=== PATIENT | female | born 1940 | race Caucasian/White ===

== ENCOUNTER 2017-02-11 22:50 | Inpatient (IN) | payer MEDICARE ==
[~2017-02-11] VITALS: Ht 149.9 cm; Wt 72.1 kg
[~2017-02-11 22:50] MED LIST: ACET-2321 PO; AMLO10TA57 PO; AMOX250T PO; ASPI-558 PO; ATEN-39 PO; B2/V1TAB PO; BENZ-16 PO; CARV12.52 PO; CARV25TA2 PO; CLOP75TA PO; HYDR25TA PO; LORA10TA62 PO; METF500T4 PO; OMEP-29 PO; PROM5SYR PO; SIMV20TA89 PO
--- OUTSIDE RECORDS SUMMARY | 2017-02-11 22:54 | XMS REPORT | Referral Summary ---
Author Author [facility] Organization [facility] Address Unknown Phone Unavailable Care Team Providers Care Manager Web Application Name Role Phone Avery Perez Primary Care Physician [phone] Encounter VC Date(s): 02/12/16 - 02/12/16 [facility] [address] [place] [address]- Discharge Disposition: 01-Home or Self Care Attending Physician: Jori Perez MD Admitting Physician: Jori Perez MD Vital Signs Most recent to 1 oldest [Reference Range]: Peripheral Pulse 44 bpm Rate [60-100 bpm] *LOW* (02/12/16 3:43 PM) Blood Pressure 130/70 mmHg [90-140/60-90 mmHg] (02/12/16 3:43 PM) Mean Arterial 90 mmHg Pressure, Cuff (02/12/16 3:43 PM) Problem List Condition Effective Dates Status Health Status Informant Acquired hammer Active toe(Confirmed) Allergies(Confirmed) Active Allergies(Confirmed) Resolved Arthritis(Confirmed) Resolved Bronchitis(Confirmed Resolved ) Cataract(Confirmed) Resolved Cerebral vascular Active accident(Confirmed) Chicken Resolved pox(Confirmed) Coronary artery Active disease(Confirmed) Depression(Confirmed Active ) Deviated nasal Resolved septum(Confirmed) Diabetes(Confirmed) Resolved Dysphagia(Confirmed) Active Ectopic 1969 Resolved (Confirmed) Fatigue(Confirmed) Active GERD(Confirmed) Active Anticoagulation Active adequate(Confirmed) HX ECTOPIC Active (Confirmed) Headaches - Active Tension(Confirmed) Hearing Resolved loss(Confirmed) High blood Resolved pressure(Confirmed) High Active Cholesterol(Confirme d) Hyperlipemia(Confirm Active ed) Incontinence - Active urge(Confirmed) Insomnia(Confirmed) Active Irritable bowel Resolved syndrome(Confirmed) Obesity(Confirmed) Active patient Osteoarthritis(Confi Active rmed) Osteopenia(Confirmed Active ) Osteoporosis(Confirm Active ed) Overweight(Confirmed Active ) Pneumonia(Confirmed) Resolved Sinus Resolved infection(Confirmed) Transient ischemic 1992 Active attack (TIA)(Confirmed)1, 2 1TIA Plavix 2blood thinner Allergies, Adverse Reactions, Alerts No Known Medication Allergies Medications amLODIPine 5 mg oral tablet 5 mg 1 tabs, Oral, Daily, # 90 tabs, 3 Refill(s), Pharmacy: [facility] [id number], 1 tabs Oral Daily Start Date: 01/17/16 Status: Ordered Aspir 81 mg, Oral, Daily, 0 Refill(s) Start Date: 04/25/14 Status: Ordered carvedilol 25 mg oral tablet See Instructions, Take 1/2 tab q am, and 1 tab q pm., # 135 tabs, 4 Refill(s), other reason (Rx), 1 tabs Oral BID Start Date: 02/09/16 Status: Ordered Claritin 10 mg oral tablet 1 tabs, Oral, Daily, # 30 tabs, 0 Refill(s) Start Date: 04/25/14 Status: Ordered clopidogrel 75 mg oral tablet See Instructions, TAKE 1 TABLET BY MOUTH EVERY DAY, # 90 tabs, 0 Refill(s), Pharmacy: [facility] [id number], TAKE 1 TABLET BY MOUTH EVERY DAY Start Date: 01/15/16 Status: Ordered [place] NEXT TEST STRIPS 100'S See Instructions, USE TO TEST BLOOD SUGARS ONCE DAILY, # 100 strip, 2 Refill(s) , eRx: [facility] [id number], USE TO TEST BLOOD SUGARS ONCE DAILY Start Date: 05/16/15 Status: Ordered cyclobenzaprine 10 mg oral tablet See Instructions, 0.5-1 TABS ORAL Q8HR,PRN: NEEDED FOR SPASM, # 100 tabs, eRx : [facility] [id number], 0.5-1 TABS ORAL Q8HR,PRN: NEEDED FOR SPASM Start Date: 10/24/15 Status: Ordered doxycycline hyclate 100 mg oral capsule 100 mg 1 caps, Oral, BID, X 7 days, # 14 caps, 0 Refill(s), Pharmacy: [facility] [id number], 1 caps Oral BID,x7 days Start Date: 02/12/16 Stop Date: 02/19/16 Status: Ordered Glucometer strips (DME) DME Item patient tests 1 time daily for dx. 250.00 Uses [employer] next EZ Monitor, See Instructions, # 1 boxes, 3 Refill(s), Pharmacy: [facility] [id number], patient tests 1 time daily for dx. 250.00 Uses [employer] next EZ Monitor, Supply Start Date: 07/20/14 Status: Ordered hydrochlorothiazide 25 mg oral tablet See Instructions, TAKE 1 TABLET BY MOUTH DAILY, # 45 tabs, eRx: [facility] [id number], TAKE 1 TABLET BY MOUTH DAILY Start Date: 01/01/16 Status: Ordered ICaps with Lutein and Zeaxan tabs, Oral, Daily, 0 Refill(s) Start Date: 04/25/14 Status: Ordered lutein 10 mg, Oral, Daily, 0 Refill(s) Start Date: 02/09/16 Status: Ordered metFORMIN 500 mg oral tablet See Instructions, 1 TABS ORAL DAILY, # 90 tabs, 1 Refill(s), eRx: [facility] [id number], 1 TABS ORAL DAILY Start Date: 08/21/15 Status: Ordered pravastatin 40 mg oral tablet 40 mg 1 tabs, Oral, Daily, # 90 tabs, 5 Refill(s), Pharmacy: [facility] [id number], 1 tabs Oral Daily Start Date: 09/27/15 Status: Ordered PriLOSEC 20 mg oral delayed release capsule See Instructions, TAKE 1 CAPSULE BY MOUTH EVERY DAY., # 90 caps, 1 Refill(s), eRx: [facility] [id number], TAKE 1 CAPSULE BY MOUTH EVERY DAY. Start Date: 08/21/15 Status: Ordered Tylenol Regular Strength 325 mg oral tablet tabs, Oral, q4hr, 0 Refill(s) Start Date: 04/25/14 Status: Ordered Results No data available for this section Immunizations Vaccine Date Refusal Reason tetanus/diphth/pertuss (Tdap) adult/adol 05/27/13 influenza virus vaccine, inactivated1 07/05/15 influenza virus vaccine, live 06/29/13 influenza virus vaccine, live 06/24/12 pneumococcal 13-valent conjugate vaccine2 07/05/15 tetanus-diphth toxoids (Td) adult/adol 12/16/02 zoster vaccine live 05/09/14 1Location History: [facility] 2Location History: [facility] Procedures Procedure Date Related Diagnosis Body Site Laparoscopic cholecystectomy with 5/28/15 cholangiography Colonoscopies1 05/11/10 Colonoscopy 2010 ECTOPIC 1969 Appendectomy Plastic surgery2 plastic surgery on nose 1MULTIADENOMATOUS POLYPS 3 YEARS REPEAT 2nose Social History Social History Type Response Smoking Status Never smoker Assessment and Plan Extracted from: Title: Ambulatory Patient Education Author: Jori Perez MD Date: Home Health Care Cellulitis Cellulitis is an infection of the skin and the tissue beneath it. The infected area is usually red and tender. Cellulitis occurs most often in the arms and lower legs. CAUSES Cellulitis is caused by bacteria that enter the skin through cracks or cuts in the skin. The most common types of bacteria that cause cellulitis are staphylococci and streptococci. SIGNS AND SYMPTOMS Redness and warmth. Swelling. Tenderness or pain. Fever. DIAGNOSIS Your health care provider can usually determine what is wrong based on a physical exam. Blood tests may also be done. TREATMENT Treatment usually involves taking an antibiotic medicine. HOME CARE INSTRUCTIONS Take your antibiotic medicine as directed by your health care provider. Finish the antibiotic even if you start to feel better. Keep the infected arm or leg elevated to reduce swelling. Apply a warm cloth to the affected area up to 4 times per day to relieve pain. Take medicines only as directed by your health care provider. Keep all follow-up visits as directed by your health care provider. SEEK MEDICAL CARE IF: You notice red streaks coming from the infected area. Your red area gets larger or turns dark in color. Your bone or joint underneath the infected area becomes painful after the skin has healed. Your infection returns in the same area or another area. You notice a swollen bump in the infected area. You develop new symptoms. You have a fever. SEEK IMMEDIATE MEDICAL CARE IF: You feel very sleepy. You develop vomiting or diarrhea. You have a general ill feeling (malaise) with muscle aches and pains. MAKE SURE YOU: Understand these instructions. Will watch your condition. Will get help right away if you are not doing well or get worse. This information is not intended to replace advice given to you by your health care provider. Make sure you discuss any questions you have with your health care provider. Document Released: 06/18/2006 Document Revised: 01/23/2015 Document Reviewed: Exit[employer] Patient Information 2015 [employer]. No follow up information was provided. Extracted from: Title: Office Visit Note Author: Jori Perez MD Date: 02/12/16 Assessment/Plan Brown recluse spider bite Routine wound care discussed. Doxycycline 100mg po bid for seven days. Call report. Needs to postpone surgery on foot if not resolved prior to surgery date.RTC sooner ifworse in any way. The patient has family members present who are agreeable with today's plan and have no additional concerns or requests. here. Cellulitis See above. Given doxycycline. Diabetes The patient was notified for the need for regular quarterly f/u of their diabetes. Further any pertinent medication, supplies, etc were refilled. Additionally, they are to have annual eye exams, foot exams, and regular care. High blood pressure This issue was reviewed, appears stable, and current therapy continued except as mentioned. Appropriate lab was reviewed from the most recent appropriate entry and lab was ordered if needed in the cpoe/nursing orders, and follow up recommended generally in 90 days and no later then six months. The patient reports their blood pressure has been stable at home and is not having any significant or related problems. There has been no chest pain, chest pressure, soa/dominguez. Orders: doxycycline, 100 mg 1 caps, Oral, BID, X 7 days, # 14 caps, 0 Refill(s ), [id number], 1 caps Oral BID,x7 days
--- OUTSIDE RECORDS SUMMARY | 2017-02-11 22:54 | XMS REPORT | Continuity of Care Document ---
Author Author [facility] Organization [facility] Address Unknown Phone Unavailable Support Name Relationship Address Phone ALLYSON DONNELLY APRN Caregiver [address] [place] [address] Unavailable FARIDEH PATEL MD Caregiver [address] [place] [address] [place] [address] Unavailable MUNIRA HELMS Next Of Kin [place], [place] [phone] Insurance Providers Guarantor Margoth Adames Address [address] [place] [address] Email DENIED/NO TO PT PORT Payer Medicare Policy Number [id number] Subscriber's Name Margoth Adames Relationship 18 Self Payer [facility] Policy Number [id number] Subscriber's Name Margoth Adames Johnny Relationship 18 Self Group Number [id number] Chief Complaint and Reason for Visit Chief Complaint Cough,Fever,Flu,URI Reason for Visit Otitis media Bronchitis Problems Active Problems Medical Problem Onset Date Status Acute cholecystitis Unknown Acute Fatigue Unknown Acute Nausea Unknown Acute PVCs (premature ventricular contractions) Unknown Acute Palpitations Unknown Acute Symptomatic cholelithiasis Unknown Acute Viral gastroenteritis Unknown Acute Past Problems Medical Problem Onset Date Bronchitis Unknown Otitis media Unknown Medications Current Home Medications Medication Dose Units Route Directions Days Qty Instructions Start Date Acetaminophen (Tylenol) 325 Mg Tablet 1 Tab Oral Daily as needed for Pain 02/15/15 Amlodipine Besylate (Norvasc) 10 Mg Tablet 10 Mg Oral Daily 05/11 Amoxicillin Trihydrate (Amoxicillin) 250 Mg Tablet 1 Tab Oral Three Times A Day [address] Almanza protocol provider 05/22/16 Aspirin (Aspir 81) 81 Mg Tablet. 81 Mg Oral Daily 05/11/10 Atenolol 50 Mg Tablet 50 Mg Oral Daily 05/11/10 B2/Vit A,C & E/Lut/Zeaxanth/Mn (Icaps Tablet) 1 Each Tablet.er 1 Tab Oral Daily 02/15/15 Benzonatate 100 Mg Capsule 1 Cap Oral Every 6 Hours as needed for Cough 10 Days 40 Capsule DO NOT BITE, CHEW, OR CRUSH 05/22/16 Carvedilol 12.5 Mg Tablet 1 Tab Oral Daily BEST WITH FOOD. 02/23/16 Carvedilol 25 Mg Tablet 1 Tab Oral Bedtime BEST WITH FOOD. 02/23/16 Clopidogrel Bisulfate (Plavix) 75 Mg Tablet 1 Tab Oral Daily Hydrochlorothiazide 25 Mg Tablet 1 Tab Oral Give With Breakfast 02/04/15 Loratadine (Claritin) 10 Mg Tablet 1 Tab Oral Daily 02/15/15 Metformin Hcl 500 Mg Tablet 500 Mg Oral Give With Breakfast Take one tablet, by mouth, one time a day with breakfast. 02/04/15 Omeprazole (Prilosec) 20 Mg Capsule.dr 20 Mg Oral Daily 12/19/10 Promethazine Hcl/Codeine (Prometh-Codein 6.25-10 Mg/5 Ml) 5 Ml Syrup 5 Ml Oral Bedtime as needed for Prn Orders [address] Almanza protocol provider 05/22/16 Simvastatin 20 Mg Tablet 20 Mg Oral Bedtime 12/19/10 Past Home Medications Medication Directions Ordered Status Aspirin 325 Mg Tablet, 325 Mg Oral Daily 05/10/10 Discontinued Clopidogrel Bisulfate (Plavix) 75 Mg Tablet, 75 Mg Oral Daily 05/10/10 Discontinued Clopidogrel Bisulfate (Plavix) 75 Mg Tablet, 75 Mg Oral 12/19/10 Discontinued Hydrocodone/Acetaminophen (Hydrocodon-Acetaminophen 5-325) 1 Tab Tablet, 1-2 Tab Oral Every 5 Hours as needed for Pain 02/17/15 Discontinued Ranitidine Hcl 150 Mg Capsule, 150 Mg Oral Daily 05/11/10 Discontinued Social History Social History Problem Response Recorded Date/Time Onset Date Status Hx Substance Use No 02/21/2016 3:00pm Not Applicable Not Applicable Hx Alcohol Use Y GLASS OF WINE OCCASIONALLY 02/21/2016 3:00pm Not Applicable Not Applicable Has the pt used tobacco in the last 12 months No 02/21/2016 3:00pm Not Applicable Not Applicable Tobacco Usage none 02/04/2015 7:20pm Not Applicable Not Applicable Hospital Discharge Instructions No hospital discharge instructions. Plan of Care Discharge Date 05/22/16 1:00pm Disposition 01 DISCHARGED HOME, SELF-CARE Condition at Discharge Stable Instructions/Education Provided Middle Ear Infection Acute Bronchitis Prescriptions See Medication Section Referrals FARIDEH PATEL MD Address: [address] [place] [address] [place], [place] [phone] Functional Status No functional status results. Allergies, Adverse Reactions, Alerts Allergen Type Severity Reaction Status Last Updated No Known Drug Allergies Allergy Unknown Active 05/22/16 Immunizations Query Response on File Recorded Date/Time Hx Influenza Vaccination Y fall 201402/21/16 3:00pm Hx Pneumococcal Vaccination Y WITHIN PAST 5 YEARS 02/21/16 3:00pm Hx Influenza Vaccination Y fall 201402/21/16 3:00pm Influenza Vaccine Hx 201405/22/16 12:19pm Tetanus Diptheria Vaccine History UNKNOWN 05/22/16 12:19pm Vital Signs Acute Vital Signs Vital Response Date/Time Temperature (Fahrenheit) 99.1 deg F (96.8 - 99.1) 05/22/2016 12:16pm Temperature (Calculated Celsius) 37.91219 degrees C (36.0 - 37.3) 05/22/2016 12:16pm Temperature Source Temporal 02/23/2016 9:18am Pulse Rate (adult) 58 bpm (60 - 100) 05/22/2016 12:16pm Respiratory Rate 23 breaths/min (10 - 20) 05/22/2016 12:16pm O2 Sat by Pulse Oximetry 95 % (90 - 100) 05/22/2016 12:16pm Oxygen Delivery Method Room Air 02/23/2016 10:10am Blood Pressure 131/66 mm Hg 05/22/2016 12:16pm Blood Pressure Source Automatic Cuff 02/23/2016 10:10am Height (Feet) 4 feet 02/23/2016 7:24am Height (Inches) 11.00 inches 02/23/2016 7:24am Weight (Kilograms) 72.200 kg 05/22/2016 12:16pm Body Mass Index (BMI) 31.3 02/23/2016 7:24am Results Laboratory Results Test Name Result Units Flags Reference Collection Date/Time Result Date/ Time Comments Icterus Index < 2 0-7 02/23/2016 7:27am 02/23/2016 7:45am Chemistry Specimen Hemolysis < 15 0-25 02/23/2016 7:27am 02/23/2016 7 :45am 0-25: Specimen Exhibited No Hemolysis. Turbidity < 20 0-20 02/23/2016 7:27am 02/23/2016 7:45am Sodium Level 142 MEQ/L 134-144 02/23/2016 7:27am 02/23/2016 7:45am Potassium Level 3.4 MEQ/L L 3.6-5 02/23/2016 7:27am 02/23/2016 7:45am Chloride Level 106 MEQ/L 98-107 02/23/2016 7:am 02/23/2016 7:45am Carbon Dioxide Level 27 MEQ/L 22-30 02/23/2016 7:02/23/2016 7: 45am Anion Gap 9 MEQ/L 5-15 02/23/2016 7:02/23/2016 7:45am Blood Urea Nitrogen 22.0 MG/DL H 7-17 02/23/2016 7:02/23/2016 7: 45am Creatinine 0.6 MG/DL L 0.7-1.2 02/23/2016 7:am 02/23/2016 7:45am BUN/Creatinine Ratio 37 RATIO H 6-02/23/2016 7:02/23/2016 7: 45am Glomerular Filtration Rate Calc 97 02/23/2016 7:am 02/23/2016 7: 45am Glucose Level 124 MG/DL H 65-110 02/23/2016 7:am 02/23/2016 7:45am Calculated Osmolality 277 MOSM/KG 261-280 02/23/2016 7:am 02/23/2016 7:45am Calcium Level 9.0 MG/DL 8.4-10.2 02/23/2016 7:27am 02/23/2016 7:45am Glucometer 122 mg/dL H 65-110 02/23/2016 7:52am 02/23/2016 8:00am Procedures Procedure Status Date Provider(s) REPAIR OF HAMMERTOE Completed 02/23/16 RAVIN GUTIERREZ DPIsrael ROUTINE VENIPUNCTURE Completed 02/23/16 X-RAY EXAM OF FOOT Completed 02/23/16 METABOLIC PANEL TOTAL CA Completed 02/23/16 REAGENT STRIP/BLOOD GLUCOSE Completed 02/23/16 635294"INJECTION, CEFAZOLIN SODIUM, 500 MG" Completed 02/23/16 PROPOFOL INJ 500 MG/50ML Completed 02/23/16 061299"RINGERS LACTATE INFUSION, UP TO 1000 CC" Completed 02/23/16 Encounters Encounter Location Arrival/Admit Date Discharge/Depart Date Attending Provider Departed Emergency Room [facility] 05/22/16 12:06pm 05/22/16 1: 00pm ALLYSON DONNELLY APRN Departed [facility] Day Care [facility] 02/23/16 6:54am 02/23/16 10 :18am RAVIN GUTIERREZ DPM Recent Diagnosis
--- OUTSIDE RECORDS SUMMARY | 2017-02-11 22:54 | XMS REPORT | Referral Summary ---
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 Name Role Phone Avery Perez Primary Care Physician [phone] Encounter VC Date(s): 02/07/15 - 02/07/15 [facility] [address] [place] [address] TERRENCE Bell [phone]- us Discharge Diagnosis: History of stroke Discharge Diagnosis: Gallstones Discharge Diagnosis: Pain in the RUQ of abdomen Discharge Disposition: 01-Home or Self Care Attending Physician: Brian Araya MD Admitting Physician: Brian Araya MD Referring Physician: Jori Perez MD Vital Signs Most recent to 1 oldest [Reference Range]: Temperature Tympanic 37 degC [36.6-38.1 degC] (02/07/15 9:05 AM) Peripheral Pulse 64 bpm Rate [60-100 bpm] (02/07/15 9:05 AM) Respiratory Rate 16 br/min [14-20 br/min] (02/07/15 9:05 AM) Blood Pressure 110/60 mmHg [90-140/60-90 mmHg] (02/07/15 9:05 AM) Problem List Condition Effective Dates Status Health Status Informant Allergies(Confirmed) Active Allergies(Confirmed) Resolved Arthritis(Confirmed) Resolved Bronchitis(Confirmed Resolved ) Cataract(Confirmed) Resolved Cerebral vascular Active accident(Confirmed) Chicken Resolved pox(Confirmed) Coronary artery Active disease(Confirmed) Depression(Confirmed Active ) Deviated nasal Resolved septum(Confirmed) Diabetes(Confirmed) Resolved Dysphagia(Confirmed) Active Ectopic 1969 Resolved (Confirmed) Fatigue(Confirmed) Active GERD(Confirmed) Active HX ECTOPIC Active (Confirmed) Headaches - Active [...] Reactions, Alerts No Known Medication Allergies Medications Aspir 81 mg, Oral, Daily, 0 Refill(s) Start Date: 04/25/14 Status: Ordered atenolol 50 mg oral tablet See Instructions, TAKE 1 TABLET BY MOUTH TWICE A DAY., # 180 tabs, eRx: [facility] [id number], TAKE 1 TABLET BY MOUTH TWICE A DAY. Start Date: 02/27/15 Status: Ordered Claritin 10 mg oral tablet 1 tabs, Oral, Daily, # 30 tabs, 0 Refill(s) Start Date: 04/25/14 Status: Ordered clopidogrel 75 mg oral tablet 1 tabs, Oral, Daily, # 90 tabs, 1 Refill(s), Pharmacy: [facility] [id number], 1 tabs Oral Daily Start Date: 01/23/15 Status: Ordered [place] NEXT TEST STRIPS 100'S See Instructions, USE TO TEST BLOOD SUGARS ONCE DAILY, # 100 strip, 2 Refill(s) , eRx: [facility] [id number], USE TO TEST BLOOD SUGARS ONCE DAILY Start Date: 05/16/15 Status: Ordered cyclobenzaprine 10 mg oral tablet See Instructions, 0.5-1 TABS ORAL Q8HR,PRN: NEEDED FOR SPASM, # 100 tabs, eRx : [facility] [id number], 0.5-1 TABS ORAL Q8HR,PRN: NEEDED FOR SPASM Start Date: 08/08/14 Status: Ordered Glucometer strips (DME) DME Item patient tests 1 time daily for dx. 250.00 Uses [facility] next EZ Monitor, See Instructions, # 1 boxes, 3 Refill(s), Pharmacy: [facility] [id number], patient tests 1 time daily for dx. 250.00 Uses [facility] next EZ Monitor, Supply Start Date: 07/20/14 Status: Ordered ICaps with Lutein and Zeaxan tabs, Oral, Daily, 0 Refill(s) Start Date: 04/25/14 Status: Ordered metFORMIN 500 mg oral tablet See Instructions, 1 TABS ORAL DAILY, # 90 tabs, eRx: [facility] [id number] , 1 TABS ORAL DAILY Start Date: 05/15/15 Status: Ordered Norvasc 10 mg oral tablet See Instructions, TAKE 1 TABLET BY MOUTH EVERY DAY., # 90 tabs, eRx: [facility] 93933, TAKE 1 TABLET BY MOUTH EVERY DAY. Start Date: 05/15/15 Status: Ordered Plavix 75 mg tablet See Instructions, TAKE 1 TABLET BY MOUTH EVERY DAY., # 90 tabs, eRx: [facility] 72710, TAKE 1 TABLET BY MOUTH EVERY DAY. Start Date: 01/23/15 Status: Ordered PriLOSEC 20 mg oral delayed release capsule See Instructions, TAKE 1 CAPSULE BY MOUTH EVERY DAY., # 90 caps, eRx: [facility] [id number], TAKE 1 CAPSULE BY MOUTH EVERY DAY. Start Date: 05/15/15 Status: Ordered Tylenol Regular Strength 325 mg oral tablet tabs, Oral, q4hr, 0 Refill(s) Start Date: 04/25/14 Status: Ordered Zocor 20 mg oral tablet See Instructions, 1 TABS ORAL BEDTIME (ONCE A DAY), # 90 tabs, 1 Refill(s), eRx : [facility] 00339, 1 TABS ORAL BEDTIME (ONCE A DAY) Start Date: 03/27/15 Status: Ordered Zofran ODT 4 mg oral tablet, disintegrating 4 mg 1 tabs, Oral, q6hr, as needed for nausea/vomiting, 0 Refill(s) Start Date: 07/20/15 Status: Ordered Results No data available for this section Immunizations Vaccine Date Refusal Reason tetanus/diphth/pertuss (Tdap) adult/adol 05/27/13 influenza virus vaccine, inactivated1 07/05/15 influenza virus vaccine, live 06/29/13 influenza virus vaccine, live 06/24/12 pneumococcal 13-valent conjugate vaccine2 07/05/15 tetanus-diphth toxoids (Td) adult/adol 12/16/02 zoster vaccine live 05/09/14 1Location History: [facility] 2Location History: [facility] Procedures Procedure Date Related Diagnosis Body Site Laparoscopic cholecystectomy with 02/16/15 cholangiography Colonoscopies1 05/11/10 Colonoscopy 2010 ECTOPIC 1969 Appendectomy Plastic surgery2 plastic surgery on nose 1MULTIADENOMATOUS POLYPS 3 YEARS REPEAT 2nose Social History Social History Type Response Smoking Status Never smoker Assessment and Plan Extracted from: Title: Ambulatory Patient Education Author: Antonia Foss WEB PRODUCER Date : 02/07/15 Surgery Laparoscopic Cholecystectomy Laparoscopic cholecystectomy is surgery to remove the gallbladder. The gallbladder is located in the upper right part of the abdomen, behind the liver. It is a storage sac for bile produced in the liver. Bile aids in the digestion and absorption of fats. Cholecystectomy is often done for inflammation of the gallbladder (cholecystitis ). This condition is usually caused by a buildup of gallstones (cholelithiasis ) in your gallbladder. Gallstones can block the flow of bile, resulting in inflammation and pain. In severe cases, emergency surgery may be required. When emergency surgery is not required, you will have time to prepare for the procedure. Laparoscopic surgery is an alternative to open surgery. Laparoscopic surgery has a shorter recovery time. Your common bile duct may also need to be examined during the procedure. If stones are found in the common bile duct, they may be removed. LET YOUR HEALTH CARE PROVIDER KNOW ABOUT: Any allergies you have. All medicines you are taking, including vitamins, herbs, eye drops, creams , and mppb-whl-pgoceay medicines. Previous problems you or members of your family have had with the use of anesthetics. Any blood disorders you have. Previous surgeries you have had. Medical conditions you have. RISKS AND COMPLICATIONS Generally, this is a safe procedure. However, as with any procedure, complications can occur. Possible complications include: Infection. Damage to the common bile duct, nerves, arteries, veins, or other internal organs such as the stomach, liver, or intestines. Bleeding. A stone may remain in the common bile duct. A bile leak from the cyst duct that is clipped when your gallbladder is removed. The need to convert to open surgery, which requires a larger incision in the abdomen. This may be necessary if your surgeon thinks it is not safe to continue with a laparoscopic procedure. BEFORE THE PROCEDURE Ask your health care provider about changing or stopping any regular medicines. You will need to stop taking aspirin or blood thinners at least 5 days prior to surgery. Do not eat or drink anything after midnight the night before surgery. Let your health care provider know if you develop a cold or other infectious problem before surgery. PROCEDURE You will be given medicine to make you sleep through the procedure ( general anesthetic ). A breathing tube will be placed in your mouth. When you are asleep, your surgeon will make several small cuts (incisions ) in your abdomen. A thin, lighted tube with a tiny camera on the end (laparoscope ) is inserted through one of the small incisions. The camera on the laparoscope sends a picture to a TV screen in the operating room. This gives the surgeon a good view inside your abdomen. A gas will be pumped into your abdomen. This expands your abdomen so that the surgeon has more room to perform the surgery. Other tools needed for the procedure are inserted through the other incisions. The gallbladder is removed through one of the incisions. After the removal of your gallbladder, the incisions will be closed with stitches, gela, or skin glue. AFTER THE PROCEDURE You will be taken to a recovery area where your progress will be checked often. You may be allowed to go home the same day if your pain is controlled and you can tolerate liquids. Document Released: 09/08/2006 Document Revised: 06/29/2014 Document Reviewed: [facility] Patient Information 2014 [employer]. No follow up information was provided. Extracted from: Title: Office Visit Note Author: Antonia Foss APRN Date: 02/07/15 Assessment/Plan Gallstones Ordered: Office Visit Level 3 Est 69464 History of stroke She has stopped her Plavix on Friday. Platelet inhibition study drawn this morning is 155 Ordered: Office Visit Level 3 Est 82623 Pain in the RUQ of abdomen Ordered: Office Visit Level 3 Est 52997 Records from emergency room visit in Dr. Araya's notes reviewed. CT scan obtained in the emergency department revealed findings compatible with acute cholecystitis. There was no radiographic gallstones seen on CT scan. There is the WBC on the was 6.01 on the it increased 11.8. She was discharged to home on Friday with Levaquin 500 mg by mouth daily for 7 days. Her AST and ALT were elevated at 237 and 201 respectively in the hospital and today's lab at [facility] indicate the AST and ALT have declined to 53 and 135 respectively. Bilirubin on 05 February was 0.80 and today her bilirubin is 1.50. Her platelet inhibition study done today reveals a score of 155. Reference presurgical range recommended is greater than 237. Levels less than 194 are highly indicative of platelet inhibitor effect. It was our original goal to perform laparoscopic cholecystectomy later today, given the fact that she has a gallstone lodged in the neck of her gallbladder. But, given the fact that her platelet inhibition study reveals her to be at greater risk for bleeding and the fact that she is not acutely ill, having minimal pain, and her liver function tests have improved, it is advised by Dr. Araya that we postpone surgery until the original February 16 date. If she becomes acutely ill before that time she presented is to present tothe emergency room or our office.
--- OUTSIDE RECORDS SUMMARY | 2017-02-11 22:54 | XMS REPORT | Referral Summary ---
Author Author [facility] Organization [facility] Address Unknown Phone Unavailable Care Team Providers Care Film Reader Name Role Phone Avery Perez Primary Care Physician [phone] Encounter Date(s): 07/28/15 - 07/28/15 [facility] [address] [place] [id number] Discharge Disposition: 01-Home or Self Care Attending Physician: Jori Perez MD Admitting Physician: Jori Perez MD Vital Signs No data available for this section Problem List Condition Effective Dates Status Health [...] TWICE A DAY., # 180 tabs, eRx: [facility] [id number], TAKE 1 TABLET BY MOUTH TWICE A DAY. Start Date: 02/27/15 Status: Ordered Claritin 10 mg oral tablet 1 tabs, Oral, Daily, # 30 tabs, 0 Refill(s) Start Date: 04/25/14 Status: Ordered clopidogrel 75 mg oral tablet 1 tabs, Oral, Daily, # 90 tabs, 1 Refill(s), Pharmacy: [facility] 16519, 1 tabs Oral Daily Start Date: 01/23/15 Status: Ordered charity: water NEXT TEST STRIPS 100'S See Instructions, USE TO TEST BLOOD SUGARS ONCE DAILY, # 100 strip, 2 Refill(s) , eRx: [facility] 19355, USE TO TEST BLOOD SUGARS ONCE DAILY Start Date: 05/16/15 Status: Ordered cyclobenzaprine 10 mg oral tablet See Instructions, 0.5-1 TABS ORAL Q8HR,PRN: NEEDED FOR SPASM, # 100 tabs, eRx : [facility] 64723, 0.5-1 TABS ORAL Q8HR,PRN: NEEDED FOR SPASM Start Date: 08/08/14 Status: Ordered Glucometer strips (DME) DME Item patient tests 1 time daily for dx. 250.00 Uses [facility] next EZ Monitor, See Instructions, # 1 boxes, 3 Refill(s), Pharmacy: [facility] 98864, patient tests 1 time daily for dx. 250.00 Uses [employer] next EZ Monitor, Supply Start Date: 07/20/14 Status: Ordered ICaps with Lutein and Zeaxan tabs, Oral, Daily, 0 Refill(s) Start Date: 04/25/14 Status: Ordered metFORMIN 500 mg oral tablet See Instructions, 1 TABS ORAL DAILY, # 90 tabs, eRx: [facility] [id number] , 1 TABS ORAL DAILY Start Date: 05/15/15 Status: Ordered Norvasc 10 mg oral tablet See Instructions, TAKE 1 TABLET BY MOUTH EVERY DAY., # 90 tabs, eRx: [facility] [id number], TAKE 1 TABLET BY MOUTH EVERY DAY. Start Date: 05/15/15 Status: Ordered Plavix 75 mg tablet See Instructions, TAKE 1 TABLET BY MOUTH EVERY DAY., # 90 tabs, eRx: [facility] 87127, TAKE 1 TABLET BY MOUTH EVERY DAY. Start Date: 01/23/15 Status: Ordered PriLOSEC 20 mg oral delayed release capsule See Instructions, TAKE 1 CAPSULE BY MOUTH EVERY DAY., # 90 caps, eRx: [facility] 29685, TAKE 1 CAPSULE BY MOUTH EVERY DAY. Start Date: 05/15/15 Status: Ordered Tylenol Regular Strength 325 mg oral tablet tabs, Oral, q4hr, 0 Refill(s) Start Date: 04/25/14 Status: Ordered Zocor 20 mg oral tablet See Instructions, 1 TABS ORAL BEDTIME (ONCE A DAY), # 90 tabs, 1 Refill(s), eRx : [facility] 68299, 1 TABS ORAL BEDTIME (ONCE A DAY) [...] 12/16/02 zoster vaccine live 05/09/14 1Location History: [facility] 2Location [facility] Procedures Procedure Date Related Diagnosis Body Site Laparoscopic cholecystectomy with 02/16/15 cholangiography Colonoscopies1 05/11/10 Colonoscopy 2010 ECTOPIC 1969 Appendectomy Plastic surgery2 plastic surgery on nose 1MULTIADENOMATOUS POLYPS 3 YEARS REPEAT 2nose Social History Social History Type Response Smoking Status Never smoker Assessment and Plan No data available for this section
--- OUTSIDE RECORDS SUMMARY | 2017-02-11 22:54 | XMS REPORT | Referral Summary ---
Author Author [facility] Organization [facility] Address Unknown Phone Unavailable Care Team Providers Care Branch Service Leader Name Role Phone Avery Perez Primary Care Physician [phone] Encounter VC Date(s): 02/16/15 - 02/16/15 [facility] [address] [place] [address] T[place] Bell [phone]- Discharge Disposition: 01-Home or Self Care Attending Physician: Brian Zelaya MD Admitting Physician: Brian Zelaya MD Vital Signs No data available for [...] MOUTH TWICE A DAY., # 180 tabs, 1 Refill(s), eRx: [facility] [id number], TAKE 1 TABLET BY MOUTH TWICE A DAY. Start Date: 08/21/15 Status: Ordered Claritin 10 mg oral tablet 1 tabs, Oral, Daily, # 30 tabs, 0 Refill(s) Start Date: 04/25/14 Status: Ordered clopidogrel 75 mg oral tablet 1 tabs, Oral, Daily, # 90 tabs, 1 Refill(s), Pharmacy: [facility] 33387, 1 tabs Oral Daily Start Date: 01/23/15 Status: Ordered [place]3 NEXT TEST STRIPS 100'S See Instructions, USE TO TEST BLOOD SUGARS ONCE DAILY, # 100 strip, 2 Refill(s) , eRx: [facility] 76231, USE TO TEST BLOOD SUGARS ONCE DAILY Start Date: 05/16/15 Status: Ordered cyclobenzaprine 10 mg oral tablet See Instructions, 0.5-1 TABS ORAL Q8HR,PRN: NEEDED FOR SPASM, # 100 tabs, eRx : [facility] 21180, 0.5-1 TABS ORAL Q8HR,PRN: NEEDED FOR SPASM Start Date: 08/08/14 Status: Ordered Glucometer strips (DME) DME Item patient tests 1 time daily for dx. 250.00 Uses [facility] next EZ Monitor, See Instructions, # 1 boxes, 3 Refill(s), Pharmacy: [facility] 62306, patient tests 1 time daily for dx. 250.00 Uses [facility] next EZ Monitor, Supply Start Date: 07/20/14 Status: Ordered hydrochlorothiazide 25 mg oral tablet mg tabs, Oral, Daily, 0 Refill(s) Start Date: 08/24/15 Status: Ordered ICaps with Lutein and Zeaxan tabs, Oral, Daily, 0 Refill(s) Start Date: 04/25/14 Status: Ordered metFORMIN 500 mg oral tablet See Instructions, 1 TABS ORAL DAILY, # 90 tabs, 1 Refill(s), eRx: [facility] [id number], 1 TABS ORAL DAILY Start Date: 08/21/15 Status: Ordered Norvasc 10 mg oral tablet See Instructions, TAKE 1 TABLET BY MOUTH EVERY DAY., # 90 tabs, 1 Refill(s), eRx : [facility] 72225, TAKE 1 TABLET BY MOUTH EVERY DAY. Start Date: 08/21/15 Status: Ordered Plavix 75 mg tablet See Instructions, TAKE 1 TABLET BY MOUTH EVERY DAY., # 90 tabs, eRx: [facility] 09989, TAKE 1 TABLET BY MOUTH EVERY DAY. Start Date: 01/23/15 Status: Ordered PriLOSEC 20 mg oral delayed release capsule See Instructions, TAKE 1 CAPSULE BY MOUTH EVERY DAY., # 90 caps, 1 Refill(s), eRx: [facility] 70147, TAKE 1 CAPSULE BY MOUTH EVERY DAY. Start Date: 08/21/15 Status: Ordered Tylenol Regular Strength 325 mg oral tablet tabs, Oral, q4hr, 0 Refill(s) Start Date: 04/25/14 Status: Ordered Zofran ODT 4 mg oral [...] Body Site Laparoscopic cholecystectomy with 02/16/15 cholangiography Laparoscopy, surgical; cholecystectomy with 02/16/15 cholangiography Colonoscopies1 05/11/10 Colonoscopy 2010 ECTOPIC 1969 Appendectomy Plastic surgery2 plastic surgery on nose 1MULTIADENOMATOUS POLYPS 3 YEARS REPEAT 2nose Social History Social History Type Response Smoking Status Never smoker Assessment and Plan No data available for this section
--- OUTSIDE RECORDS SUMMARY | 2017-02-11 22:54 | XMS REPORT | Referral Summary ---
Author Organization Unknown Address Unknown Phone Unavailable Care Team Providers Care Tax Adjuster Name Role Phone Avery Perez Primary Care Physician [phone] Encounter [facility] [id number] Date(s): 11/09/14 - 11/09/14 [facility] Danyell Shea, Otolaryngology [address] [place], [place] [address] Discharge Diagnosis: ACTINIC KERATOSIS Discharge Disposition: Home or Self Care Attending Physician: Carlos Lewis MD Admitting Physician: Carlos Lewis MD Vital Signs No data available for this section Problem List Condition Effective Dates Status Health Status Informant Allergies(Confirmed) Resolved Arthritis(Confirmed) Resolved Bronchitis(Confirmed Resolved ) Cataract(Confirmed) Resolved Chicken Resolved pox(Confirmed) Deviated nasal Resolved septum(Confirmed) Diabetes(Confirmed) Resolved Hearing Resolved loss(Confirmed) High blood Resolved pressure(Confirmed) Irritable bowel Resolved syndrome(Confirmed) Obesity(Confirmed) Active patient Pneumonia(Confirmed) Resolved Sinus Resolved infection(Confirmed) Allergies, Adverse Reactions, Alerts No Known Medication Allergies Medications Aspir 81 mg, Oral, Daily, 0 Refill(s) Start Date: 04/25/14 Status: Ordered atenolol 50 mg oral tablet See Instructions, TAKE 1 TABLET BY MOUTH TWICE A DAY., # 180 tabs, 2 Refill(s), eRx: [facility] [id number], TAKE 1 TABLET BY MOUTH TWICE A DAY. Special Instructions: TAKE 1 TABLET BY MOUTH TWICE A DAY. Start Date: 04/26/14 Status: Ordered Claritin 10 mg oral tablet 1 tabs, Oral, Daily, # 30 tabs, 0 Refill(s) Start Date: 04/25/14 Status: Ordered cyclobenzaprine 10 mg oral tablet See Instructions, 0.5-1 TABS ORAL Q8HR,PRN: NEEDED FOR SPASM, # 100 tabs, eRx : [facility] [id number], 0.5-1 TABS ORAL Q8HR,PRN: NEEDED FOR SPASM Special Instructions: 0.5-1 TABS ORAL Q8HR,PRN: NEEDED FOR SPASM Start Date: 08/08/14 Status: Ordered Glucometer strips (DME) DME Item patient tests 1 time daily for dx. 250.00 Uses [facility] next EZ Monitor, See Instructions, # 1 boxes, 3 Refill(s), Pharmacy: [facility] [id number], patient tests 1 time daily for dx. 250.00 Uses [facility] next EZ Monitor, Supply Special Instructions: patient tests 1 time daily for dx. 250.00 Uses [facility] EZ Monitor Start Date: 07/20/14 Status: Ordered hydrochlorothiazide 25 mg oral tablet See Instructions, TAKE 1 TABLET BY MOUTH EVERY DAY, # 90 tabs, eRx: [facility] [id number], TAKE 1 TABLET BY MOUTH EVERY DAY Special Instructions: TAKE 1 TABLET BY MOUTH EVERY DAY Start Date: 10/14/14 Status: Ordered ICaps with Lutein and Zeaxan tabs, Oral, Daily, 0 Refill(s) Start Date: 04/25/14 Status: Ordered metFORMIN 500 mg oral tablet See Instructions, 1 TABS ORAL DAILY, # 90 tabs, eRx: [facility] [id number] , 1 TABS ORAL DAILY Special Instructions: 1 TABS ORAL DAILY Start Date: 10/14/14 Status: Ordered Norvasc 10 mg oral tablet See Instructions, TAKE 1 TABLET BY MOUTH EVERY DAY., # 90 tabs, eRx: [facility] [id number], TAKE 1 TABLET BY MOUTH EVERY DAY. Special Instructions: TAKE 1 TABLET BY MOUTH EVERY DAY. Start Date: 10/14/14 Status: Ordered Plavix 75 mg tablet See Instructions, TAKE 1 TABLET BY MOUTH EVERY DAY., # 90 tabs, eRx: [facility] [id number], TAKE 1 TABLET BY MOUTH EVERY DAY. Special Instructions: TAKE 1 TABLET BY MOUTH EVERY DAY. Start Date: 10/14/14 Status: Ordered Plavix 75 mg tablet See Instructions, TAKE 1 TABLET BY MOUTH EVERY DAY., # 90 tabs, eRx: [facility] [id number], TAKE 1 TABLET BY MOUTH EVERY DAY. Special Instructions: TAKE 1 TABLET BY MOUTH EVERY DAY. Start Date: 07/13/14 Status: Ordered PriLOSEC 20 mg oral delayed release capsule See Instructions, TAKE 1 CAPSULE BY MOUTH EVERY DAY., # 90 caps, eRx: [facility] 95671, TAKE 1 CAPSULE BY MOUTH EVERY DAY. Special Instructions: TAKE 1 CAPSULE BY MOUTH EVERY DAY. Start Date: 10/14/14 Status: Ordered Tylenol Regular Strength 325 mg oral tablet tabs, Oral, q4hr, 0 Refill(s) Start Date: 04/25/14 Status: Ordered Zocor 20 mg oral tablet See Instructions, 1 TABS ORAL BEDTIME (ONCE A DAY), # 90 tabs, eRx: [facility] 12249, 1 TABS ORAL BEDTIME (ONCE A DAY) Special Instructions: 1 TABS ORAL BEDTIME (ONCE A DAY) Start Date: 08/30/14 Status: Ordered Results No data available for this section Immunizations Vaccine Date Refusal Reason influenza virus vaccine, live 06/29/13 influenza virus vaccine, live 06/24/12 tetanus-diphth toxoids (Td) adult/adol 12/16/02 zoster vaccine live 05/09/14 Procedures Procedure Date Related Diagnosis Body Site Colonoscopy 2010 Plastic surgery1 1nose Social History Social History Type Response Smoking Status Never smoker Assessment and Plan Extracted from: Title: Office Visit Note Author: Carlos Lewis MD Date: 11/09/14 Assessment/Plan 1.ACTINIC KERATOSIS There does not appear to be any significant change since previously seen. There is some left nasal rim crease and right lateral nasal dorsum were both examined under microscopy. She will report back for follow-up examination in 2 months. Ordered: Office Visit Level 3 Est 26426
--- OUTSIDE RECORDS SUMMARY | 2017-02-11 22:54 | XMS REPORT | Continuity of Care Document ---
Author Author [facility] Organization [facility] Address Unknown Phone Unavailable Allergies Medications Problems Procedures Results Encounters ACCT No. Visit Date/Time Discharge Status Pt. Type Provider Facility Loc./Unit Complaint [id number] 11/04/2013 15:14:00 11/04/2013 23 :59:59 CLS Outpatient
--- OUTSIDE RECORDS SUMMARY | 2017-02-11 22:54 | XMS REPORT | Referral Summary ---
Author Author [facility] Organization [facility] Address Unknown Phone Unavailable Care Team Providers Care Primer Charging Tool Setter Name Role Phone Avery Perez Primary Care Physician [phone] Encounter VC Date(s): 07/03/16 - 07/03/16 [facility] [address] [place], [place] [address] Discharge Diagnosis: Trigger finger Discharge Disposition: 01-Home or Self Care Attending Physician: Markus Hernandez MD Admitting Physician: Markus Hernandez MD Referring Physician: Becca Perez Vital Signs No data available for this [...] Daily, # 90 tabs, 3 Refill(s), Pharmacy: [facility] [id number], 1 tabs Oral Daily Start Date: 01/17/16 [...] MOUTH EVERY DAY, # 90 tabs, eRx: [facility] [id number], TAKE 1 TABLET BY MOUTH EVERY DAY Start Date: 04/17/16 Status: Ordered GetQuik NEXT TEST STRIPS 100'S See Instructions, USE TO TEST BLOOD SUGARS ONCE DAILY, # 100 strip, 2 Refill(s) , eRx: [facility] [id number], USE TO TEST BLOOD SUGARS ONCE DAILY Start Date: 05/16/15 Status: Ordered cyclobenzaprine 10 mg oral tablet See Instructions, 0.5-1 TABS ORAL Q8HR,PRN: NEEDED FOR SPASM, # 100 tabs, eRx : [facility] [id number], 0.5-1 TABS ORAL Q8HR,PRN: NEEDED FOR SPASM Start Date: 10/24/15 Status: Ordered Glucometer strips (DME) DME Item patient tests 1 time daily for dx. 250.00 Uses Andrew [employer] Cauldron next EZ Monitor, See Instructions, # 1 boxes, 3 Refill(s), Pharmacy: [facility] [id number], patient tests 1 time daily for dx. 250.00 Uses Positron Contour next EZ Monitor, Supply Start Date: 07/20/14 Status: Ordered hydrochlorothiazide 25 mg oral tablet See Instructions, TAKE 1 TABLET BY MOUTH DAILY, # 45 tabs, eRx: [facility] [id number], TAKE 1 TABLET BY MOUTH DAILY Start Date: 06/06/16 Status: Ordered ICaps with Lutein and Zeaxan tabs, Oral, Daily, 0 Refill(s) Start Date: 04/25/14 Status: Ordered lutein 10 mg, Oral, Daily, 0 Refill(s) Start Date: 02/09/16 Status: Ordered metFORMIN 500 mg oral tablet See Instructions, TAKE 1 TABLET BY MOUTH DAILY, # 90 tabs, [facility], TAKE 1 TABLET BY MOUTH DAILY Start Date: 06/07/16 Status: Ordered omeprazole 40 mg oral delayed release capsule 40 mg 1 caps, Oral, Daily, # 90 caps, 0 Refill(s), [facility], 1 caps Oral Daily Start Date: 05/29/16 Status: Ordered pravastatin 40 mg oral tablet 40 mg 1 tabs, Oral, Daily, # 90 tabs, 5 Refill(s), [facility] 98[facility], 1 tabs Oral Daily Start Date: 09/27/15 Status: Ordered Tylenol Regular Strength 325 mg oral tablet tabs, Oral, q4hr, 0 Refill(s) Start Date: 04/25/14 Status: Ordered Results No data available for this section Immunizations Vaccine Date Refusal Reason tetanus/diphth/pertuss (Tdap) adult/adol 05/27/13 influenza virus vaccine, inactivated 05/29/16 influenza virus vaccine, inactivated1 07/05/15 influenza virus vaccine, live 06/29/13 influenza virus vaccine, live 06/24/12 pneumococcal 13-valent conjugate vaccine2 07/05/15 tetanus-diphth toxoids (Td) adult/adol 12/16/02 zoster vaccine live 05/09/14 [facility] Procedures Procedure Date Related Diagnosis Body Site Injection(s); single tendon sheath, or 07/03/16 ligament, aponeurosis (eg, plantar "fascia") Injection(s); single tendon sheath, or 07/03/16 ligament, aponeurosis (eg, plantar "fascia") Laparoscopic cholecystectomy with 02/16/15 cholangiography Colonoscopies1 05/11/10 Colonoscopy 2010 ECTOPIC 1969 Appendectomy Plastic surgery2 plastic surgery on nose 1MULTIADENOMATOUS POLYPS 3 YEARS REPEAT 2nose Social History Social History Type Response Smoking Status Never smoker Assessment and Plan Extracted from: Title: Office Visit Note Author: Markus Hernandez MD Date: 07/03/16 Assessment/Plan The patient has bilateral trigger fingers. We will inject both today. I did explain to her that these are less effective in diabetics. I explained to her thatallen cantu have some increase in her blood sugar. She is a non -insulin-dependent diabetic and I explained to the patient that she needs to watch her blood sugar and taken carefully to assure this doesn't govery high and would necessitate the use of insulin. If this occurs she needs to give us a call. The patient will have injections on bothdigits and thenreturn in 4 weeks for follow-up. She will return to see hernurse practitioner in 4 weeks to see if another injection may be necessary. Injection:20 mg Kenalog Technique: Chlorhexidine prep of the palm at the base of theright long and left ring digit was performed. 1 percent lidocaine with epinephrine was injected as a field block. This was allowed to sit for 2 minutes. Injection of 40 mg of Kenalog into the A1 diogenes at a 45 angle was performed to theright long and left ring. Full range of motion after the injection. No signs of complication. Band-Aid placed.
--- OUTSIDE RECORDS SUMMARY | 2017-02-11 22:55 | XMS REPORT | Referral Summary ---
Author Author [facility] Organization [facility] Address Unknown Phone Unavailable Care Team Providers Care Crate Opener Name Role Phone Avery Perez Primary Care Physician [phone] Encounter VC Date(s): 08/06/16 - 08/06/16 [facility] [address] [place], [place] [address] Discharge Diagnosis: Left trigger finger Discharge Disposition: 01-Home or Self Care Attending Physician: Miranda Gilbert APRN Admitting Physician: Miranda Gilbert APRN Vital Signs Most recent to 1 oldest [Reference Range]: Respiratory Rate 20 br/min [14-20 br/min] (08/06/16 9:20 AM) Problem List Condition Effective Dates Status [...] Daily, # 90 tabs, 3 Refill(s), Pharmacy: [facility] [id number], 1 tabs Oral Daily Start Date: 01/17/16 [...] MOUTH EVERY DAY, # 90 tabs, eRx: [facility] [id number], TAKE 1 TABLET BY MOUTH EVERY DAY Start Date: 07/22/16 Status: Ordered Shoopi NEXT TEST STRIPS 100'S See Instructions, USE TO TEST BLOOD SUGARS ONCE DAILY, # 100 strip, 2 Refill(s) , eRx: [facility] [id number], USE TO TEST BLOOD SUGARS ONCE DAILY Start Date: 05/16/15 Status: Ordered cyclobenzaprine 10 mg oral tablet See Instructions, 0.5-1 TABS ORAL Q8HR,PRN: NEEDED FOR SPASM, # 100 tabs, eRx : [facility] [id number], 0.5-1 TABS ORAL Q8HR,PRN: NEEDED FOR SPASM Start Date: 10/24/15 Status: Ordered Glucometer strips (DME) DME Item patient tests 1 time daily for dx. 250.00 Uses [employer] next EZ Monitor, See Instructions, # 1 boxes, 3 Refill(s), Pharmacy: [facility] [id number], patient tests 1 time daily for dx. 250.00 Uses [employer] next EZ Monitor, Supply Start Date: 07/20/14 Status: Ordered hydroCHLOROthiazide 25 mg oral tablet See Instructions, TAKE 1 TABLET BY MOUTH DAILY, # 45 tabs, eRx: [facility] [id number], TAKE 1 TABLET BY MOUTH DAILY Start Date: 08/02/16 Status: Ordered hydrochlorothiazide 25 mg oral tablet See Instructions, TAKE 1 TABLET BY MOUTH DAILY, # 45 tabs, eRx: [facility] 79724, TAKE 1 TABLET BY MOUTH DAILY Start Date: 06/06/16 Status: Ordered ICaps with Lutein and Zeaxan tabs, Oral, Daily, 0 Refill(s) Start Date: 04/25/14 Status: Ordered lutein 10 mg, Oral, Daily, 0 Refill(s) Start Date: 02/09/16 Status: Ordered metFORMIN 500 mg oral tablet See Instructions, TAKE 1 TABLET BY MOUTH DAILY, # 90 tabs, eRx: [facility] 79016, TAKE 1 TABLET BY MOUTH DAILY Start Date: 06/07/16 Status: Ordered omeprazole 40 mg oral delayed release capsule 40 mg 1 caps, Oral, Daily, # 90 caps, 0 Refill(s), Pharmacy: [facility] 61484, 1 caps Oral Daily Start Date: 05/29/16 Status: Ordered pravastatin 40 mg oral tablet 40 mg 1 tabs, Oral, Daily, # 90 tabs, 5 Refill(s), Pharmacy: [facility] 79887, 1 tabs Oral Daily Start Date: 09/27/15 [...] live 05/09/14 1[facility] History[facility] Procedures Procedure Date Related Diagnosis Body Site Laparoscopic cholecystectomy with 02/16/15 cholangiography Colonoscopies1 05/11/10 Colonoscopy 2010 ECTOPIC 1969 Appendectomy Plastic surgery2 plastic surgery on nose 1MULTIADENOMATOUS POLYPS 3 YEARS REPEAT 2nose Social History Social History Type Response Smoking Status Never smoker Assessment and Plan Extracted from: Title: Office Visit Note Author: Gilbert Miranda M BLAST FURNACE BLOWER Date: 08/06/16 Assessment/Plan 1.Left trigger finger Improvement in triggering to both hands.Briefly discussedsurgical options vs repeat injections. Patient would prefer to continue to monitor at this time. She will let us know ifneeding further intervention. My card was given to patient and questions were answered. Ordered: Office Visit Level 2 Est 78138 Extracted from: Title: Ambulatory Patient Education Author: Miranda Gilbert BLAST FURNACE BLOWER Date: Musculoskeletal Trigger Finger Trigger finger (digital tendinitis and stenosing tenosynovitis) is a common disorder that causes an often painful catching of the fingers or thumb. It occurs as a clicking, snapping, or locking of a finger in the palm of the hand. This is caused by a problem with the tendons that flex or bend the fingers sliding smoothly through their sheaths. The condition may occur in any finger or a couple fingers at the same time. The finger may lock with the finger curled or suddenly straighten out with a snap. This is more common in patients with rheumatoid arthritis and diabetes. Left untreated, the condition may get worse to the point where the finger becomes locked in flexion, like making a fist, or less commonly locked with the finger straightened out. CAUSES Inflammation and scarring that lead to swelling around the tendon sheath. Repeated or forceful movements. Rheumatoid arthritis, an autoimmune disease that affects joints. Gout. Diabetes mellitus. SIGNS AND SYMPTOMS Soreness and swelling of your finger. A painful clicking or snapping as you bend and straighten your finger. DIAGNOSIS Your health care provider will do a physical exam of your finger to diagnose trigger finger. TREATMENT Splinting for 68 weeks may be helpful. Nonsteroidal anti-inflammatory medicines (NSAIDs) can help to relieve the pain and inflammation. Cortisone injections, along with splinting, may speed up recovery. Several injections may be required. Cortisone may give relief after one injection. Surgery is another treatment that may be used if conservative treatments do not work. Surgery can be minor, without incisions (a cut does not have to be made), and can be done with a needle through the skin. Other surgical choices involve an open procedure in which the surgeon opens the hand through a small incision and cuts the diogenes so the tendon can again slide smoothly. Your hand will still work fine. HOME CARE INSTRUCTIONS Apply ice to the injured area, twice per day: Put ice in a plastic bag. Place a towel between your skin and the bag. Leave the ice on for 20 minutes, 34 times a day. Rest your hand often. MAKE SURE YOU: Understand these instructions. Will watch your condition. Will get help right away if you are not doing well or get worse. This information is not intended to replace advice given to you by your health care provider. Make sure you discuss any questions you have with your health care provider. Document Released: 06/28/2005 Document Revised: 05/11/2014 Document Reviewed: Elsevier Interactive Patient Education 2016 Elsevier Inc. No follow up information was provided.
--- OUTSIDE RECORDS SUMMARY | 2017-02-11 22:55 | XMS REPORT | Referral Summary ---
Author Author [facility] [place] Organization [facility] [place] Address Unknown Phone Unavailable Care Team Providers Care Ear Flap Binder Name Role Phone Avery Perez Primary Care Physician [phone] Encounter VC Date(s): 02/04/15 - 02/04/15 [facility] [address] [place] [address] [place] [address]- Discharge Disposition: 01-Home or Self Care Attending [...] TWICE A DAY., # 180 tabs, eRx: [facility] [id number], TAKE 1 TABLET BY MOUTH TWICE A DAY. Start Date: 02/27/15 Status: Ordered Claritin 10 mg oral tablet 1 tabs, Oral, Daily, # 30 tabs, 0 Refill(s) Start Date: 04/25/14 Status: Ordered clopidogrel 75 mg oral tablet 1 tabs, Oral, Daily, # 90 tabs, 1 Refill(s), Pharmacy: [facility] 32144, 1 tabs Oral Daily Start Date: 01/23/15 Status: Ordered [employer] NEXT TEST STRIPS 100'S See Instructions, USE TO TEST BLOOD SUGARS ONCE DAILY, # 100 strip, 2 Refill(s) , eRx: [facility] [id number], USE TO TEST BLOOD SUGARS ONCE DAILY Start Date: 05/16/15 Status: Ordered cyclobenzaprine 10 mg oral tablet See Instructions, 0.5-1 TABS ORAL Q8HR,PRN: NEEDED FOR SPASM, # 100 tabs, eRx : [facility] 91874, 0.5-1 TABS ORAL Q8HR,PRN: NEEDED FOR SPASM Start Date: 08/08/14 Status: Ordered Glucometer strips (DME) DME Item patient tests 1 time daily for dx. 250.00 Uses Andrwe Contour next EZ Monitor, See Instructions, # 1 boxes, 3 Refill(s), Pharmacy: [facility] 73841, patient tests 1 time daily for dx. 250.00 Uses Channel M next EZ Monitor, Supply Start Date: 07/20/14 Status: Ordered ICaps with Lutein and Zeaxan tabs, Oral, Daily, 0 Refill(s) Start Date: 04/25/14 Status: Ordered metFORMIN 500 mg oral tablet See Instructions, 1 TABS ORAL DAILY, # 90 tabs, eRx: [facility] 29577 , 1 TABS ORAL DAILY Start Date: 05/15/15 Status: Ordered Norvasc 10 mg oral tablet See Instructions, TAKE 1 TABLET BY MOUTH EVERY DAY., # 90 tabs, eRx: [facility] 42191, TAKE 1 TABLET BY MOUTH EVERY DAY. Start Date: 05/15/15 Status: Ordered Plavix 75 mg tablet See Instructions, TAKE 1 TABLET BY MOUTH EVERY DAY., # 90 tabs, eRx: [facility] 16189, TAKE 1 TABLET BY MOUTH EVERY DAY. Start Date: 01/23/15 Status: Ordered PriLOSEC 20 mg oral delayed release capsule See Instructions, TAKE 1 CAPSULE BY MOUTH EVERY DAY., # 90 caps, eRx: [facility] 35653, TAKE 1 CAPSULE BY MOUTH EVERY DAY. Start Date: 05/15/15 Status: Ordered Tylenol Regular Strength 325 mg oral tablet tabs, Oral, q4hr, 0 Refill(s) Start Date: 04/25/14 Status: Ordered Zocor 20 mg oral tablet See Instructions, 1 TABS ORAL BEDTIME (ONCE A DAY), # 90 tabs, 1 Refill(s), eRx : [facility] 66587, 1 TABS ORAL BEDTIME (ONCE A DAY) [...]
--- OUTSIDE RECORDS SUMMARY | 2017-02-11 22:55 | XMS REPORT | Referral Summary ---
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 Name Role Phone Avery Perez Primary Care Physician [phone] Encounter VC Date(s): 01/17/16 - 01/17/16 [facility] [place] [address] [place] [address] [place] [address]- Discharge Diagnosis: Diabetes Discharge Diagnosis: Essential hypertension Discharge Diagnosis: Hypercholesteremia Discharge Disposition: 01-Home or Self Care Attending Physician: Marcus Linda MD Admitting Physician: Marcus Linda MD Referring Physician: Jori Perez MD Vital Signs Most recent to 1 oldest [Reference Range]: Peripheral Pulse 56 bpm Rate [60-100 bpm] *LOW* (01/17/16 11:14 AM) Blood Pressure 106/60 mmHg [90-140/60-90 mmHg] (01/17/16 11:14 AM) Problem List Condition Effective Dates Status [...] Daily, # 90 tabs, 3 Refill(s), Pharmacy: [facility] 59405, 1 tabs Oral Daily Start Date: 01/17/16 Status: Ordered Aspir 81 mg, Oral, Daily, 0 Refill(s) Start Date: 04/25/14 Status: Ordered carvedilol 25 mg oral tablet 25 mg 1 tabs, Oral, BID, # 180 tabs, 4 Refill(s), Pharmacy: [facility] 19993, 1 tabs Oral BID Start Date: 09/27/15 Status: Ordered Claritin 10 mg oral tablet 1 tabs, Oral, Daily, # 30 tabs, 0 Refill(s) Start Date: 04/25/14 Status: Ordered clopidogrel 75 mg oral tablet See Instructions, TAKE 1 TABLET BY MOUTH EVERY DAY, # 90 tabs, 0 Refill(s), Pharmacy: [facility] 12931, TAKE 1 TABLET BY MOUTH EVERY DAY Start Date: 01/15/16 Status: Ordered CONTOUR NEXT TEST STRIPS 100'S See Instructions, USE TO TEST BLOOD SUGARS ONCE DAILY, # 100 strip, eRx: [facility] , USE TO TEST BLOOD SUGARS ONCE DAILY Start Date: 12/07/15 Status: Ordered CONTOUR NEXT TEST STRIPS 100'S See Instructions, USE TO TEST BLOOD SUGARS ONCE DAILY, # 100 strip, 2 Refill(s) , eRx: [facility] 28051, USE TO TEST BLOOD SUGARS ONCE DAILY Start Date: 05/16/15 Status: Ordered cyclobenzaprine 10 mg oral tablet See Instructions, 0.5-1 TABS ORAL Q8HR,PRN: NEEDED FOR SPASM, # 100 tabs, eRx : [facility] 83463, 0.5-1 TABS ORAL Q8HR,PRN: NEEDED FOR SPASM Start Date: 10/24/15 Status: Ordered Glucometer strips (DME) DME Item patient tests 1 time daily for dx. 250.00 Uses Andrew Contour next EZ Monitor, See Instructions, # 1 boxes, 3 Refill(s), Pharmacy: [facility] 32537, patient tests 1 time daily for dx. 250.00 Uses Andrew Contour next EZ Monitor, Supply Start Date: 07/20/14 Status: Ordered hydrochlorothiazide 25 mg oral tablet See Instructions, TAKE 1 TABLET BY MOUTH DAILY, # 45 tabs, eRx: [facility] 63041, TAKE 1 TABLET BY MOUTH DAILY Start Date: 01/01/16 Status: Ordered ICaps with Lutein and Zeaxan tabs, Oral, Daily, 0 Refill(s) Start Date: 04/25/14 Status: Ordered metFORMIN 500 mg oral tablet See Instructions, 1 TABS ORAL DAILY, # 90 tabs, 1 Refill(s), eRx: [facility] 55755, 1 TABS ORAL DAILY Start Date: 08/21/15 Status: Ordered pravastatin 40 mg oral tablet 40 mg 1 tabs, Oral, Daily, # 90 tabs, 5 Refill(s), Pharmacy: [facility] 77085, 1 tabs Oral Daily Start Date: 09/27/15 Status: Ordered PriLOSEC 20 mg oral delayed release capsule See Instructions, TAKE 1 CAPSULE BY MOUTH EVERY DAY., # 90 caps, 1 Refill(s), eRx: [facility] 73186, TAKE 1 CAPSULE BY MOUTH EVERY DAY. [...] Extracted from: Title: Office Visit Note Author: Marcus Linda MD Date: 01/17/16 Assessment/Plan 1.Hypercholesteremia Ordered: Lipid Panel Return to Clinic 2.Essential hypertension Ordered: Lipid Panel Return to Clinic 3.Diabetes Discussion: Overall, she appears to be doing very well. I think that her symptoms of indigestion may be related to herFosamax. We advised her to follow the instructions very closely. From a cardiac point of view she appears to be doing well and we suggested a follow-up visit in 1 year. Should she have difficulty we will be glad to see her any time. Ordered: Lipid Panel Return to Clinic Orders: amLODIPine, 5 mg 1 tabs, Oral, Daily, # 90 tabs, 3 Refill(s), [facility], 1 tabs Oral Daily Referrals to Other Providers Referred by: Marcus Linda MD
--- OUTSIDE RECORDS SUMMARY | 2017-02-11 22:55 | XMS REPORT | Continuity of Care Document ---
Author Author [facility] Organization [facility] Address Unknown Phone Unavailable Support Name Relationship Address Phone FARIDEH PATEL MD Caregiver [address] [place] [address] [place] [address] Unavailable RAVIN GUTIERREZ DPM Caregiver [address] [place] [address] Unavailable [place] [address] Insurance Providers Guarantor Margoth Adames Address [address] [place] [address] Email DENIED/NO TO PT PORT Payer Medicare Policy Number [id number] Subscriber's Name Margoth Adames Relationship 18 Self Payer [facility] Policy Number [id number] Subscriber's Name Margoth Adames Relationship 18 Self Group Number [id number] Advance Directives Directive Response Recorded Date/Time Resuscitation Documents on File No 02/23/16 7:23am DPOA for Healthcare Only No 02/23/16 7:23am Problems Active Problems Medical Problem Onset Date Status Acute cholecystitis Unknown Acute Fatigue Unknown Acute Nausea Unknown Acute PVCs (premature ventricular contractions) Unknown Acute Palpitations Unknown Acute Symptomatic cholelithiasis Unknown Acute Viral gastroenteritis Unknown Acute Medications Current Home Medications Medication Dose Units Route Directions Days Qty Instructions Start Date Acetaminophen (Tylenol) 325 Mg Tablet 1 Tab Oral Daily as needed for Pain 02/15/15 Amlodipine Besylate (Norvasc) 10 Mg Tablet 10 Mg Oral Daily 05/11 Aspirin (Aspir 81) 81 Mg Tablet. 81 Mg Oral Daily 05/11/10 Atenolol 50 Mg Tablet 50 Mg Oral Daily 05/11/10 B2/Vit A,C & E/Lut/Zeaxanth/Mn (Icaps Tablet) 1 Each Tablet.er 1 Tab Oral Daily 02/15/15 Carvedilol 12.5 Mg Tablet 1 Tab Oral [...] Mg Capsule.dr 20 Mg Oral Daily 12/19/10 Simvastatin 20 Mg Tablet 20 Mg Oral [...] Problem Response Recorded Date/Time Onset Date Status Chewing Tobacco Status No 02/21/2016 3:00pm Not Applicable Not Applicable Hx Substance Use No 02/21/2016 3:00pm Not Applicable Not Applicable Hx Alcohol Use Y GLASS OF WINE OCCASIONALLY 02/21/2016 3:00pm Not Applicable Not Applicable Has the pt used tobacco in the last 12 months No 02/21/2016 3:00pm Not Applicable Not Applicable Tobacco Usage none 02/04/2015 7:20pm Not Applicable Not Applicable Query Response Start Date Stop Date Smoking Status Never smoker Hospital Discharge Instructions Instructions: Care Instructions: Reason for Hospitalization: HAMMER TOE REPAIR I was in the hospital because (patient own words): HAMMER TOE RIGHT FOOT Follow Up Appointments: 10 days Pending Lab / Results: No Pending Lab Patient Instructions: see chart Wound/Incision Care: see chart Durable Medical Equipment: surgical shoe Notify Physician If: see chart Condition at time of discharge: Good Plan of Care Discharge Date 02/23/16 10:18am Prescriptions See Medication Section Functional Status Query Response Date Recorded Ability to complete ADL's impeded by Impaired Mobility February 23, 2016 7:23am Allergies, Adverse Reactions, Alerts Allergen Type Severity Reaction Status Last Updated No Known Drug Allergies Allergy Unknown Active 07/19/15 Immunizations Query Response on File Recorded Date/Time Hx Influenza Vaccination Y FALL 201402/21/16 3:00pm Hx Pneumococcal Vaccination Y WITHIN PAST 5 YEARS 02/21/16 3:00pm Hx Influenza Vaccination Y FALL 201402/21/16 3:00pm Influenza Vaccine Hx 201407/19/15 6:46pm Tetanus Diptheria Vaccine History UNKNOWN 07/19/15 6:46pm Vital Signs Acute Vital Signs Vital Response Date/Time Temperature (Fahrenheit) 96.8 deg F (96.8 - 99.1) 02/23/2016 9:18am Temperature (Calculated Celsius) 36.89543 degrees C (36.0 - 37.3) 02/23/2016 9:18am Temperature Source Temporal 02/23/2016 9:18am Pulse Rate (adult) 50 bpm (60 - 100) 02/23/2016 10:10am Respiratory Rate 16 breaths/min (10 - 20) 02/23/2016 10:10am O2 Sat by Pulse Oximetry 97 % (90 - 100) 02/23/2016 10:10am Oxygen Delivery Method Room Air 02/23/2016 10:10am Blood Pressure 136/63 mm Hg 02/23/2016 10:10am Blood Pressure Source Automatic Cuff 02/23/2016 10:10am Height (Feet) 4 feet 02/23/2016 7:24am Height (Inches) 11.00 inches 02/23/2016 7:24am Weight (Kilograms) 70.300 kg 02/23/2016 7:24am Body Mass Index (BMI) 31.3 02/23/2016 7:24am [...] Potassium Level 3.4 MEQ/L L 3.6-5 02/23/2016 7:am 02/23/2016 7:45am Chloride Level 106 MEQ/L 98-107 02/23/2016 7:am 02/23/2016 7:45am Carbon Dioxide Level 27 MEQ/L 22-30 02/23/2016 7:am 02/23/2016 7: 45am Anion Gap 9 MEQ/L 5-15 02/23/2016 7:am 02/23/2016 7:45am Blood Urea Nitrogen 22.0 MG/DL H 7-17 02/23/2016 7:am 02/23/2016 7: 45am Creatinine 0.6 MG/DL L 0.7-1.2 02/23/2016 7:am 02/23/2016 7:45am BUN/Creatinine Ratio 37 RATIO H 602/23/2016 7:am 02/23/2016 7: 45am Glomerular Filtration Rate Calc 97 02/23/2016 7:am 02/23/2016 7: 45am Glucose Level 124 MG/DL H 65-110 02/23/2016 7:am 02/23/2016 7:45am Calculated Osmolality 277 MOSM/KG 261-280 02/23/2016 7:am 02/23/2016 7:45am Calcium Level 9.0 MG/DL 8.4-10.2 02/23/2016 7:am 02/23/2016 7:45am Glucometer 122 mg/dL H 65-110 02/23/2016 7:52am 02/23/2016 8:00am Procedures Procedure Status Date Provider(s) Correction of hammer toe of right foot Completed 02/23/16 RAVIN GUTIERREZ DPM Encounters Encounter Location Arrival/Admit Date Discharge/Depart Date Attending Provider Departed [facility] 02/23/16 6:54am 02/23/16 10 :18am RAVIN GUTIERREZ DPM
--- OUTSIDE RECORDS SUMMARY | 2017-02-11 22:55 | XMS REPORT | Referral Summary ---
Author Author [facility], Family Medicine Organization [facility] Address Unknown Phone Unavailable Care Team Providers Care Emergency Room Rn Name Role Phone Avery Perez Primary Care Physician [phone] Encounter VC Date(s): 02/28/15 - 02/28/15 [facility] [address] [place] [address]- Discharge Disposition: 01-Home or Self Care Attending Physician: Jori Perez MD Admitting Physician: Jori Perez MD Vital Signs Most recent to 1 oldest [Reference Range]: Blood Pressure 130/70 mmHg [90-140/60-90 mmHg] (02/28/15 11:12 AM) Problem List Condition Effective Dates Status [...] DAY., # 180 tabs, 1 Refill(s), eRx: [facility] [id number], TAKE 1 TABLET BY MOUTH TWICE A DAY. Start Date: 08/21/15 Status: Ordered Claritin 10 mg oral tablet 1 tabs, Oral, Daily, # 30 tabs, 0 Refill(s) Start Date: 04/25/14 Status: Ordered clopidogrel 75 mg oral tablet 1 tabs, Oral, Daily, # 90 tabs, 1 Refill(s), Pharmacy: [facility] [id number], 1 tabs Oral Daily Start Date: 01/23/15 Status: Ordered Contatta NEXT TEST STRIPS 100'S See Instructions, USE TO TEST BLOOD SUGARS ONCE DAILY, # 100 strip, 2 Refill(s) , eRx: [facility] [id number], USE TO TEST BLOOD SUGARS ONCE DAILY Start Date: 05/16/15 Status: Ordered cyclobenzaprine 10 mg oral tablet See Instructions, 0.5-1 TABS ORAL Q8HR,PRN: NEEDED FOR SPASM, # 100 tabs, eRx : [facility] [id number], 0.5-1 TABS ORAL Q8HR,PRN: NEEDED FOR SPASM Start Date: 08/08/14 Status: Ordered Glucometer strips (DME) DME Item patient tests 1 time daily for dx. 250.00 Uses [employer] next EZ Monitor, See Instructions, # 1 boxes, 3 Refill(s), Pharmacy: [facility] [id number], patient tests 1 time daily for dx. [...] DAILY, # 90 tabs, 1 Refill(s), eRx: [facility] [id number], 1 TABS ORAL DAILY Start Date: 08/21/15 Status: Ordered Norvasc 10 mg oral tablet See Instructions, TAKE 1 TABLET BY MOUTH EVERY DAY., # 90 tabs, 1 Refill(s), eRx : [facility] [id number], TAKE 1 TABLET BY MOUTH EVERY DAY. Start Date: 08/21/15 Status: Ordered Plavix 75 mg tablet See Instructions, TAKE 1 TABLET BY MOUTH EVERY DAY., # 90 tabs, eRx: [facility] [id number], TAKE 1 TABLET BY MOUTH EVERY DAY. Start Date: 01/23/15 Status: Ordered PriLOSEC 20 mg oral delayed release capsule See Instructions, TAKE 1 CAPSULE BY MOUTH EVERY DAY., # 90 caps, 1 Refill(s), eRx: [facility] [id number], TAKE 1 CAPSULE BY MOUTH EVERY DAY. [...] Patient Education Author: Jori Perez MD Date: 02/28/15 Family Medicine Arterial Hypertension Arterial hypertension (high blood pressure ) is a condition of elevated pressure in your blood vessels. Hypertension over a long period of time is a risk factor for strokes, heart attacks, and heart failure. It is also the leading cause of kidney (renal ) failure. CAUSES In Adults -- Over 90% of all hypertension has no known cause. This is called essential or primary hypertension. In the other 10% of people with hypertension, the increase in blood pressure is caused by another disorder. This is called secondary hypertension . Important causes of secondary hypertension are: Heavy alcohol use. Obstructive sleep apnea. Hyperaldosterosim (Conn's syndrome). Steroid use. Chronic kidney failure. Hyperparathyroidism. Medications. Renal artery stenosis. Pheochromocytoma. Liberal's disease. Coarctation of the aorta. Scleroderma renal crisis. Licorice (in excessive amounts). Drugs (cocaine, methamphetamine). Your caregiver can explain any items above that apply to you. In Children -- Secondary hypertension is more common and should always be considered. -- Few women of childbearing age have high blood pressure. However, up to 10% of them develop hypertension of . Generally, this will not harm the woman. It may be a sign of 3 complications of : preeclampsia, HELLP syndrome, and eclampsia. Follow up and control with medication is necessary. SYMPTOMS This condition normally does not produce any noticeable symptoms. It is usually found during a routine exam. Malignant hypertension is a late problem of high blood pressure. It may have the following symptoms: Headaches. Blurred vision. End-organ damage (this means your kidneys, heart, lungs, and other organs are being damaged). Stressful situations can increase the blood pressure. If a person with normal blood pressure has their blood pressure go up while being seen by their caregiver, this is often termed "white coat hypertension." Its importance is not known. It may be related with eventually developing hypertension or complications of hypertension. Hypertension is often confused with mental tension, stress, and anxiety. DIAGNOSIS The diagnosis is made by 3 separate blood pressure measurements. They are taken at least 1 week apart from each other. If there is organ damage from hypertension, the diagnosis may be made without repeat measurements. Hypertension is usually identified by having blood pressure readings: Above 140/90 mmHg measured in both arms, at 3 separate times, over a couple weeks. Over 130/80 mmHg should be considered a risk factor and may require treatment in patients with diabetes. Blood pressure readings over 120/80 mmHg are called "pre-hypertension" even in non-diabetic patients. To get a true blood pressure measurement, use the following guidelines. Be aware of the factors that can alter blood pressure readings. Take measurements at least 1 hour after caffeine. Take measurements 30 minutes after smoking and without any stress. This is another reason to quit smoking it raises your blood pressure. Use a proper cuff size. Ask your caregiver if you are not sure about your cuff size. Most home blood pressure cuffs are automatic. They will measure systolic and diastolic pressures. The systolic pressure is the pressure reading at the start of sounds. Diastolic pressure is the pressure at which the sounds disappear. If you are elderly, measure pressures in multiple postures. Try sitting, lying or standing. Sit at rest for a minimum of 5 minutes before taking measurements. You should not be on any medications like decongestants. These are found in many cold medications. Record your blood pressure readings and review them with your caregiver. If you have hypertension: Your caregiver may do tests to be sure you do not have secondary hypertension (see "causes" above). Your caregiver may also look for signs of metabolic syndrome. This is also called Syndrome X or Insulin Resistance Syndrome. You may have this syndrome if you have type 2 diabetes, abdominal obesity, and abnormal blood lipids in addition to hypertension. Your caregiver will take your medical and family history and perform a physical exam. Diagnostic tests may include blood tests (for glucose, cholesterol, potassium, and kidney function), a urinalysis, or an EKG. Other tests may also be necessary depending on your condition. PREVENTION There are important lifestyle issues that you can adopt to reduce your chance of developing hypertension: Maintain a normal weight. Limit the amount of salt (sodium ) in your diet. Exercise often. Limit alcohol intake. Get enough potassium in your diet. Discuss specific advice with your caregiver. Follow a DASH diet (dietary approaches to stop hypertension). This diet is rich in fruits, vegetables, and low-fat dairy products, and avoids certain fats. PROGNOSIS Essential hypertension cannot be cured. Lifestyle changes and medical treatment can lower blood pressure and reduce complications. The prognosis of secondary hypertension depends on the underlying cause. Many people whose hypertension is controlled with medicine or lifestyle changes can live a normal, healthy life. RISKS AND COMPLICATIONS While high blood pressure alone is not an illness, it often requires treatment due to its short- and long-term effects on many organs. Hypertension increases your risk for: CVAs or strokes (cerebrovascular accident ). Heart failure due to chronically high blood pressure (hypertensive cardiomyopathy ). Heart attack (myocardial infarction ). Damage to the retina (hypertensive retinopathy ). Kidney failure (hypertensive nephropathy ). Your caregiver can explain list items above that apply to you. Treatment of hypertension can significantly reduce the risk of complications. TREATMENT For overweight patients, weight loss and regular exercise are recommended. Physical fitness lowers blood pressure. Mild hypertension is usually treated with diet and exercise. A diet rich in fruits and vegetables, fat-free dairy products, and foods low in fat and salt (sodium ) can help lower blood pressure. Decreasing salt intake decreases blood pressure in a 1/3 of people. Stop smoking if you are a smoker. The steps above are highly effective in reducing blood pressure. While these actions are easy to suggest, they are difficult to achieve. Most patients with moderate or severe hypertension end up requiring medications to bring their blood pressure down to a normal level. There are several classes of medications for treatment. Blood pressure pills (antihypertensives ) will lower blood pressure by their different actions. Lowering the blood pressure by 10 mmHg may decrease the risk of complications by as much as 25%. The goal of treatment is effective blood pressure control. This will reduce your risk for complications. Your caregiver will help you determine the best treatment for you according to your lifestyle. What is excellent treatment for one person, may not be for you. HOME CARE INSTRUCTIONS Do not smoke. Follow the lifestyle changes outlined in the "Prevention" section. If you are on medications, follow the directions carefully. Blood pressure medications must be taken as prescribed. Skipping doses reduces their benefit. It also puts you at risk for problems. Follow up with your caregiver, as directed. If you are asked to monitor your blood pressure at home, follow the guidelines in the "Diagnosis" section above. SEEK MEDICAL CARE IF: You think you are having medication side effects. You have recurrent headaches or lightheadedness. You have swelling in your ankles. You have trouble with your vision. SEEK IMMEDIATE MEDICAL CARE IF: You have sudden onset of chest pain or pressure, difficulty breathing, or other symptoms of a heart attack. You have a severe headache. You have symptoms of a stroke (such as sudden weakness, difficulty speaking , difficulty walking). MAKE SURE YOU: Understand these instructions. Will watch your condition. Will get help right away if you are not doing well or get worse. Document Released: 09/08/2006 Document Revised: 11/30/2012 Document Reviewed: ExitCare Patient Information 2013 [employer] [facility]. No follow up information was provided. Extracted from: Title: Office Visit Note Author: Jori Perez MD Date: 02/28/15 Assessment/Plan Dizziness Moderate orthostasis on bp check today. Plan to adjust and monitor bp meds for a while. Likely due to recent wt loss post op and needing less bp meds at this time. GERD This issue is stable and appropriate refills, lab, and f/u have been discussed. On prilosec. Headaches - Tension This issue is stable and appropriate refills, lab, and f/ u have been discussed. High blood pressure This issue is stable and appropriate refills, lab, and f/ u have been discussed. The patient reports their blood pressure has been stable at home and is not having any significant or related problems. There has been no chest pain, chest pressure, soa/dominguez. Please make the medication adjustments we discussed. Please notify the office for any difficulties or concerns. Pulse was 48-50 on exam and some orthostasis by 16 points on testing. Trial of atenolol 50mg 1/2 tab daily and monitor closely. Cut out atenolol and switch to lisinopril 10mg po daily planned if needed. Close monitoring and reporting of bp if needed. Nausea Trial of zofran 4mg po q6 prn. Post-operative nausea and vomiting See above. Released from surgery. Orders: atenolol, See Instructions, TAKE 1 TABLET BY MOUTH TWICE A DAY., # 180 tabs, eRx: [facility] [id number], TAKE 1 TABLET BY MOUTH TWICE A DAY. ondansetron, 4 mg 1 tabs, Oral, q6hr, Nausea or Vomiting | as needed for nausea/vomiting, # 40 tabs, 0 Refill(s), Pharmacy: [facility] [id number], 1 tabs Oral q6hr,PRN:Nausea or Vomiting | as needed for nausea/vomiting Addendum Lab from 08/2014 reviewed. I don't have any lab accessible right now from [facility]. Plan by lab cbc, cmp, ua soon if not rapidly improving. Jori Perez MD on February 28, 2015 11:49:59 CDT
--- OUTSIDE RECORDS SUMMARY | 2017-02-11 22:55 | XMS REPORT | Referral Summary ---
Author Author [facility], [facility] Organization [facility] Address Unknown Phone Unavailable Care Team Providers Care Vest Maker Name Role Phone Avery Perez Primary Care Physician [phone] Encounter [facility] [id number] Date(s): 08/24/15 - 08/24/15 [facility] [address] [place] [id number] Discharge Diagnosis: Frequent PVCs Discharge Diagnosis: Transaminitis Discharge Diagnosis: Hypercholesteremia Discharge Diagnosis: Essential hypertension Discharge Diagnosis: Palpitations Discharge Diagnosis: Nausea Discharge Disposition: 01-Home or Self Care Attending Physician: Marcus Linda MD Admitting Physician: Marcus Lnida MD Referring Physician: Jori Perez MD Vital Signs Most recent to 1 oldest [Reference Range]: Blood Pressure 130/76 mmHg [90-140/60-90 mmHg] (08/24/15 2:50 PM) Problem List Condition Effective Dates Status [...] DAY., # 180 tabs, 1 Refill(s), eRx: [facility] [id number], TAKE 1 TABLET BY MOUTH TWICE A DAY. Start Date: 08/21/15 Status: Ordered Claritin 10 mg oral tablet 1 tabs, Oral, Daily, # 30 tabs, 0 Refill(s) Start Date: 04/25/14 Status: Ordered clopidogrel 75 mg oral tablet 1 tabs, Oral, Daily, # 90 tabs, 1 Refill(s), Pharmacy: [facility], 1 tabs Oral Daily Start Date: 01/23/15 Status: Ordered [employer] NEXT TEST STRIPS 100'S See Instructions, USE TO TEST BLOOD SUGARS ONCE DAILY, # 100 strip, 2 Refill(s) , eRx: [facility] [id number], USE TO TEST BLOOD SUGARS ONCE DAILY Start Date: 05/16/15 Status: Ordered cyclobenzaprine 10 mg oral tablet See Instructions, 0.5-1 TABS ORAL Q8HR,PRN: NEEDED FOR SPASM, # 100 tabs, eRx : [facility] [id number], 0.5-1 TABS ORAL Q8HR,PRN: NEEDED FOR SPASM Start Date: 08/08/14 Status: Ordered Glucometer strips (DME) DME Item patient tests 1 time daily for dx. 250.00 Uses [employer] next EZ Monitor, See Instructions, # 1 boxes, 3 Refill(s), Pharmacy: [facility] [id number], patient tests 1 time daily for dx. 250.00 Uses [employer] Contour next EZ Monitor, Supply Start Date: 07/20/14 Status: Ordered hydrochlorothiazide 25 mg oral tablet mg tabs, Oral, Daily, 0 Refill(s) Start Date: 08/24/15 Status: Ordered ICaps with Lutein and Zeaxan tabs, Oral, Daily, 0 Refill(s) Start Date: 04/25/14 Status: Ordered metFORMIN 500 mg oral tablet See Instructions, 1 TABS ORAL DAILY, # 90 tabs, 1 Refill(s), eRx: [facility] [id number], 1 TABS ORAL DAILY Start Date: 08/21/15 Status: Ordered Norvasc 10 mg oral tablet See Instructions, TAKE 1 TABLET BY MOUTH EVERY DAY., # 90 tabs, 1 Refill(s), eRx : [facility] [id number], TAKE 1 TABLET BY MOUTH EVERY DAY. Start Date: 08/21/15 Status: Ordered Plavix 75 mg tablet See Instructions, TAKE 1 TABLET BY MOUTH EVERY DAY., # 90 tabs, eRx: [facility] [id number], TAKE 1 TABLET BY MOUTH EVERY DAY. Start Date: 01/23/15 Status: Ordered PriLOSEC 20 mg oral delayed release capsule See Instructions, TAKE 1 CAPSULE BY MOUTH EVERY DAY., # 90 caps, 1 Refill(s), eRx: [facility] [id number], TAKE 1 CAPSULE BY MOUTH EVERY DAY. Start Date: 08/21/15 Status: Ordered Tylenol Regular Strength 325 mg oral tablet tabs, Oral, q4hr, 0 Refill(s) Start Date: 04/25/14 Status: Ordered Zocor 20 mg oral tablet See Instructions, 1 TABS ORAL BEDTIME (ONCE A DAY), # 90 tabs, 1 Refill(s), eRx : [facility] [id number], 1 TABS ORAL BEDTIME (ONCE A DAY) Start Date: 03/27/15 Status: Ordered Zofran ODT 4 mg oral tablet, disintegrating 4 mg 1 tabs, Oral, q6hr, as needed for nausea/vomiting, 0 Refill(s) Start Date: 07/20/15 Status: Ordered Results Chemistry Most recent to 1 oldest [Reference Range]: Albumin Lvl [3.4-4.8 4.3 gm/dL gm/dL] (08/24/15 3:45 PM) Total Protein 6.6 gm/dL [6.2-8.1 gm/dL] (08/24/15 3:45 PM) ALT [0-55 U/L] 64 U/L *HI* (08/24/15 3:45 PM) AST [5-34 U/L] 46 U/L *HI* (08/24/15 3:45 PM) Alk Phos [40-150 96 U/L U/L] (08/24/15 3:45 PM) Bili Total [0.2-1.2 0.7 mg/dL mg/dL] (08/24/15 3:45 PM) Bili Direct [0.0-0.5 0.2 mg/dL mg/dL] (08/24/15 3:45 PM) Bili Indirect 0.5 mg/dL [0.0-1.0 mg/dL] (08/24/15 3:45 PM) TSH with Reflex Free 2.16 T4 [0.35-4.94] (08/24/15 3:45 PM) Immunizations Vaccine Date Refusal Reason tetanus/diphth/pertuss (Tdap) [...] Smoking Status Never smoker Assessment and Plan Referrals to Other Providers Referred by: Marcus Linda MD
--- OUTSIDE RECORDS SUMMARY | 2017-02-11 22:55 | XMS REPORT | Referral Summary ---
Author Author [facility], [facility] Care Organization [facility] Address Unknown Phone Unavailable Care Team Providers Care Rehab/Pre Vocational Counselor Name Role Phone Avery Perez Primary Care Physician [phone] Encounter VC Date(s): 07/19/15 - 07/19/15 [facility] [address] [place] [address] Discharge Disposition: 01-Home or Self Care Attending Physician: Ronaldo Sherwood PA-C Admitting Physician: Ronaldo Sherwood PA-C Vital Signs No data available for this section Problem List Condition Effective Dates Status Health Status Informant Allergies(Confirmed) Active Allergies(Confirmed) Resolved Arthritis(Confirmed) Resolved Bronchitis(Confirmed Resolved ) Cataract(Confirmed) Resolved Cerebral vascular Active accident(Confirmed) Chicken Resolved pox(Confirmed) Coronary artery Active disease(Confirmed) Depression(Confirmed Active ) Deviated nasal Resolved septum(Confirmed) Diabetes(Confirmed) Resolved Dysphagia(Confirmed) Active Ectopic 1969 Resolved (Confirmed) GERD(Confirmed) Active HX ECTOPIC Active (Confirmed) Headaches [...] TWICE A DAY., # 180 tabs, eRx: [facility] [id number], TAKE 1 TABLET BY MOUTH TWICE A DAY. Start Date: 02/27/15 Status: Ordered Claritin 10 mg oral tablet 1 tabs, Oral, Daily, # 30 tabs, 0 Refill(s) Start Date: 04/25/14 Status: Ordered clopidogrel 75 mg oral tablet 1 tabs, Oral, Daily, # 90 tabs, 1 Refill(s), Pharmacy: [facility] [id number], 1 tabs Oral Daily Start Date: 01/23/15 Status: Ordered [email or web address] NEXT TEST STRIPS 100'S See Instructions, USE TO TEST BLOOD SUGARS ONCE DAILY, # 100 strip, 2 Refill(s) , eRx: [facility] [id number], USE TO TEST BLOOD SUGARS ONCE DAILY Start Date: 05/16/15 Status: Ordered cyclobenzaprine 10 mg oral tablet See Instructions, 0.5-1 TABS ORAL Q8HR,PRN: NEEDED FOR SPASM, # 100 tabs, eRx : [facility] [id number], 0.5-1 TABS ORAL Q8HR,PRN: NEEDED FOR SPASM Start Date: 08/08/14 Status: Ordered Glucometer strips (DME) DME Item patient tests 1 time daily for dx. 250.00 Uses [employer] next EZ Monitor, See Instructions, # 1 boxes, 3 Refill(s), Pharmacy: [facility] [id number], patient tests 1 time daily for dx. 250.00 Uses [employer] next EZ Monitor, Supply Start Date: 07/20/14 Status: Ordered hydrochlorothiazide 25 mg oral tablet 1 tabs, Oral, Daily, X 90 days, # 90 tabs, 1 Refill(s), Pharmacy: [facility] [id number], 1 tabs Oral Daily,x90 days Start Date: 01/23/15 Stop Date: 07/22/15 Status: Ordered ICaps with Lutein and Zeaxan tabs, Oral, Daily, 0 Refill(s) Start Date: 04/25/14 Status: Ordered metFORMIN 500 mg oral tablet See Instructions, 1 TABS ORAL DAILY, # 90 tabs, eRx: [facility] [id number] , 1 TABS ORAL DAILY Start Date: 05/15/15 Status: Ordered Norvasc 10 mg oral tablet See Instructions, TAKE 1 TABLET BY MOUTH EVERY DAY., # 90 tabs, eRx: [facility] [id number], TAKE 1 TABLET BY MOUTH EVERY DAY. Start Date: 05/15/15 Status: Ordered Plavix 75 mg tablet See Instructions, TAKE 1 TABLET BY MOUTH EVERY DAY., # 90 tabs, eRx: [facility] [id number], TAKE 1 TABLET BY MOUTH EVERY DAY. Start Date: 01/23/15 Status: Ordered PriLOSEC 20 mg oral delayed release capsule See Instructions, TAKE 1 CAPSULE BY MOUTH EVERY DAY., # 90 caps, eRx: [facility] [id number], TAKE 1 CAPSULE BY MOUTH EVERY DAY. Start Date: 05/15/15 Status: Ordered Tylenol Regular Strength 325 mg oral tablet tabs, Oral, q4hr, 0 Refill(s) Start Date: 04/25/14 Status: Ordered Zocor 20 mg oral tablet See Instructions, 1 TABS ORAL BEDTIME (ONCE A DAY), # 90 tabs, 1 Refill(s), eRx : [facility] [id number], 1 TABS ORAL BEDTIME (ONCE A DAY) Start Date: 03/27/15 Status: Ordered Results No data available for [...] smoker Assessment and Plan Extracted from: Title: Not seen IC--Sent to ER Author: Lyly Arauz MA Date: 07/19/15 Patient presented to IC with complaints of irregular heart rate, weakness, light headed, dizzy, nausea that started at about 1pm this afternoon. No vitals were taken on her. I recommended she go straight to the [facility] for evaluation. They agreed and took her over. [facility] was notified of her coming their way.
--- OUTSIDE RECORDS SUMMARY | 2017-02-11 22:55 | XMS REPORT | Referral Summary ---
Author Author [facility], [facility] Care Organization [facility] Address Unknown Phone Unavailable Care Team Providers Care Angle Bender Name Role Phone Avery Perez Primary Care Physician [phone] Encounter VC Date(s): 07/19/15 - 07/19/15 [facility] [address] [place] [address] Discharge Disposition: 01-Home or Self Care [...] Daily, # 90 tabs, 3 Refill(s), Pharmacy: [facility], 1 tabs Oral Daily Start Date: 01/17/16 Status: Ordered Aspir 81 mg, Oral, Daily, 0 Refill(s) Start Date: 04/25/14 Status: Ordered carvedilol 25 mg oral tablet 25 mg 1 tabs, Oral, BID, # 180 tabs, 4 Refill(s), Pharmacy: [facility] [id number], 1 tabs Oral BID Start Date: 09/27/15 Status: Ordered Claritin 10 mg oral tablet 1 tabs, Oral, Daily, # 30 tabs, 0 Refill(s) Start Date: 04/25/14 Status: Ordered clopidogrel 75 mg oral tablet See Instructions, TAKE 1 TABLET BY MOUTH EVERY DAY, # 90 tabs, 0 Refill(s), Pharmacy: [facility] [id number], TAKE 1 TABLET BY MOUTH EVERY DAY Start Date: 01/15/16 Status: Ordered CONTOUR NEXT TEST STRIPS 100'S See Instructions, USE TO TEST BLOOD SUGARS ONCE DAILY, # 100 strip, eRx: [facility] [id number], USE TO TEST BLOOD SUGARS ONCE DAILY Start Date: 12/07/15 Status: Ordered CONTOUR NEXT TEST STRIPS 100'S See Instructions, USE TO TEST BLOOD SUGARS ONCE DAILY, # 100 strip, 2 Refill(s) , eRx: [facility] 97307, USE TO TEST BLOOD SUGARS ONCE DAILY Start Date: 05/16/15 Status: Ordered cyclobenzaprine 10 mg oral tablet See Instructions, 0.5-1 TABS ORAL Q8HR,PRN: NEEDED FOR SPASM, # 100 tabs, eRx : [facility] 30765, 0.5-1 TABS ORAL Q8HR,PRN: NEEDED FOR SPASM Start Date: 10/24/15 Status: Ordered Glucometer strips (DME) DME Item patient tests 1 time daily for dx. 250.00 Uses [employer] next EZ Monitor, See Instructions, # 1 boxes, 3 Refill(s), Pharmacy: [facility] 04276, patient tests 1 time daily for dx. 250.00 Uses [facility] next EZ Monitor, Supply Start Date: 07/20/14 Status: Ordered hydrochlorothiazide 25 mg oral tablet See Instructions, TAKE 1 TABLET BY MOUTH DAILY, # 45 tabs, eRx: [facility] [id number], TAKE 1 TABLET BY MOUTH DAILY Start Date: 01/01/16 Status: Ordered ICaps with Lutein and Zeaxan tabs, Oral, Daily, 0 Refill(s) Start Date: 04/25/14 Status: Ordered metFORMIN 500 mg oral tablet See Instructions, 1 TABS ORAL DAILY, # 90 tabs, 1 Refill(s), eRx: [facility] 64054, 1 TABS ORAL DAILY Start Date: 08/21/15 Status: Ordered pravastatin 40 mg oral tablet 40 mg 1 tabs, Oral, Daily, # 90 tabs, 5 Refill(s), [facility], 1 tabs Oral Daily Start Date: 09/27/15 Status: Ordered PriLOSEC 20 mg oral delayed release capsule See Instructions, TAKE 1 CAPSULE BY MOUTH EVERY DAY., # 90 caps, 1 Refill(s), [facility], TAKE 1 CAPSULE BY MOUTH EVERY DAY. [...] I recommended she go straight to the [facility] for evaluation. They agreed and took her over. [facility] was notified of her coming their way.
--- OUTSIDE RECORDS SUMMARY | 2017-02-11 22:55 | XMS REPORT | Referral Summary ---
Author Author [facility], [facility] Organization [facility] Address Unknown Phone Unavailable Care Team Providers Care International Trade Specialist Name Role Phone Avery Perez Primary Care Physician [phone] Encounter Date(s): 09/11/15 - 09/11/15 [facility] [address] [place] [id number] Discharge Disposition: 01-Home or Self Care Attending Physician: Marcus Linda MD Admitting Physician: Marcus Linda MD Referring Physician: Jori Perez MD Vital Signs No [...] DAY., # 180 tabs, 1 Refill(s), eRx: [facility] [id number], TAKE 1 TABLET BY MOUTH TWICE A DAY. Start Date: 08/21/15 Status: Ordered Claritin 10 mg oral tablet 1 tabs, Oral, Daily, # 30 tabs, 0 Refill(s) Start Date: 04/25/14 Status: Ordered clopidogrel 75 mg oral tablet 1 tabs, Oral, Daily, # 90 tabs, 1 Refill(s), Pharmacy: [facility], 1 tabs Oral Daily Start Date: 01/23/15 Status: Ordered [employer] NEXT TEST STRIPS 100'S See Instructions, USE TO TEST BLOOD SUGARS ONCE DAILY, # 100 strip, 2 Refill(s) , eRx: [facility] 79199, USE TO TEST BLOOD SUGARS ONCE DAILY Start Date: 05/16/15 Status: Ordered cyclobenzaprine 10 mg oral tablet See Instructions, 0.5-1 TABS ORAL Q8HR,PRN: NEEDED FOR SPASM, # 100 tabs, eRx : [facility] 90154, 0.5-1 TABS ORAL Q8HR,PRN: NEEDED FOR SPASM Start Date: 08/08/14 Status: Ordered Glucometer strips (DME) DME Item patient tests 1 time daily for dx. 250.00 Uses [employer] next EZ Monitor, See Instructions, # 1 boxes, 3 Refill(s), Pharmacy: [facility], patient tests 1 time daily for dx. 250.00 Uses [employer] [facility] [employer] next EZ Monitor, Supply Start Date: 07/20/14 Status: Ordered hydrochlorothiazide 25 mg oral tablet mg tabs, Oral, Daily, 0 Refill(s) Start Date: 08/24/15 Status: Ordered ICaps with Lutein and Zeaxan tabs, Oral, Daily, 0 Refill(s) Start Date: 04/25/14 Status: Ordered metFORMIN 500 mg oral tablet See Instructions, 1 TABS ORAL DAILY, # 90 tabs, 1 Refill(s), eRx: [facility] 16112, 1 TABS ORAL DAILY Start Date: 08/21/15 Status: Ordered Norvasc 10 mg oral tablet See Instructions, TAKE 1 TABLET BY MOUTH EVERY DAY., # 90 tabs, 1 Refill(s), eRx : [facility] 97959, TAKE 1 TABLET BY MOUTH EVERY DAY. Start Date: 08/21/15 Status: Ordered Plavix 75 mg tablet See Instructions, TAKE 1 TABLET BY MOUTH EVERY DAY., # 90 tabs, eRx: [facility] 30094, TAKE 1 TABLET BY MOUTH EVERY DAY. Start Date: 01/23/15 Status: Ordered PriLOSEC 20 mg oral delayed release capsule See Instructions, TAKE 1 CAPSULE BY MOUTH EVERY DAY., # 90 caps, 1 Refill(s), eRx: [facility] 33219, TAKE 1 CAPSULE BY MOUTH EVERY DAY. [...]
--- OUTSIDE RECORDS SUMMARY | 2017-02-11 22:55 | XMS REPORT | Referral Summary ---
Author Author [facility], Surgery Organization [facility], [facility] Address Unknown Phone Unavailable Care Team Providers Care Splunk Developer Name Role Phone Avery Perez Primary Care Physician [phone] Encounter VC Date(s): 02/22/15 - 02/22/15 [facility], Surgery [address] [place] [address] [place] [phone] [place] Discharge Diagnosis: Post-operative state Discharge Diagnosis: Cholecystitis with cholelithiasis Discharge Disposition: 01-Home or Self Care Attending Physician: Brian Zelaya MD Admitting Physician: Brian Zelaya MD Referring Physician: Jori Perez MD Vital Signs Most recent to 1 oldest [Reference Range]: Temperature Tympanic 36.8 degC [36.6-38.1 degC] (02/22/15 11:13 AM) Problem List Condition Effective Dates Status [...] DAY., # 180 tabs, 1 Refill(s), eRx: [facility] [id number], TAKE 1 TABLET BY MOUTH TWICE A DAY. Start Date: 08/21/15 Status: Ordered Claritin 10 mg oral tablet 1 tabs, Oral, Daily, # 30 tabs, 0 Refill(s) Start Date: 04/25/14 Status: Ordered clopidogrel 75 mg oral tablet 1 tabs, Oral, Daily, # 90 tabs, 1 Refill(s), Pharmacy: [facility] [id number], 1 tabs Oral Daily Start Date: 01/23/15 Status: Ordered [employer] NEXT TEST STRIPS 100'S See Instructions, USE TO TEST BLOOD SUGARS ONCE DAILY, # 100 strip, 2 Refill(s) , eRx: [facility] 48015, USE TO TEST BLOOD SUGARS ONCE DAILY Start Date: 05/16/15 Status: Ordered cyclobenzaprine 10 mg oral tablet See Instructions, 0.5-1 TABS ORAL Q8HR,PRN: NEEDED FOR SPASM, # 100 tabs, eRx : [facility] 09468, 0.5-1 TABS ORAL Q8HR,PRN: NEEDED FOR SPASM Start Date: 08/08/14 Status: Ordered Glucometer strips (DME) DME Item patient tests 1 time daily for dx. 250.00 Uses [employer] next EZ Monitor, See Instructions, # 1 boxes, 3 Refill(s), Pharmacy: [facility] [id number], patient tests 1 time daily for dx. 250.00 Uses [employer] next EZ Monitor, Supply Start Date: 07/20/14 Status: Ordered hydrochlorothiazide 25 mg oral tablet mg tabs, Oral, Daily, 0 Refill(s) Start Date: 08/24/15 Status: Ordered ICaps with Lutein and Zeaxan tabs, Oral, Daily, 0 Refill(s) Start Date: 04/25/14 Status: Ordered metFORMIN 500 mg oral tablet See Instructions, 1 TABS ORAL DAILY, # 90 tabs, 1 Refill(s), eRx: [facility] 64912, 1 TABS ORAL DAILY Start Date: 08/21/15 Status: Ordered Norvasc 10 mg oral tablet See Instructions, TAKE 1 TABLET BY MOUTH EVERY DAY., # 90 tabs, 1 Refill(s), eRx : [facility] 89900, TAKE 1 TABLET BY MOUTH EVERY DAY. Start Date: 08/21/15 Status: Ordered Plavix 75 mg tablet See Instructions, TAKE 1 TABLET BY MOUTH EVERY DAY., # 90 tabs, eRx: [facility] 85536, TAKE 1 TABLET BY MOUTH EVERY DAY. Start Date: 01/23/15 Status: Ordered PriLOSEC 20 mg oral delayed release capsule See Instructions, TAKE 1 CAPSULE BY MOUTH EVERY DAY., # 90 caps, 1 Refill(s), eRx: [facility] 87966, TAKE 1 CAPSULE BY MOUTH EVERY DAY. [...] Title: Ambulatory Patient Education Author: Antonia Foss APRN Date : 02/22/15 Surgery Laparoscopic Cholecystectomy Laparoscopic cholecystectomy is surgery [...] vitamins, herbs, eye drops, creams , and [id number] medicines. Previous problems you or members of [...] Released: 09/08/2006 Document Revised: 06/29/2014 Document Reviewed: [facility] Patient Information 2014 [employer]. No follow up information was provided. Extracted from: Title: Office Visit Note Author: Antonia Foss APRN Date: 02/22/15 Assessment/Plan Cholecystitis with cholelithiasis Pathology indicates minimal chronic cholecystitis and cholelithiasis. No unusual findings. Ordered: Postoperative Est 66189 Post-operative state Continue to use common sense with lifting, if there is pain at the trocar sites, especial the umbilical incision, then "back off" and get some help or wait with this activity for a few days. Return to our office on an as needed basis, and continue with general medical care through your primary care provider. Ordered: Postoperative Est 75736
--- OUTSIDE RECORDS SUMMARY | 2017-02-11 22:56 | XMS REPORT | Referral Summary ---
Author Organization Unknown Address Unknown Phone Unavailable Care Team Providers Care Car Designer Name Role Phone Avery Perez Primary Care Physician [phone] Encounter [facility] [id number] Date(s): 01/05/15 - 01/05/15 [facility], Danyell Shea, Otolaryngology [address] [place], [place] [address] Discharge Diagnosis: Lesion of nose Discharge Diagnosis: Benign skin lesion of face Discharge Disposition: Home or Self Care Attending Physician: Carlos Lewis MD Admitting Physician: Carlos Lewis MD Vital Signs Most recent to 1 oldest [Reference Range]: Temperature Tympanic 36.6 degC [36.6-38.1 degC] (01/05/15 2:18 PM) Problem List Condition Effective Dates Status [...] DAY., # 180 tabs, 2 Refill(s), eRx: [facility] 29902, TAKE 1 TABLET BY MOUTH TWICE A DAY. Special Instructions: TAKE 1 TABLET BY MOUTH TWICE A DAY. Start Date: 04/26/14 Status: Ordered Claritin 10 mg oral tablet 1 tabs, Oral, Daily, # 30 tabs, 0 Refill(s) Start Date: 04/25/14 Status: Ordered cyclobenzaprine 10 mg oral tablet See Instructions, 0.5-1 TABS ORAL Q8HR,PRN: NEEDED FOR SPASM, # 100 tabs, 0 Refill(s), Pharmacy: [facility] 29728, 0.5-1 TABS ORAL Q8HR,PRN: NEEDED FOR SPASM Special Instructions: 0.5-1 TABS ORAL Q8HR,PRN: NEEDED FOR SPASM Start Date: 12/07/14 Stop Date: 01/06/15 Status: Ordered cyclobenzaprine 10 mg oral tablet See Instructions, 0.5-1 TABS ORAL Q8HR,PRN: NEEDED FOR SPASM, # 100 tabs, eRx : [facility] 84182, 0.5-1 TABS ORAL Q8HR,PRN: NEEDED FOR SPASM Special Instructions: 0.5-1 TABS ORAL Q8HR,PRN: NEEDED FOR SPASM Start Date: 08/08/14 Status: Ordered Glucometer strips (DME) DME Item patient tests 1 time daily for dx. 250.00 Uses [employer] next EZ Monitor, See Instructions, # 1 boxes, 3 Refill(s), Pharmacy: [facility] 62078, patient tests 1 time daily for dx. 250.00 Uses [employer] next EZ Monitor, Supply Special Instructions: patient tests 1 time daily for dx. 250.00 Uses [employer] next EZ Monitor Start Date: 07/20/14 Status: Ordered hydrochlorothiazide 25 mg oral tablet See Instructions, TAKE 1 TABLET BY MOUTH EVERY DAY, # 90 tabs, eRx: [facility] 57435, TAKE 1 TABLET BY MOUTH EVERY DAY Special Instructions: TAKE 1 TABLET BY MOUTH EVERY DAY Start Date: 10/14/14 Status: Ordered ICaps with Lutein and Zeaxan tabs, Oral, Daily, 0 Refill(s) Start Date: 04/25/14 Status: Ordered metFORMIN 500 mg oral tablet See Instructions, 1 TABS ORAL DAILY, # 90 tabs, eRx: [facility] [id number] , 1 TABS ORAL DAILY Special Instructions: 1 TABS ORAL DAILY Start Date: 10/14/14 Status: Ordered Norvasc 10 mg oral tablet See Instructions, TAKE 1 TABLET BY MOUTH EVERY DAY., # 90 tabs, eRx: [facility] 80437, TAKE 1 TABLET BY MOUTH EVERY DAY. Special Instructions: TAKE 1 TABLET BY MOUTH EVERY DAY. Start Date: 10/14/14 Status: Ordered Plavix 75 mg tablet See Instructions, TAKE 1 TABLET BY MOUTH EVERY DAY., # 90 tabs, eRx: [facility] 31854, TAKE 1 TABLET BY MOUTH EVERY DAY. Special Instructions: TAKE 1 TABLET BY MOUTH EVERY DAY. Start Date: 10/14/14 Status: Ordered Plavix 75 mg tablet See Instructions, TAKE 1 TABLET BY MOUTH EVERY DAY., # 90 tabs, eRx: [facility] 63087, TAKE 1 TABLET BY MOUTH EVERY DAY. Special Instructions: TAKE 1 TABLET BY MOUTH EVERY DAY. Start Date: 07/13/14 Status: Ordered PriLOSEC 20 mg oral delayed release capsule See Instructions, TAKE 1 CAPSULE BY MOUTH EVERY DAY., # 90 caps, eRx: [facility] 37490, TAKE 1 CAPSULE BY MOUTH EVERY DAY. Special Instructions: TAKE 1 CAPSULE BY MOUTH EVERY DAY. Start Date: 10/14/14 Status: Ordered Tylenol Regular Strength 325 mg oral tablet tabs, Oral, q4hr, 0 Refill(s) Start Date: 04/25/14 Status: Ordered Zocor 20 mg oral tablet See Instructions, 1 TABS ORAL BEDTIME (ONCE A DAY), # 90 tabs, eRx: [facility] 41759, 1 TABS ORAL BEDTIME (ONCE A DAY) Special Instructions: 1 TABS ORAL BEDTIME (ONCE A DAY) Start Date: 12/15/14 Status: Ordered Results No data available for this section Immunizations Vaccine Date Refusal Reason tetanus/diphth/pertuss (Tdap) adult/adol 05/27/13 influenza virus vaccine, live 06/29/13 influenza virus vaccine, live 06/24/12 tetanus-diphth toxoids (Td) adult/adol 12/16/02 zoster vaccine live 05/09/14 Procedures Procedure Date Related Diagnosis Body Site Biopsy of skin, subcutaneous tissue and/or 01/05/15 mucous membrane (including simple closure), unless otherwise listed; single lesion Colonoscopies1 05/11/10 Colonoscopy 2010 ECTOPIC 1969 Appendectomy Plastic surgery2 plastic surgery on nose 1MULTIADENOMATOUS POLYPS 3 YEARS REPEAT 2nose Social History Social History Type Response Smoking Status Never smoker Assessment and Plan Extracted from: Title: Office Visit Note Author: Carlos Lewis MD Date: 01/05/15 Assessment/Plan 1.Benign skin lesion of face Two benign skin lesions biopsied as described above. Patient has been assured regarding benign characterization of lesions. She can report back for follow-up if she has any further problems. Ordered: Biopsy Of Skin, Single Lesion 29264 Office Visit Level 4 Est 99257
--- OUTSIDE RECORDS SUMMARY | 2017-02-11 22:56 | XMS REPORT | Referral Summary ---
Author Author [facility], Card[facility] Organization [facility], [facility] Address Unknown Phone Unavailable Care Team Providers Care Fretted Instruments Inspector Name Role Phone Avery Perez Primary Care Physician [phone] Encounter Date(s): 09/27/15 - 09/27/15 [facility], Cardiology [address] [place] [address] [place] [phone]- [place] Discharge Diagnosis: Essential hypertension Discharge Diagnosis: History of CVA (cerebrovascular accident) Discharge Diagnosis: Hypercholesteremia Discharge Diagnosis: Palpitations Discharge Disposition: 01-Home or Self Care Attending Physician: Marcus Linda MD Admitting Physician: Marcus Linda MD Referring Physician: Jori Perez MD Vital Signs Most recent to 1 oldest [Reference Range]: Peripheral Pulse 68 bpm Rate [60-100 bpm] (09/27/15 12:33 PM) Blood Pressure 130/70 mmHg [90-140/60-90 mmHg] (09/27/15 12:33 PM) Problem List Condition Effective Dates Status [...] BID, # 180 tabs, 4 Refill(s), Pharmacy: [facility] 22680, 1 tabs Oral BID Start Date: 09/27/15 Status: Ordered Claritin 10 mg oral tablet 1 tabs, Oral, Daily, # 30 tabs, 0 Refill(s) Start Date: 04/25/14 Status: Ordered clopidogrel 75 mg oral tablet 1 tabs, Oral, Daily, # 90 tabs, 1 Refill(s), Pharm[facility]: [facility], 1 tabs Oral Daily Start Date: 01/23/15 Status: Ordered [employer] NEXT TEST STRIPS 100'S See Instructions, USE TO TEST BLOOD SUGARS ONCE DAILY, # 100 strip, 2 Refill(s) , eRx: [facility], USE TO TEST BLOOD SUGARS ONCE DAILY Start Date: 05/16/15 Status: Ordered cyclobenzaprine 10 mg oral tablet See Instructions, 0.5-1 TABS ORAL Q8HR,PRN: NEEDED FOR SPASM, # 100 tabs, [facility] : [facility], 0.5-1 TABS ORAL Q8HR,PRN: NEEDED FOR SPASM Start Date: 09/25/15 Status: Ordered Glucometer strips (DME) DME Item patient tests 1 time daily for dx. 250.00 Uses [facility] next EZ Monitor, See Instructions, # 1 boxes, 3 Refill(s), Pharmacy: [facility] 14343, patient tests 1 time daily for dx. 250.00 Uses [facility] E[facility] Monitor, Supply Start Date: 07/20/14 Status: Ordered hydrochlorothiazide 25 mg oral tablet mg tabs, Oral, Daily, 0 Refill(s) Start Date: 08/24/15 Status: Ordered ICaps with Lutein and Zeaxan tabs, Oral, Daily, 0 Refill(s) Start Date: 04/25/14 Status: Ordered metFORMIN 500 mg oral tablet See Instructions, 1 TABS ORAL DAILY, # 90 tabs, 1 Refill(s), [facility], 1 TABS ORAL DAILY Start Date: 08/21/15 Status: Ordered Norvasc 10 mg oral tablet See Instructions, TAKE 1 TABLET BY MOUTH EVERY DAY., # 90 tabs, 1 Refill(s), [facility] : [facility], TAKE 1 TABLET BY MOUTH EVERY DAY. Start Date: 08/21/15 Status: Ordered pravastatin 40 mg oral tablet 40 mg 1 tabs, Oral, Daily, # 90 tabs, 5 Refill(s), Pharmacy: [facility] 15076, 1 tabs Oral Daily Start Date: 09/27/15 Status: Ordered PriLOSEC 20 mg oral delayed release capsule See Instructions, TAKE 1 CAPSULE BY MOUTH EVERY DAY., # 90 caps, 1 Refill(s), [facility], TAKE 1 CAPSULE BY MOUTH EVERY DAY. [...] live 05/09/14 1Location History: [facility] 2Location History: [facility] Procedures Procedure Date Related Diagnosis Body Site Laparoscopic cholecystectomy with 02/16/15 cholangiography Colonoscopies1 05/11/10 Colonoscopy 2010 ECTOPIC 1969 Appendectomy Plastic surgery2 plastic surgery on nose 1MULTIADENOMATOUS POLYPS 3 YEARS REPEAT 2nose Social History Social History Type Response Smoking Status Never smoker Assessment and Plan Extracted from: Title: Office Visit Note Author: Marcus Linda MD Date: 09/27/15 Assessment/Plan 1.Essential hypertension Ordered: Comprehensive Metabolic Panel Return to Clinic 2.Hypercholesteremia Ordered: Comprehensive Metabolic Panel Return to Clinic 3.Palpitations Ordered: Comprehensive Metabolic Panel Return to Clinic 4.History of CVA (cerebrovascular accident) Discussion:We advised her that her stress test is favorable and that her heart function is excellent and that her rhythm seems generally favorable. We reviewed her prevention program and management program as follows: We advised her to discontinue simvastatin in view of the potential for interaction with amlodipine and to start pravastatin, 40 mg daily. We advised a chemistry profile in 2-3 months to be sure that her liver function is doing okay. We advised herto reduce her amlodipine to 5 mg daily and we changed atenolol to carvedilol, 25 mg twice a day. We advised her to tighten up with her diet. We advised her to do some routine fitness activitieson a daily basis. We advised a follow-up in 3 months. We advised her tomeasure her blood pressure twice a week and to let us know if it is out of line or if she is having symptoms. This visit was mostly to summarizeand manage. Time of visit about 20-25 minutes. Ordered: Comprehensive Metabolic Panel Return to Clinic Orders: carvedilol, 25 mg 1 tabs, Oral, BID, # 180 tabs, 4 Refill(s), Pharmacy : [facility] 71300, 1 tabs Oral BID pravastatin, 40 mg 1 tabs, Oral, Daily, # 90 tabs, 5 Refill(s), Pharmacy: [facility] 86899, 1 tabs Oral Daily Referrals to Other Providers Referred by: Marcus Linda MD
--- OUTSIDE RECORDS SUMMARY | 2017-02-11 22:56 | XMS REPORT | Continuity of Care Document ---
Author Author Chris PISANO, OPHELIA, Jori W [facility] Ambulatory Address [address] [place] [address] [facility] [place] [address] Phone Care Team Providers Care Windows Consultant Name Role Phone Jori Perez PP Unavailable Payers Payer name Insurance type Covered alliance party ID Authorization(s) Unknown Problems Condition Effective Dates (start - stop) Clinical Status Bronchitis, Acute - *Acute Cough - *Acute Hypertension, Benign - *Controlled OTHER ABNORMAL GLUCOSE - *Controlled Unspecified cerebrovascular disease - *Controlled GERD - *Controlled Hypertension, Benign - *Chronic Other and unspecified hyperlipidemia - *Chronic OTHER ABNORMAL GLUCOSE - *Chronic Unspecified cerebrovascular disease - *Chronic GERD - *Chronic Insomnia, Other - *Chronic Pain in limb - *Chronic Long-term Use of Anticoagulants - *Chronic Personal history of colonic polyps - *Chronic Pain in limb - *Acute Edema - *Acute Hypertension, Benign - *Chronic Other and unspecified hyperlipidemia - *Chronic GERD - *Chronic Unspecified cerebrovascular disease - *Chronic Long-term Use of Anticoagulants - *Chronic NEED FOR PROPHYLACTIC VACCINATION WITH COMBINED [id number] ( DTP) (DTAP) VACCINE - Hypertension, Benign - *Poor control Other and unspecified hyperlipidemia - *Chronic GERD - *Chronic Cough - *Chronic Unspecified cerebrovascular disease - *Chronic Dermatophytosis of nail - *Chronic OTHER ABNORMAL GLUCOSE - *Chronic Allergic rhinitis, cause unspecified - *Chronic Irritable bowel syndrome - *Acute Family History Family Member Diagnosis Age At Onset Status Son (Unknown) Depression Yes Brother (Unknown) Depression Yes Father (Unknown) Hypertension Yes Paternal grandmother (Unknown) CAD Yes AUNT () Myocardial infarction 50 (Unknown) Paternal grandfather () STROKE 72 (Unknown) Paternal grandmother (Unknown) Depression Yes Mother (Alive) Parkinson's disease (Unknown) UNCLE () Myocardial infarction 50 (Unknown) Sister (Unknown) Obesity Yes Mother (Unknown) Asthma Yes Mother (Alive) THYROID ISSUES (Unknown) Brother (Unknown) Obesity Yes Father (Alive) STROKE 58 (Unknown) Father (Unknown) Depression Yes Brother (Unknown) Asthma Yes Father (Unknown) CAD Yes Brother (Alive) Cancer, bladder Yes Social History Social History Element Description Quantity Unknown Allergies, Adverse Reactions, Alerts Substance Reaction Severity Status Unknown Medications Medication Instructions Dosage Effective Dates (start - stop) Status Remeron 15 mg tablet take 1 tablet (15MG) by oral route every day before bedtime 15 MG - Active prednisone 20 mg tablet take 1 tablet (20MG) by oral route every day 20 MG - Active promethazine-codeine 6.25 mg-10 mg/5 mL syrup take 5 milliliter by oral route every 6 hours as needed, not to exceed 30 mL in 24 hours 0 - Active Zithromax 250 mg tablet take 2 tablet (500MG) by oral route every day for 1 day then 1 tablet (250 mg) by oral route once daily for 4 days 500 MG 2013 - No Longer Active Prilosec 20 mg capsule,delayed release Take 1 capsule by mouth every day. - Active Plavix 75 mg tablet Take 1 tablet by mouth every day. - Active hydrochlorothiazide 25 mg tablet take 1 Tablet by Oral route every day 0 - Active Norvasc 10 mg tablet Take 1 tablet by mouth every day. - Active atenolol 50 mg tablet Take 1 tablet by mouth twice a day. - Active Zocor 20 mg tablet Take 1 tablet by mouth every day. - Active Flexeril 10 mg tablet TAKE 1/2-1 TABLETS BY MOUTH EVERY 8 HOURS NEEDED. - Active Immunizations Vaccine Date Status Comments Tdap (Boostrix r) completed flu (split) (3 yrs or older) preservative free completed - Completed reason: parent's written record flu (split) (3 yrs or older) completed - Completed reason: other provider Td (adult) completed - Completed reason: source unspecified Results Test Name Date and Time Measure Units Reference Range Abnormal Flag Comments Panel Description: CBC WBC 15:37:00 13.1 K/uL 4.8-10.8 H RBC 15:37:00 4.74 M/uL 4.00-5.20 HGB 15:37:00 13.1 g/dl 12.0-16.0 HCT 15:37:00 39.0 % 37.0-47.0 MCV 15:37:00 82.3 fL 82.0-99.0 MCH 15:37:00 27.6 pg 27.0-32.0 MCHC 15:37:00 33.6 g/dL 32.0-36.0 RDW 15:37:00 13.2 % 11.5-14.5 MPV 15:37:00 12.0 fL 8.8-14.8 Platelet Count 15:37:00 207 K/uL 150-400 Immature Granulocytes 15:37:00 0.3 % 0.0-1.0 Absolute Neutrophils 15:37:00 10.18 THOUS 1.90-7.00 H Absolute Lymphocytes 15:37:00 1.88 THOUS 0.80-3.30 Absolute Monocytes 15:37:00 0.89 THOUS 0.30-1.00 Absolute Eosinophils 15:37:00 0.09 THOUS 0.00-0.50 Absolute Basophils 15:37:00 0.02 THOUS 0.00-0.20 Neutrophils 15:37:00 78 % 51-75 H Lymphocytes 15:37:00 14 % 20-46 L Monocytes 15:37:00 7 % 4-11 Eosinophils 15:37:00 1 % 0-4 Basophils 15:37:00 0 % 0-2 Testing performed at [facility] [address] [facility] [address] Signal Repairer Ian Pringle MD Panel Description: Chemistry Profile Glucose 15:37:00 197 mg/dL 70-99 H BUN 15:37:00 22 mg/dL 10-20 H Creatinine 15:37:00 0.84 mg/dL 0.57-1.11 Calcium 15:37:00 9.4 mg/dL 8.9-10.5 Sodium 15:37:00 142 mEq/L 135-144 Potassium 15:37:00 3.4 mEq/L 3.5-5.2 L Chloride 15:37:00 102 mEq/L 99-111 CO2 15:37:00 27 mEq/L 22-31 Albumin 15:37:00 4.1 g/dL 3.4-4.8 Bilirubin Total 15:37:00 1.2 mg/dL 0.2-1.2 Alkaline Phosphatase 15:37:00 108 U/L 40-150 Protein 15:37:00 6.6 g/dL 6.2-8.1 ALT (SGPT) 15:37:00 30 U/L 0-55 AST (SGOT) 15:37:00 21 U/L 5-34 Anion Gap 15:37:00 13 3-20 Globulin 15:37:00 2.5 g/dL 1.8-4.0 Testing performed at [facility] [address] [facility] [address] Signal Repairer Ian Pringle MD Panel Description: EGFR-[facility] eGFR 15:37:00 >60 mL/min >60 Multiply eGFR results by 1.21 for race.Testing performed at [facility] [address] [facility] [address] Signal Repairer Ian Pringle MD Vital Signs Date / Time: Height Weight Pulse Rate Blood Pressure Temperature /15:15:00 59.00 in 160.00 lbs 130/70 mm[Hg] 99.5 F Procedures Procedure Date Unknown Encounters Encounter Location Date Patient Visit [facility] Patient Visit [facility] Patient Visit [facility] Patient Visit [facility] Patient Visit [facility] Patient Visit [facility] Patient Visit [facility] Patient Visit [facility] Patient Visit [facility] Patient Visit [facility] Patient Visit [facility] Patient Visit [facility] Advance Directives Directive Effective Date Unknown
--- OUTSIDE RECORDS SUMMARY | 2017-02-11 22:56 | XMS REPORT | Referral Summary ---
Author Author [facility] Organization [facility] Address Unknown Phone Unavailable Care Team Providers Care Receiving Checker Name Role Phone Avery Perez Primary Care Physician [phone] Encounter VC Date(s): 02/09/16 - 02/09/16 [facility] [address] [place] [address] Discharge Disposition: 01-Home or Self Care Attending Physician: Jori Perez MD Admitting Physician: Jori Perez MD Vital Signs Most recent to 1 oldest [Reference Range]: Blood Pressure 130/60 mmHg [90-140/60-90 mmHg] (02/09/16 10:59 AM) Problem List Condition Effective Dates Status [...] Daily, # 90 tabs, 3 Refill(s), Pharmacy: [facility] [id number], 1 tabs Oral Daily Start Date: 01/17/16 [...] DAY, # 90 tabs, 0 Refill(s), Pharmacy: [facility] [id number], TAKE 1 TABLET BY MOUTH EVERY DAY Start Date: 01/15/16 Status: Ordered [employer] NEXT TEST STRIPS 100'S See Instructions, USE TO TEST BLOOD SUGARS ONCE DAILY, # 100 strip, 2 Refill(s) , eRx: [facility] [id number], USE TO TEST BLOOD SUGARS ONCE DAILY Start Date: 05/16/15 Status: Ordered cyclobenzaprine 10 mg oral tablet See Instructions, 0.5-1 TABS ORAL Q8HR,PRN: NEEDED FOR SPASM, # 100 tabs, eRx : [facility] [id number], 0.5-1 TABS ORAL Q8HR,PRN: NEEDED FOR SPASM Start Date: 10/24/15 Status: Ordered Glucometer strips (DME) DME Item patient tests 1 time daily for dx. 250.00 Uses [employer] next EZ Monitor, See Instructions, # 1 boxes, 3 Refill(s), Pharmacy: [facility] [id number], patient tests 1 time daily for dx. 250.00 Uses [employer] next EZ Monitor, Supply Start Date: 07/20/14 Status: Ordered hydrochlorothiazide 25 mg oral tablet See Instructions, TAKE 1 TABLET BY MOUTH DAILY, # 45 tabs, eRx: [facility] [id number], TAKE 1 TABLET BY MOUTH DAILY Start Date: 01/01/16 Status: Ordered ICaps with Lutein and Zeaxan tabs, Oral, Daily, 0 Refill(s) Start Date: 04/25/14 Status: Ordered lutein 10 mg, Oral, Daily, 0 Refill(s) Start Date: 02/09/16 Status: Ordered metFORMIN 500 mg oral tablet See Instructions, 1 TABS ORAL DAILY, # 90 tabs, 1 Refill(s), eRx: [facility] [id number], 1 TABS ORAL DAILY Start Date: 08/21/15 Status: Ordered pravastatin 40 mg oral tablet 40 mg 1 tabs, Oral, Daily, # 90 tabs, 5 Refill(s), Pharmacy: [facility] [id number], 1 tabs Oral Daily Start Date: 09/27/15 Status: Ordered PriLOSEC 20 mg oral delayed release capsule See Instructions, TAKE 1 CAPSULE BY MOUTH EVERY DAY., # 90 caps, 1 Refill(s), eRx: [facility] [id number], TAKE 1 CAPSULE BY MOUTH EVERY DAY. Start Date: 08/21/15 Status: Ordered Tylenol Regular Strength 325 mg oral tablet tabs, Oral, q4hr, 0 Refill(s) Start Date: 04/25/14 Status: Ordered Results Hematology Most recent to 1 oldest [Reference Range]: WBC [4.8-10.8 6.7 10*3/uL 10*3/uL] (02/09/16 11:40 AM) RBC [4.00-5.20] 5.16 (02/09/16 11:40 AM) Hgb [12.0-16.0 14.5 gm/dL gm/dL] (02/09/16 11:40 AM) Hct [37.0-47.0 %] 43.3 % (02/09/16 11:40 AM) MCV [82.0-99.0 fL] 83.9 fL (02/09/16 11:40 AM) MCH [27.0-32.0 pg] 28.1 pg (02/09/16 11:40 AM) MCHC [32.0-36.0 33.5 gm/dL gm/dL] (02/09/16 11:40 AM) RDW [11.5-14.5 %] 13.7 % (02/09/16 11:40 AM) Platelet [150-400 140 10*3/uL 10*3/uL] *LOW* (02/09/1640 AM) MPV [8.8-14.8 fL] 12.5 fL (02/09/1640 AM) Immature 0.1 % Granulocytes (02/09/1640 ) [0.0-1.0 %] Neutrophils [51-75 58 % %] (02/09/1640 AM) Lymphocytes [20-46 30 % %] (02/09/1640 AM) Monocytes [4-11 %] 8 % (02/09/1640 AM) Eosinophils [0-4 %] 4 % (02/09/16 AM) Basophils [0-2 %] 0 % (02/09/1640 AM) Neutro Absolute 3.90 10*3 [1.90-7.00 10*3] (02/09/1640 AM) Lymph Absolute 1.99 10*3 [0.80-3.30 10*3] (02/09/16:40 AM) [place] Absolute 0.53 10*3 [0.30-1.00 10*3] (02/09/16:40 AM) Eos Absolute 0.24 10*3 [0.00-0.50 10*3] (02/09/16 11:40 AM) Baso Absolute 0.03 10*3 [0.00-0.20 10*3] (02/09/16 11:40 AM) Chemistry Most recent to 1 oldest [Reference Range]: Sodium Lvl [135-144 142 mEq/L mEq/L] (02/09/1640 AM) Potassium Lvl 3.9 mEq/L [3.5-5.2 mEq/L] (02/09/16:40 AM) Chloride [99-111 103 mEq/L mEq/L] (02/09/1640 AM) CO2 [22-31 mEq/L] 29 mEq/L (02/09/16:40 AM) AGAP [3-20] 10 (02/09/16:40 AM) BUN [10-20 mg/dL] 23 mg/dL *HI* (5/20/16 11:40 AM) Glucose Lvl [70-99 99 mg/dL mg/dL] (02/09/16 11:40 AM) Creatinine Lvl 0.76 mg/dL [0.57-1.11 mg/dL] (02/09/16 11:40 AM) eGFR [>60 mL/min] >60 mL/min 1 (02/09/16 11:40 AM) Calcium Lvl 9.7 mg/dL [8.9-10.5 mg/dL] (02/09/16 11:40 AM) Albumin Lvl [3.4-4.8 4.5 gm/dL gm/dL] (02/09/16 11:40 AM) Total Protein 6.4 gm/dL [6.2-8.1 gm/dL] (02/09/16:40 AM) Globulin [1.8-4.0 1.9 gm/dL gm/dL] (02/09/16 11:40 AM) ALT [0-55 U/L] 27 U/L (02/09/16 11:40 AM) AST [5-34 U/L] 20 U/L (02/09/16 11:40 AM) Alk Phos [40-150 64 U/L U/L] (02/09/16 11:40 AM) Bili Total [0.2-1.2 1.1 mg/dL mg/dL] (02/09/16 11:40 AM) TSH with Reflex Free 2.36 T4 [0.35-4.94] (02/09/16 11:40 AM) Hgb A1c [4.1-5.6 %] 6.1 % *HI* (02/09/16 11:40 AM) eAvg Glucose 128.4 mg/dL (02/09/16 11:40 AM) 1Result Comment: Multiply eGFR results by 1.21 for race. Urinalysis Most recent to 1 oldest [Reference Range]: UA Color Yellow (02/09/16 11:40 AM) UA Appear Clear (02/09/16 11:40 AM) UA pH [5.0-8.0] 6.5 (02/09/16 11:40 AM) UA Leuk Est Trace [Negative] *ABN* (02/09/16 11:40 AM) UA Nitrite Negative [Negative] (02/09/16 11:40 AM) UA Protein Negative [Negative] (02/09/16 11:40 AM) UA Glucose Negative [Negative] (02/09/16 11:40 AM) UA Ketones Negative [Negative] (02/09/16 11:40 AM) UA Urobilinogen 1.0 mg/dL [<1.0 mg/dL] (02/09/16 11:40 AM) UA Bili [Negative] Negative (02/09/16 11:40 AM) UA Blood [Negative] Negative (02/09/16 11:40 AM) UA Spec Grav 1.017 [1.003-1.030] (02/09/16 11:40 AM) Type Voided (02/09/16 11:40 AM) UA WBC [0-4] 0-2 (02/09/16 11:40 AM) UA RBC [0-4] 0-4 (02/09/16 11:40 AM) Epithelial Cells 0-2 (02/09/16 11:40 AM) Immunizations Vaccine Date Refusal Reason tetanus/diphth/pertuss (Tdap) [...] Patient Education Author: Jori Perez MD Date: Cardiovascular Atrial Flutter Atrial flutter is a heart rhythm that can cause the heart to beat very fast ( tachycardia). It originates in the upper chambers of the heart (atria). In atrial flutter, the top chambers of the heart (atria) often beat much faster than the bottom chambers of the heart (ventricles). Atrial flutter has a regular "saw toothed" appearance in an EKG readout. An EKG is a test that records the electrical activity of the heart. Atrial flutter can cause the heart to beat up to 150 beats per minute (BPM). Atrial flutter can either be short lived (paroxysmal) or permanent. CAUSES Causes of atrial flutter can be many. Some of these include: Heart related issues: Heart attack (myocardial infarction). Heart failure. Heart valve problems. Poorly controlled high blood pressure (hypertension). After open heart surgery. Lung related issues: A blood clot in the lungs (pulmonary embolism). Chronic obstructive pulmonary disease (COPD). Medications used to treat COPD can attribute to atrial flutter. Other related causes: Hyperthyroidism. Caffeine. Some decongestant cold medications. Low electrolyte levels such as potassium or magnesium. Cocaine. SYMPTOMS An awareness of your heart beating rapidly (palpitations). Shortness of breath. Chest pain. Low blood pressure (hypotension). Dizziness or fainting. DIAGNOSIS Different tests can be performed to diagnose atrial flutter. An EKG. Holter monitor. This is a 24-hour recording of your heart rhythm. You will also be given a diary. Write down all symptoms that you have and what you were doing at the time you experienced symptoms. Cardiac event monitor. This small device can be worn for up to 30 days. When you have heart symptoms, you will push a button on the device. This will then record your heart rhythm. Echocardiogram. This is an imaging test to look at your heart. Your caregiver will look at your heart valves and the ventricles. Stress test. This test can help determine if the atrial flutter is related to exercise or if coronary artery disease is present. Laboratory studies will look at certain blood levels like: Complete blood count (CBC). Potassium. Magnesium. Thyroid function. TREATMENT Treatment of atrial flutter varies. A combination of therapies may be used or sometimes atrial flutter may need only 1 type of treatment. Lab work: If your blood work, such as your electrolytes (potassium, magnesium) or your thyroid function tests, are abnormal, your caregiver will treat them accordingly. Medication: There are several different types of medications that can convert your heart to a normal rhythm and prevent atrial flutter from reoccurring. Nonsurgical procedures: Nonsurgical techniques may be used to control atrial flutter. Some examples include: Cardioversion. This technique uses either drugs or an electrical shock to restore a normal heart rhythm: Cardioversion drugs may be given through an intravenous (IV) line to help "reset" the heart rhythm. In electrical cardioversion, your caregiver shocks your heart with electrical energy. This helps to reset the heartbeat to a normal rhythm. Ablation. If atrial flutter is a persistent problem, an ablation may be needed. This procedure is done under mild sedation. High frequency radio-wave energy is used to destroy the area of heart tissue responsible for atrial flutter. SEEK IMMEDIATE MEDICAL CARE IF: You have: Dizziness. Near fainting or fainting. Shortness of breath. Chest pain or pressure. Sudden nausea or vomiting. Profuse sweating. If you have the above symptoms, call your local emergency service immediately! Do not drive yourself to the hospital. MAKE SURE YOU: Understand these instructions. Will watch your condition. Will get help right away if you are not doing well or get worse. This information is not intended to replace advice given to you by your health care provider. Make sure you discuss any questions you have with your health care provider. Document Released: 01/25/2010 Document Revised: 01/23/2015 Document Reviewed: ExitCare Patient Information 2015 [employer]. No follow up information was provided. Extracted from: Title: Office Visit Note Author: Jori Perez MD Date: 02/09/16 Assessment/Plan Acquired hammer toe Pendingsurgery on 02/22. Patient is to clarifyplavix status with surgery. She is at higher risk for recurrent tia/cva if stopping the plavix. Provided lab is normal she is cleared for OP surgery. Anticoagulation adequate This issue was reviewed, appears stable, and current therapy continued except as mentioned. Appropriate lab was reviewed from the most recent appropriate entry and lab was ordered if needed in the cpoe/nursing orders, and follow up recommended generally in 90 days and no later then six months. Patient to clarify with Dr. Villanueva thestatus of plavix prior to surgery. She is at higher risk of recurrent tia/cva if stopping the plavix short term. Coronary artery disease This issue was reviewed, appears stable, and current therapy continued except as mentioned. Appropriate lab was reviewed from the most recent appropriate entry and lab was ordered if needed in the cpoe/nursing orders, and follow up recommended generally in 90 days and no later then six months. Diabetes This issue was reviewed, appears stable, and current therapy continued except as mentioned. Appropriate lab was reviewed from the most recent appropriate entry and lab was ordered if needed in the cpoe/nursing orders, and follow up recommended generally in 90 days and no later then six months. The patient was notified for the need for regular quarterly f/u of their diabetes. Further any pertinent medication, supplies, etc were refilled. Additionally, they are to have annual eye exams, foot exams, and regular care. Lab pending. Ordered: CBC w/ Differential Comprehensive Metabolic Panel Hemoglobin A1c TSH with Reflex Free T4 Urinalysis with Culture if Indicated GERD This issue was reviewed, appears stable, and current therapy continued except as mentioned. Appropriate lab was reviewed from the most recent appropriate entry and lab was ordered if needed in the cpoe/nursing orders, and follow up recommended generally in 90 days and no later then six months. High blood pressure This issue was reviewed, [...] been no chest pain, chest pressure, soa/dominguez. Preop examination Provided lab is normal she is cleared forOP surgery. EKG showed a NSR. Transient ischemic attack (TIA) The patient's issue is nearly or completely resolved. There is no further issues or testing desired by them at this time. On plavix. Addendum On rechecking her EKG she did have some bradycardia presumably from her coreg. We need by to cut her dose back to 25mg one tab qhs and 1/2 tab am and monitor bp and HR. Jori Perez MD on February 09, 2016 11:22:02 CDT
--- OUTSIDE RECORDS SUMMARY | 2017-02-11 22:56 | XMS REPORT | Referral Summary ---
Author Author [facility] Organization [facility] Address Unknown Phone Unavailable Care Team Providers Care Stamp Pad Maker Name Role Phone Avery Perez Primary Care Physician [phone] Encounter Date(s): 09/11/15 - 09/11/15 [facility] [address] [place] [id number] Discharge Disposition: 01-Home or Self Care Attending Physician: Marcus Linda MD Admitting Physician: Marcus Linda MD Referring Physician: Jori Perez MD Vital Signs Most recent to 1 oldest [Reference Range]: Peripheral Pulse 55 bpm Rate [60-100 bpm] *LOW* (09/11/15 12:55 PM) Blood Pressure 146/81 mmHg [90-140/60-90 mmHg] *HI* (09/11/15 12:55 PM) Problem List Condition Effective Dates Status [...] DAY., # 180 tabs, 1 Refill(s), eRx: [facility] [id number], TAKE 1 TABLET BY MOUTH TWICE A DAY. Start Date: 08/21/15 Status: Ordered Claritin 10 mg oral tablet 1 tabs, Oral, Daily, # 30 tabs, 0 Refill(s) Start Date: 04/25/14 Status: Ordered clopidogrel 75 mg oral tablet 1 tabs, Oral, Daily, # 90 tabs, 1 Refill(s), Pharmacy: [facility], 1 tabs Oral Daily Start Date: 01/23/15 Status: Ordered [employer] NEXT TEST STRIPS 100'S See Instructions, USE TO TEST BLOOD SUGARS ONCE DAILY, # 100 strip, 2 Refill(s) , eRx: [facility] [id number], USE TO TEST BLOOD SUGARS ONCE DAILY Start Date: 05/16/15 Status: Ordered cyclobenzaprine 10 mg oral tablet See Instructions, 0.5-1 TABS ORAL Q8HR,PRN: NEEDED FOR SPASM, # 100 tabs, eRx : [facility] [id number], 0.5-1 TABS ORAL Q8HR,PRN: NEEDED FOR SPASM Start Date: 08/08/14 Status: Ordered Glucometer strips (DME) DME Item patient tests 1 time daily for dx. 250.00 Uses [employer] next EZ Monitor, See Instructions, # 1 boxes, 3 Refill(s), Pharmacy: [facility] [id number], patient tests 1 time daily for dx. 250.00 Uses [employer] next EZ Monitor, Supply Start Date: 07/20/14 Status: Ordered hydrochlorothiazide 25 mg oral tablet mg tabs, Oral, Daily, 0 Refill(s) Start Date: 08/24/15 Status: Ordered ICaps with Lutein and Zeaxan tabs, Oral, Daily, 0 Refill(s) Start Date: 04/25/14 Status: Ordered metFORMIN 500 mg oral tablet See Instructions, 1 TABS ORAL DAILY, # 90 tabs, 1 Refill(s), eRx: [facility] [id number], 1 TABS ORAL DAILY Start Date: 08/21/15 Status: Ordered Norvasc 10 mg oral tablet See Instructions, TAKE 1 TABLET BY MOUTH EVERY DAY., # 90 tabs, 1 Refill(s), eRx : [facility] [id number], TAKE 1 TABLET BY MOUTH EVERY DAY. Start Date: 08/21/15 Status: Ordered Plavix 75 mg tablet See Instructions, TAKE 1 TABLET BY MOUTH EVERY DAY., # 90 tabs, eRx: [facility] [id number], TAKE 1 TABLET BY MOUTH EVERY DAY. Start Date: 01/23/15 Status: Ordered PriLOSEC 20 mg oral delayed release capsule See Instructions, TAKE 1 CAPSULE BY MOUTH EVERY DAY., # 90 caps, 1 Refill(s), eRx: [facility] [id number], TAKE 1 CAPSULE BY MOUTH EVERY DAY. [...]
--- OUTSIDE RECORDS SUMMARY | 2017-02-11 22:56 | XMS REPORT | Referral Summary ---
Author Organization Unknown Address Unknown Phone Unavailable Care Team Providers Care Clay Pigeon Loader Name Role Phone Avery Perez Primary Care Physician [phone] Encounter Date(s): 10/10/14 - 10/10/14 [facility], Danyell Shea, [facility]ol[facility] [address] [facility] [place] [address] Discharge Disposition: Home or Self Care Attending [...] infection(Confirmed) Allergies, Adverse Reactions, Alerts No Known Allergies Medications Aspir 81 mg, Oral, Daily, 0 Refill(s) Start Date: 04/25/14 Status: Ordered atenolol 50 mg oral tablet See Instructions, TAKE 1 TABLET BY MOUTH TWICE A DAY., # 180 tabs, 2 Refill(s), eRx: [facility] [id number], TAKE 1 TABLET BY MOUTH TWICE A DAY. Special Instructions: TAKE 1 TABLET BY MOUTH TWICE A DAY. Start Date: 04/26/14 Status: Ordered Claritin 10 mg oral tablet 1 tabs, Oral, Daily, # 30 tabs, 0 Refill(s) Start Date: 04/25/14 Status: Ordered cyclobenzaprine 10 mg oral tablet See Instructions, 0.5-1 TABS ORAL Q8HR,PRN: NEEDED FOR SPASM, # 100 tabs, eRx : [facility] 55490, 0.5-1 TABS ORAL Q8HR,PRN: NEEDED FOR SPASM Special Instructions: 0.5-1 TABS ORAL Q8HR,PRN: NEEDED FOR SPASM Start Date: 08/08/14 Status: Ordered Glucometer strips (DME) DME Item patient tests 1 time daily for dx. 250.00 Uses [employer] next EZ Monitor, See Instructions, # 1 boxes, 3 Refill(s), Pharmacy: [id number], patient tests 1 time daily for dx. 250.00 Uses [employer] next EZ Monitor, Supply Special Instructions: patient tests 1 time daily for dx. 250.00 Uses [employer] next EZ Monitor Start Date: 07/20/14 Status: Ordered hydrochlorothiazide 25 mg oral tablet See Instructions, TAKE 1 TABLET BY MOUTH EVERY DAY, # 90 tabs, JANAY, eRx: [facility] [id number], TAKE 1 TABLET BY MOUTH EVERY DAY Special Instructions: TAKE 1 TABLET BY MOUTH EVERY DAY Start Date: 07/13/14 Status: Ordered ICaps with Lutein and Zeaxan tabs, Oral, Daily, 0 Refill(s) Start Date: 04/25/14 Status: Ordered metFORMIN 500 mg oral tablet See Instructions, 1 TABS ORAL DAILY, # 90 tabs, eRx: [facility] [id number] , 1 TABS ORAL DAILY Special Instructions: 1 TABS ORAL DAILY Start Date: 07/13/14 Status: Ordered Norvasc 10 mg oral tablet See Instructions, TAKE 1 TABLET BY MOUTH EVERY DAY., # 90 tabs, eRx: [facility] [id number], TAKE 1 TABLET BY MOUTH EVERY DAY. Special Instructions: TAKE 1 TABLET BY MOUTH EVERY DAY. Start Date: 07/13/14 Status: Ordered Plavix 75 mg tablet See Instructions, TAKE 1 TABLET BY MOUTH EVERY DAY., # 90 tabs, eRx: [facility] [id number], TAKE 1 TABLET BY MOUTH EVERY DAY. Special Instructions: TAKE 1 TABLET BY MOUTH EVERY DAY. Start Date: 07/13/14 Status: Ordered PriLOSEC 20 mg oral delayed release capsule See Instructions, TAKE 1 CAPSULE BY MOUTH EVERY DAY., # 90 caps, eRx: [facility] [id number], TAKE 1 CAPSULE BY MOUTH EVERY DAY. Special Instructions: TAKE 1 CAPSULE BY MOUTH EVERY DAY. Start Date: 07/13/14 Status: Ordered Tylenol Regular Strength 325 mg oral tablet tabs, Oral, q4hr, 0 Refill(s) Start Date: 04/25/14 Status: Ordered Zocor 20 mg oral tablet See Instructions, 1 TABS ORAL BEDTIME (ONCE A DAY), # 90 tabs, eRx: [facility] 13700, 1 TABS ORAL BEDTIME (ONCE A DAY) Special Instructions: 1 TABS ORAL BEDTIME (ONCE A DAY) Start Date: 08/30/14 Status: Ordered Results No data available for this section Immunizations Vaccine Date Refusal Reason influenza virus vaccine, live 06/29/13 influenza virus vaccine, live 06/24/12 tetanus-diphth toxoids (Td) adult/adol 12/16/02 zoster vaccine live 05/09/14 Procedures Procedure Date Related Diagnosis Body Site Colonoscopy 2009 Plastic surgery1 1nose Social History Social History Type Response Smoking Status Never smoker Assessment and Plan No data available for this section
--- OUTSIDE RECORDS SUMMARY | 2017-02-11 22:56 | XMS REPORT | Referral Summary ---
Author Author [facility] Organization [facility] Address Unknown Phone Unavailable Care Team Providers Care Classroom Monitor Name Role Phone Avery Perez Primary Care Physician [phone] Encounter VC Date(s): 02/28/15 - 02/28/15 [facility], Surgery [address] [place] [address] [place] [phone] Discharge Diagnosis: Post-operative state Discharge Diagnosis: Cholecystitis with cholelithiasis Discharge Diagnosis: Dizzy Discharge Diagnosis: Headache Discharge Disposition: 01-Home or Self Care Attending Physician: Antonia Foss APRN Admitting Physician: Antonia Foss APRN Referring Physician: Jori Perez MD Vital Signs Most recent to 1 oldest [Reference Range]: Temperature Tympanic 36.7 degC [36.6-38.1 degC] (02/28/15 10:37 AM) Peripheral Pulse 64 bpm Rate [60-100 bpm] (02/28/15 10:37 AM) Respiratory Rate 16 br/min [14-20 br/min] (02/28/15 10:37 AM) Blood Pressure 122/66 mmHg [90-140/60-90 mmHg] (02/28/15 10:37 AM) Problem List Condition Effective Dates Status [...] DAY., # 180 tabs, 1 Refill(s), eRx: [facility] [id number], TAKE 1 TABLET BY MOUTH TWICE A DAY. Start Date: 08/21/15 Status: Ordered Claritin 10 mg oral tablet 1 tabs, Oral, Daily, # 30 tabs, 0 Refill(s) Start Date: 04/25/14 Status: Ordered clopidogrel 75 mg oral tablet 1 tabs, Oral, Daily, # 90 tabs, 1 Refill(s), Pharmacy: [facility], 1 tabs Oral Daily Start Date: 01/23/15 Status: Ordered Coolio NEXT TEST STRIPS 100'S See Instructions, USE TO TEST BLOOD SUGARS ONCE DAILY, # 100 strip, 2 Refill(s) , eRx: [facility] [id number], USE TO TEST BLOOD SUGARS ONCE DAILY Start Date: 05/16/15 Status: Ordered cyclobenzaprine 10 mg oral tablet See Instructions, 0.5-1 TABS ORAL Q8HR,PRN: NEEDED FOR SPASM, # 100 tabs, eRx : [facility] 15595, 0.5-1 TABS ORAL Q8HR,PRN: NEEDED FOR SPASM Start Date: 08/08/14 Status: Ordered Glucometer strips (DME) DME Item patient tests 1 time daily for dx. 250.00 Uses [employer] next EZ Monitor, See Instructions, # 1 boxes, 3 Refill(s), Pharmacy: [facility] [id number], patient tests 1 time daily for dx. 250.00 Uses [employer] next EZ Monitor, Supply Start Date: 07/20/14 Status: Ordered hydrochlorothiazide 25 mg oral tablet mg tabs, Oral, Daily, 0 Refill(s) Start Date: 08/24/15 Status: Ordered ICaps with Lutein and Zeaxan tabs, Oral, Daily, 0 Refill(s) Start Date: 04/25/14 Status: Ordered metFORMIN 500 mg oral tablet See Instructions, 1 TABS ORAL DAILY, # 90 tabs, 1 Refill(s), eRx: [facility] 60552, 1 TABS ORAL DAILY Start Date: 08/21/15 Status: Ordered Norvasc 10 mg oral tablet See Instructions, TAKE 1 TABLET BY MOUTH EVERY DAY., # 90 tabs, 1 Refill(s), eRx : [facility] 81305, TAKE 1 TABLET BY MOUTH EVERY DAY. Start Date: 08/21/15 Status: Ordered Plavix 75 mg tablet See Instructions, TAKE 1 TABLET BY MOUTH EVERY DAY., # 90 tabs, eRx: [facility] 40963, TAKE 1 TABLET BY MOUTH EVERY DAY. Start Date: 01/23/15 Status: Ordered PriLOSEC 20 mg oral delayed release capsule See Instructions, TAKE 1 CAPSULE BY MOUTH EVERY DAY., # 90 caps, 1 Refill(s), eRx: [facility] [id number], TAKE 1 CAPSULE BY MOUTH EVERY DAY. [...] live 05/09/14 1[facility] History[facility] Procedures Procedure Date Related Diagnosis Body Site Laparoscopic cholecystectomy with 02/16/15 cholangiography Colonoscopies1 05/11/10 Colonoscopy 2010 ECTOPIC 1969 Appendectomy Plastic surgery2 plastic surgery on nose 1MULTIADENOMATOUS POLYPS 3 YEARS REPEAT 2nose Social History Social History Type Response Smoking Status Never smoker Assessment and Plan Extracted from: Title: Ambulatory Patient Education Author: Antonia Foss HPLC CHEMIST Date : 02/28/15 Surgery Laparoscopic Cholecystectomy Laparoscopic cholecystectomy is surgery [...] vitamins, herbs, eye drops, creams , and yguo-slm-savblxl medicines. Previous problems you or members of [...] Released: 09/08/2006 Document Revised: 06/29/2014 Document Reviewed: [facility] Patient Information 2014 [employer]. No follow up information was provided. Extracted from: Title: Office Visit Note Author: Antonia Foss HPLC CHEMIST Date: 02/28/15 Assessment/Plan Cholecystitis with cholelithiasis Ordered: Postoperative Est 28946 Dizzy There could be a variety of reasons to account for the dizziness, headache, nausea. I do not feel that these are particularly surgical in nature. There may be a component of dehydration, as well as other possibilities.This is more of a primary care area and there may be something that I should order that I haven't thought of, or I may order lab that really isn't necessary. Therefore, I would like to defer any investigations and treatment options for the dizziness/headache to your primary care physician. We'll try and get an appointment this week to address these issues. If symptoms get noticeably worse before her appointment you may need to present to the emergency room. Ordered: Postoperative Est 08621 Headache Ordered: Postoperative Est 50012 Post-operative state Continue to use common sense. If an activity is causing pain, that is a sign that you need to "back off" and wait a little longer before lifting something that heavy or doing that activity. Do not hesitate to contact us with any surgical concerns. Continue with your general medical care through your primary care physician. Ordered: Postoperative Est 87763
--- OUTSIDE RECORDS SUMMARY | 2017-02-11 22:56 | XMS REPORT | Referral Summary ---
Author Author [facility] Organization [facility] Address Unknown Phone Unavailable Care Team Providers Care Sport Shoe Spike Assembler Name Role Phone Avery Perez Primary Care Physician [phone] Encounter VC Date(s): 07/25/15 - 07/25/15 [facility] [address] [place] [id number] Discharge Disposition: 01-Home or Self Care Attending Physician: Jori Perez MD Admitting Physician: Jori Perez MD Vital Signs Most recent to 1 oldest [Reference Range]: Blood Pressure 140/80 mmHg [90-140/60-90 mmHg] (07/25/15 8:57 AM) Problem List Condition Effective Dates Status [...] TWICE A DAY., # 180 tabs, eRx: [facility] [id number], TAKE 1 TABLET BY MOUTH TWICE A DAY. Start Date: 02/27/15 Status: Ordered Claritin 10 mg oral tablet 1 tabs, Oral, Daily, # 30 tabs, 0 Refill(s) Start Date: 04/25/14 Status: Ordered clopidogrel 75 mg oral tablet 1 tabs, Oral, Daily, # 90 tabs, 1 Refill(s), Pharmacy: [facility] [id number], 1 tabs Oral Daily Start Date: 01/23/15 Status: Ordered Foot[employer] NEXT TEST STRIPS 100'S See Instructions, USE TO TEST BLOOD SUGARS ONCE DAILY, # 100 strip, 2 Refill(s) , eRx: [facility] [id number], USE TO TEST BLOOD SUGARS ONCE DAILY Start Date: 05/16/15 Status: Ordered cyclobenzaprine 10 mg oral tablet See Instructions, 0.5-1 TABS ORAL Q8HR,PRN: NEEDED FOR SPASM, # 100 tabs, eRx : [facility] 35192, 0.5-1 TABS ORAL Q8HR,PRN: NEEDED FOR SPASM Start Date: 08/08/14 Status: Ordered Glucometer strips (DME) DME Item patient tests 1 time daily for dx. 250.00 Uses [employer] next EZ Monitor, See Instructions, # 1 boxes, 3 Refill(s), Pharmacy: [facility] [id number], patient tests 1 time daily for dx. 250.00 Uses [employer] next EZ Monitor, Supply Start Date: 07/20/14 Status: Ordered ICaps with Lutein and Zeaxan tabs, Oral, Daily, 0 Refill(s) Start Date: 04/25/14 Status: Ordered metFORMIN 500 mg oral tablet See Instructions, 1 TABS ORAL DAILY, # 90 tabs, eRx: [facility] [id number] , 1 TABS ORAL DAILY Start Date: 05/15/15 Status: Ordered Norvasc 10 mg oral tablet See Instructions, TAKE 1 TABLET BY MOUTH EVERY DAY., # 90 tabs, eRx: [facility] [id number], TAKE 1 TABLET BY MOUTH EVERY DAY. Start Date: 05/15/15 Status: Ordered Plavix 75 mg tablet See Instructions, TAKE 1 TABLET BY MOUTH EVERY DAY., # 90 tabs, eRx: [facility] 64524, TAKE 1 TABLET BY MOUTH EVERY DAY. Start Date: 01/23/15 Status: Ordered PriLOSEC 20 mg oral delayed release capsule See Instructions, TAKE 1 CAPSULE BY MOUTH EVERY DAY., # 90 caps, eRx: [facility] 14351, TAKE 1 CAPSULE BY MOUTH EVERY DAY. Start Date: 05/15/15 Status: Ordered Tylenol Regular Strength 325 mg oral tablet tabs, Oral, q4hr, 0 Refill(s) Start Date: 04/25/14 Status: Ordered Zocor 20 mg oral tablet See Instructions, 1 TABS ORAL BEDTIME (ONCE A DAY), # 90 tabs, 1 Refill(s), eRx : [facility] 26358, 1 TABS ORAL BEDTIME (ONCE A DAY) Start Date: 03/27/15 Status: Ordered Zofran ODT 4 mg oral tablet, disintegrating 4 mg 1 tabs, Oral, q6hr, as needed for nausea/vomiting, 0 Refill(s) Start Date: 07/20/15 Status: Ordered Results Chemistry Most recent to 1 oldest [Reference Range]: TSH with Reflex Free 3.01 T4 [0.35-4.94] (07/25/15 9:37 AM) Hgb A1c [4.1-5.6 %] 6.2 % *HI* (07/25/15 9:37 AM) eAvg Glucose 131.2 mg/dL (07/25/15 9:37 AM) Immunizations Vaccine Date Refusal Reason tetanus/diphth/pertuss (Tdap) adult/adol 05/27/13 influenza virus vaccine, inactivated1 07/05/15 influenza virus vaccine, live 06/29/13 influenza virus vaccine, live 06/24/12 pneumococcal 13-valent conjugate vaccine2 07/05/15 tetanus-diphth toxoids (Td) adult/adol 12/16/02 zoster vaccine live 05/09/14 1[facility] 2[facility] Procedures Procedure Date Related Diagnosis Body Site Laparoscopic cholecystectomy with 02/16/15 cholangiography Colonoscopies1 8/20/10 Colonoscopy 2010 ECTOPIC 1969 Appendectomy Plastic surgery2 plastic surgery on nose 1MULTIADENOMATOUS POLYPS 3 YEARS REPEAT 2nose Social History Social History Type Response Smoking Status Never smoker Assessment and Plan Extracted from: Title: Ambulatory Patient Education Author: Jori Perez MD Date: Ophthalmology Amaurosis Fugax Amaurosis fugax is a condition in which a person loses sight in one eye. The loss of vision in the affected eye may be total or partial. It usually lasts just a few seconds or minutes. Then, it returns to normal. Occasionally, it may last for several hours. This is caused by interruption of blood flow to the artery that supplies blood to the retina (lining at the back of the eye, contains nerves needed for sight). The temporary loss of blood flow causes symptoms similar to a stroke. The family of symptoms that happen from a loss of blood flow is called a Transient Ischemic Attack (TIA, mini-stroke). In the case of amaurosis fugax, the eye is the organ that is involved. SYMPTOMS Painless, sudden loss of vision in one eye. Visual loss is often from the top down, appearing like a curtain being pulled down over the field of vision. Rapid return of vision. Vision generally comes back in a few minutes to several hours. CAUSES TIAs and amaurosis fugax are caused by a loss of blood flow. This can be due to a buildup of cholesterol and fats (plaque) in the arteries or the heart. If some of that plaque comes off the artery and gets into the bloodstream, it can flow to the artery that supplies blood to the retina, blocking the flow of blood to the retina. When that happens, vision is lost for as long as the blood flow is interrupted. Factors that make it more likely you will have amaurosis fugax at some point include: Smoking. Poorly controlled diabetes. High blood pressure. High cholesterol levels. Medical conditions that may increase the risk of an attack of amaurosis fugax include: Heart disease. Diseases of the heart valves. Certain diseases of the blood (sickle cell anemia, leukemia). Blood clotting (coagulation) disorders. Artery inflammation (temporal arteritis, giant cell arteritis). Since amaurosis fugax is an "incomplete stroke," in some people it can be a sign of an increased risk for an actual stroke. A stroke can result in permanent vision loss or loss of other body functions. As a result, caring for yourself after amaurosis fugax means taking many of the same steps you should take to prevent a stroke. HOME CARE INSTRUCTIONS Only take jmno-[id number] or prescription medicines for pain, discomfort, or fever as directed by your caregiver. Take any medicines that are prescribed for control of your blood pressure and cholesterol levels. Keep diabetes under control as well as possible. Stop smoking. Follow diet instructions, if your caregiver has given them to you. Try to get at least 30 minutes of moderate physical activity every day. If you have not been active, talk to your caregiver about how to get started. SEEK IMMEDIATE MEDICAL CARE IF: You lose vision in one or both eyes again, even if only for a short period of time. You lose vision in one eye and it does not recover within a very brief time (less than 5-10 minutes). The sooner you see an master lay out specialist ( hematology nurse), the better the chance of regaining some vision, in the case of a central retinal artery occlusion (CRAO, blockage of central retinal artery) . However, most cases of CRAO result in some degree of permanent visual loss, even with aggressive treatment. You have symptoms of a stroke: Weakness in one side of your body. Difficulty speaking or thinking clearly. Lack of coordination. Document Released: 06/17/2009 Document Revised: 11/30/2012 Document Reviewed: [employer] Patient Information 2015 [employer]. This information is not intended to replace advice given to you by your health care provider. Make sure you discuss any questions you have with your health care provider. No follow up information was provided. Extracted from: Title: Office Visit Note Author: Jori Perez MD Date: 07/25/15 Assessment/Plan Coronary artery disease This issue is stable and appropriate refills, lab, and f/u have been discussed. [facility] Cardiology consult pending. Diabetes This issue is stable and appropriate refills, lab, and f/u have been discussed. The patient was notified for the need for regular quarterly f/u of their diabetes. Further any pertinent medication, supplies, etc were refilled. Additionally, they are to have annual eye exams, foot exams, and regular care. Elevated blood sugar This issue is stable and appropriate refills, lab, and f/u have been discussed. Lab pending. Ordered: Hemoglobin A1c Fatigue Work up pending. GERD This issue is stable and appropriate refills, lab, and f/u have been discussed. High blood pressure This issue is stable and appropriate refills, lab, and f/ u have been discussed. The patient reports their blood pressure has been stable at home and is not having any significant or related problems. There has been no chest pain, chest pressure, soa/dominguez. The patient has family members present who are agreeable with today's plan and have no additional concerns or requests. here. Palpitation, Palpitations Echo, consult, Holter, CXR pending. EKGshowed NSR in the ER by report. Ordered: ECG Holter Echo,2D W/Doppl 51323 TSH with Reflex Free T4 XR Chest 2 Views Transient ischemic attack (TIA)
--- OUTSIDE RECORDS SUMMARY | 2017-02-11 22:56 | XMS REPORT | Referral Summary ---
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 Name Role Phone Avery Perez Primary Care Physician [phone] Encounter VC Date(s): 05/29/16 - 05/29/16 [facility] [address] [place] [address] Discharge Disposition: 01-Home or Self Care Attending Physician: Jori Perez MD Admitting Physician: Jori Perez MD Vital Signs Most recent to 1 oldest [Reference Range]: Blood Pressure 140/80 mmHg [90-140/60-90 mmHg] (05/29/16 10:05 AM) Problem List Condition Effective Dates Status [...] Daily, # 90 tabs, 3 Refill(s), Pharmacy: [id number], 1 tabs Oral Daily Start Date: 01/17/16 Status: Ordered amoxicillin 250 mg oral capsule 250 mg 1 caps, Oral, TID, # 30 caps, 0 Refill(s) Start Date: 05/29/16 Stop Date: 06/08/16 Status: Ordered Aspir 81 mg, Oral, Daily, [...] MOUTH EVERY DAY, # 90 tabs, eRx: [id number], TAKE 1 TABLET BY MOUTH EVERY DAY Start Date: 04/17/16 Status: Ordered [employer] NEXT TEST STRIPS 100'S See Instructions, USE TO TEST BLOOD SUGARS ONCE DAILY, # 100 strip, 2 Refill(s) , eRx: [id number], USE TO TEST BLOOD SUGARS ONCE DAILY Start Date: 05/16/15 Status: Ordered cyclobenzaprine 10 mg oral tablet See Instructions, 0.5-1 TABS ORAL Q8HR,PRN: NEEDED FOR SPASM, # 100 tabs, eRx : [id number], 0.5-1 TABS ORAL Q8HR,PRN: NEEDED FOR SPASM Start Date: 10/24/15 Status: Ordered Glucometer strips (DME) DME Item patient tests 1 time daily for dx. 250.00 Uses Andrew Flipter next EZ Monitor, See Instructions, # 1 boxes, 3 Refill(s), Pharmacy: [id number], patient tests 1 time daily for dx. 250.00 Uses [employer] next EZ Monitor, Supply Start Date: 07/20/14 Status: Ordered hydrochlorothiazide 25 mg oral tablet See Instructions, TAKE 1 TABLET BY MOUTH DAILY, # 45 tabs, 1 Refill(s), eRx: [id number], TAKE 1 TABLET BY MOUTH DAILY Start Date: 02/16/16 Status: Ordered ICaps with Lutein and Zeaxan tabs, Oral, Daily, 0 Refill(s) Start Date: 04/25/14 Status: Ordered lutein 10 mg, Oral, Daily, 0 Refill(s) Start Date: 02/09/16 Status: Ordered metFORMIN 500 mg oral tablet See Instructions, TAKE 1 TABLET BY MOUTH DAILY, # 90 tabs, eRx: [id number], TAKE 1 TABLET BY MOUTH DAILY Start Date: 03/04/16 Status: Ordered omeprazole 40 mg oral delayed release capsule 40 mg 1 caps, Oral, Daily, # 90 caps, 0 Refill(s), Pharmacy: [id number], 1 caps Oral Daily Start Date: 05/29/16 Status: Ordered pravastatin 40 mg oral tablet 40 mg 1 tabs, Oral, Daily, # 90 tabs, 5 Refill(s), Pharmacy: [id number], 1 tabs Oral Daily Start Date: 09/27/15 Status: Ordered promethazine-codeine 6.25 mg-10 mg/5 mL oral syrup 5 mL, Oral, q4hr, as needed for cough, from urgent care, 0 Refill(s) Start Date: 05/29/16 Status: Ordered Tessalon 200 mg oral capsule 200 mg 1 caps, Oral, TID, # 30 caps, 0 Refill(s) Start Date: 05/29/16 Stop Date: 06/08/16 Status: Ordered Tylenol Regular Strength 325 mg [...] Patient Education Author: Jori Perez MD Date: 05/29/16 Family Medicine Arthritis, Nonspecific Arthritis is inflammation of a joint. This usually means pain, redness, warmth or swelling are present. One or more joints may be involved. There are a number of types of arthritis. Your caregiver may not be able to tell what type of arthritis you have right away. CAUSES The most common cause of arthritis is the wear and tear on the joint ( osteoarthritis). This causes damage to the cartilage, which can break down over time. The knees, hips, back and neck are most often affected by this type of arthritis. Other types of arthritis and common causes of joint pain include: Sprains and other injuries near the joint. Sometimes minor sprains and injuries cause pain and swelling that develop hours later. Rheumatoid arthritis. This affects hands, feet and knees. It usually affects both sides of your body at the same time. It is often associated with chronic ailments, fever, weight loss and general weakness. Crystal arthritis. Gout and pseudo gout can cause occasional acute severe pain, redness and swelling in the foot, ankle, or knee. Infectious arthritis. Bacteria can get into a joint through a break in overlying skin. This can cause infection of the joint. Bacteria and viruses can also spread through the blood and affect your joints. Drug, infectious and allergy reactions. Sometimes joints can become mildly painful and slightly swollen with these types of illnesses. SYMPTOMS Pain is the main symptom. Your joint or joints can also be red, swollen and warm or hot to the touch. You may have a fever with certain types of arthritis, or even feel overall ill. The joint with arthritis will hurt with movement. Stiffness is present with some types of arthritis. DIAGNOSIS Your caregiver will suspect arthritis based on your description of your symptoms and on your exam. Testing may be needed to find the type of arthritis: Blood and sometimes urine tests. X-ray tests and sometimes CT or MRI scans. Removal of fluid from the joint (arthrocentesis) is done to check for bacteria, crystals or other causes. Your caregiver (or a specialist) will numb the area over the joint with a local anesthetic, and use a needle to remove joint fluid for examination. This procedure is only minimally uncomfortable. Even with these tests, your caregiver may not be able to tell what kind of arthritis you have. Consultation with a specialist (second grade teacher) may be helpful. TREATMENT Your caregiver will discuss with you treatment specific to your type of arthritis. If the specific type cannot be determined, then the following general recommendations may apply. Treatment of severe joint pain includes: Rest. Elevation. Anti-inflammatory medication (for example, ibuprofen) may be prescribed. Avoiding activities that cause increased pain. Only take [id number]-[id number] or prescription medicines for pain and discomfort as recommended by your caregiver. Cold packs over an inflamed joint may be used for 10 to 15 minutes every hour. Hot packs sometimes feel better, but do not use overnight. Do not use hot packs if you are diabetic without your caregiver's permission. A cortisone shot into arthritic joints may help reduce pain and swelling. Any acute arthritis that gets worse over the next 1 to 2 days needs to be looked at to be sure there is no joint infection. Long-term arthritis treatment involves modifying activities and lifestyle to reduce joint stress jarring. This can include weight loss. Also, exercise is needed to nourish the joint cartilage and remove waste. This helps keep the muscles around the joint strong. HOME CARE INSTRUCTIONS Do not take aspirin to relieve pain if gout is suspected. This elevates uric acid levels. Only take weul-hab-xdklsro or prescription medicines for pain, discomfort or fever as directed by your caregiver. Rest the joint as much as possible. If your joint is swollen, keep it elevated. Use crutches if the painful joint is in your leg. Drinking plenty of fluids may help for certain types of arthritis. Follow your caregiver's dietary instructions. Try low-impact exercise such as: Swimming. Water aerobics. Biking. Walking. Morning stiffness is often relieved by a warm shower. Put your joints through regular oxipi-co-mbsxiv. SEEK MEDICAL CARE IF: You do not feel better in 24 hours or are getting worse. You have side effects to medications, or are not getting better with treatment. SEEK IMMEDIATE MEDICAL CARE IF: You have a fever. You develop severe joint pain, swelling or redness. Many joints are involved and become painful and swollen. There is severe back pain and/or leg weakness. You have loss of bowel or bladder control. This information is not intended to replace advice given to you by your health care provider. Make sure you discuss any questions you have with your health care provider. Document Released: 10/16/2005 Document Revised: 09/29/2015 Document Reviewed: [facility] Patient Information 2016 [employer]. No follow up information was provided. Extracted from: Title: Office Visit Note Author: Jori Perez MD Date: 05/29/16 Assessment/Plan Acute URI The patient's issue is nearly or completely resolved. There is no further issues or testing desired by them at this time. Saw [facility] and on Amoxil. Coronary artery disease This issue was reviewed, appears stable, and current therapy continued except as mentioned. Appropriate lab was reviewed from the most recent appropriate entry and lab was ordered if needed in the cpoe/nursing orders, and follow up recommended generally in 90 days and no later then six months. Depression This issue was reviewed, appears stable, and current therapy continued except as mentioned. Appropriate lab was reviewed from the most recent appropriate entry and lab was ordered if needed in the cpoe/nursing orders, and follow up recommended generally in 90 days and no later then six months. Mood stable. Diabetes This issue was reviewed, appears stable, [...] exams, foot exams, and regular care. Lab stable. GERD Please make the medication adjustments we discussed. Please notify the office for any difficulties or concerns. Prilosec to 40mgpo daily. Call report in 30 days or sooner prn. Hand pain Xrays pending. Meds offered and declined. [facility] Hand surgery for evaluation and injection ifappropriateat her request. Ordered: XR Hand Complete Bilateral Osteoporosis This issue was reviewed, appears stable, and current therapy continued except as mentioned. Appropriate lab was reviewed from the most recent appropriate entry and lab was ordered if needed in the cpoe/nursing orders, and follow up recommended generally in 90 days and no later then six months. Sinus infection The patient's issue is nearly or completely resolved. There is no further issues or testing desired by them at this time. Saw [facility] and on meds. Trigger finger of all digits of both hands To Hand surgery. The patient was given the vaccines requested per protocol and according to those needed for school/family/college/etc. Flu vaccine per request.
[2017-02-11] MEDS ORDERED: PRAV20TA4 PO (23:09)
--- OUTSIDE RECORDS SUMMARY | 2017-02-11 23:14 | XMS REPORT | Continuity of Care Document ---
Author Author [facility] Organization [facility] Address Unknown Phone Unavailable Allergies Medications Problems Procedures Results Encounters ACCT No. Visit Date/Time Discharge Status Pt. Type Provider Facility Loc./Unit Complaint [id number] 11/04/2013 15:14:00 11/04/2013 23 :59:59 CLS Outpatient
--- NOTE | 2017-02-11 23:25 | NUR ---
PROVIDER DR CRUMP IN ROOM TO PERFORM RECTAL EXAM AT THIS TIME.
[2017-02-11] MEDS ORDERED: ACETAMINOPHEN 500 MG TABLET PO ONE (23:30)
[2017-02-11] MEDS ORDERED: PROCHLORPERAZINE 10mg/2ml INJECTION IV ONE (23:30)
--- NOTE | 2017-02-11 23:50 | ERPDOC ---
Departure Disposition Decision Date: February 12, 2017 Disposition Decision Time: 02:04 Disposition: 02 TO [facility] Impression Impression Impression: Primary Impression: Acute hemorrhagic colitis Severity: Severe Condition: Improved Seen By: Physician only Referrals: FARIDEH PATEL MD (Family) Problems/Meds/Labs Reviewed?: Yes Medications reviewed and manag: Yes Follow up care ordered?: Yes Mental Status: Alert HPI - Abdominal Pain General Chief Complaint: GI Bleed Stated Complaint: RECTAL BLEEDING Time Seen by Provider: 22:59 Source: patient History/Exam Limitations: no limitations HPI - Abdominal Pain Initial Comments This morning the patient had a large hard stool followed by loose watery stool, and a small amount of blood. Since that time the patient has had at least 8 episodes of significant bright red blood from the rectum, with no further stool passage. Patient has also been having diffuse crampy low abdominal pain throughout the day. No history of diverticular disease, GI bleeds, or gastrointestinal problems in the past. Patient is only on Plavix for blood thinning Occurred At: home Onset: Rapid Duration: 12-24 hrs Quality: cramping Location: RLQ, LLQ Associated Symptoms: DENIES: back pain, chest pain, diaphoresis, fatigue, fever /chills, headache, heartburn, nausea/vomiting, rash, shortness of breath, swelling/mass in abdomen, syncope, weakness Hx of Similar Symptoms: No Allergies: Coded Allergies: No Known Drug Allergies (Verified Allergy, Unknown, 05/22/16) Past History Past Medical History Metabolic: hypercholesterolemia, hypertension, hypothyroidism ENMT: allergies Cardiac: CAD GI: GERD, IBS Female: other Neurological: CVA, TIA, headaches Musculoskeletal: back pain, osteoarthritis Psychological: depression Surgical History General: appendix, gallbladder Family History Family PMH: FOUND: CAD, CVA, asthma, cancer, depression, hypercholesterolemia, hypertension Vaccines Hx Influenza Vaccination: Yes (FALL 2014) Hx Pneumococcal Vaccination: Yes (WITHIN PAST 5 YEARS) Social History Does patient use chewing tobac: No Substance Use Type: does not use Current Occupational Status: retired Review of Systems Constitutional Constitutional: DENIES: appetite decrease, appetite increase, chills, dizziness , fever, weakness ENMT Ears: DENIES: pain Hearing: DENIES: hearing loss, tinnitus Balance: DENIES: vertigo Mouth/Throat: DENIES: change in swallowing, change in voice, hoarsness, painful swallowing, sore throat Cardiovascular Cardiac: DENIES: chest pain, dyspnea on exertion Rhythm/Rate: DENIES: irregular beat, palpitations, tachycardia Vascular: DENIES: pedal edema Pulmonary Respiratory: DENIES: cough, dyspnea, pleuritic chest pain GI Upper Abdomen: DENIES: dysphagia, food intolerances, heartburn/indigestion, hematemesis, nausea, pain, vomiting Lower Abdomen: blood in stool, diarrhea, DENIES: jere-colored stools, constipation, melena, pain, painful BM General: DENIES: burning, dysuria, frequency, pain, urgency Musculoskeletal General: DENIES: cramps, joint pain, joint swelling, pain, weakness Integumentary Skin: DENIES: rash, sores Neurological General: DENIES: headache, numbness, tingling, vertigo, weakness Physical Exam General General Nourishment: well nourished, well developed, appears stated age, no acute distress General Body Habitus: well groomed Vitals and Pain First Documented Vital Signs Date Time Temp Pulse Resp B/P Pulse Ox O2 Delivery O2 Flow Rate FiO2 02/11/17 22:58 97.7 80 16 205/98 96 Room Air Weight: Kilograms: 70.700 Height (feet): 4 Height (inches): 11.50 Triage Pain Scale: RN VS reviewed by Provider: Yes Normal Exams: Head: Normocephalic w/o trauma Eyes: Pupils are PERRLA w/ EOMI, No scleral icterus, irritation, or foreign bodies noted ENMT: No facial trauma, nasal exudates, pharyngeal erythema, or exudates are noted Neck: Full range of motion, without adenopathy, JVD, bruits or thyromegaly Chest/Resp: Clear all peterson, with good airflow, and symmetry bilaterally CV: Regular rate and rhythm, without murmur or gallop, Pulses 2+ all extremities, capillary refill, <2 seconds all ext., no pedal edema noted Lymphatic: No lymphadenopathy, or lymphedema noted Musculoskeletal: No tenderness, or deformity noted, good range of motion, all extremities Integumentary: No rashes, hives, or bruising noted, hair and nails, without abnormality Neurologic: Patient is alert, and oriented, cranial nerves, motor/sensory/ cerebellar, exams w/o gross deficits, to observation Psychiatric: Patient exhibits, appropriate attention, emotion and affect Abdomen (brief) Abdominal Brief: FOUND: bowel normo active x4, soft, NOT FOUND: distended, hepatosplenomegaly, pulsatile mass, tender Comments Rectal exam reveals a small posterior hemorrhoid noninflamed, no bleeding from the hemorrhoid, but patient has bloody mucus in the rectum, without misa bleeding. Progress Results/Orders Orders Procedure Category Date Status Time Iv Lock (Ed Only) EDM 02/11/17 Transmitted 23:28 Cbc W/Auto LAB 02/11/17 Complete Diff-Reflex Manual Cmp - Comprehensive LAB 02/11/17 Complete Metabolic Prochlorperazine PHA 02/11/17 Complete (Compazine) 23:30 Acetaminophen PHA 02/11/17 Complete (Tylenol Extra 23:30 Ct Abd/Pelvis CT 02/12/17 Taken W/Contrast Only 00:10 Iohexol (Omnipaque) PHA 02/12/17 Complete 00:34 Normal Saline (Ns) PHA 02/12/17 Complete 00:35 Saline Flush (Iv PHA 02/12/17 Complete Flush) 00:35 Lab Results Laboratory Tests Test 02/11/17 00:05 White Blood Count 12.1T/MM3 Red Blood Count 5.09M/MM3 Hemoglobin 14.3GM/DL Hematocrit 41.8% Mean Corpuscular Volume 82.1UM3 Mean Corpuscular Hemoglobin 28.1UUG Mean Corpuscular Hemoglobin Concent 34.2GM/DL RDW Standard Deviation 40.1FL Platelet Count 144T/MM3 Mean Platelet Volume 12.2UM3 Immature Granulocyte % (Auto) 0.2% Neutrophils (%) (Auto) 75.3% Lymphocytes (%) (Auto) 17.6% Monocytes (%) (Auto) 5.6% Eosinophils (%) (Auto) 1.1% Basophils (%) (Auto) 0.2% Absolute Immature Granulocyte (auto 0.02T/MM3 Absolute Neutrophils (auto) 9.1T/MM3 Absolute Lymphocytes (auto) 2.1T/MM3 Absolute Monocytes (auto) 0.7T/MM3 Absolute Eosinophils (auto) 0.1T/MM3 Absolute Basophils (auto) 0.0T/MM3 Turbidity < 20 Sodium Level 146MEQ/L Potassium Level 3.0MEQ/L Chloride Level 105MEQ/L Carbon Dioxide Level 25MEQ/L Anion Gap 16MEQ/L Blood Urea Nitrogen 25.0MG/DL Creatinine 0.6MG/DL Glomerular Filtration Rate Calc 97 BUN/Creatinine Ratio 42RATIO Glucose Level 179MG/DL Calculated Osmolality 289MOSM/KG Calcium Level 9.6MG/DL Total Bilirubin 1.10MG/DL Icterus Index < 2 Aspartate Amino Transf (AST/SGOT) 25U/L Alanine Aminotransferase (ALT/SGPT) 46U/L Alkaline Phosphatase 80U/L Total Protein 7.1G/DL Albumin 4.6G/DL Globulin 2.5G/DL Albumin/Globulin Ratio 1.8RATIO Chemistry Specimen Hemolysis 19 Medications Current ED Medications Prochlorperazine Edisylate (Compazine) 5 mg O ONCE IV Last administered on 01:24; Start 02/11/17 at 23:30; Stop 02/11/17 at 23:31; Status DC Acetaminophen (Tylenol Extra Strength) 1,000 mg O ONCE PO Last administered on 02/12/17 01:24; Start 02/11/17 at 23:30; Stop 02/11/17 at 23:31; Status DC Iohexol 1 bottle 1 bottle STK-MED ONCE .ROUTE ; Start 02/12/17 at 00:34; Stop at 00:35; Status DC Sodium Chloride (NS) 100 ml @ As Directed STK-MED ONCE .ROUTE ; Start 02/12/17 at 00:35; Stop 02/12/17 at 00:36; Status DC Sodium Chloride (Iv Flush) 10 ml STK-MED ONCE .ROUTE ; Start 02/12/17 at 00:35; Stop 02/12/17 at 00:36; Status DC Progress Progress Patient given 1 L normal saline IV fluid bolus, Compazine 5 mg, and Tylenol 1000 mg orally for pain - CBC - n CMP - n CT abdomen - diffuse wall thickening of the descending colon, consistent with inflammatory or infectious colitis. Patient is discussed with Dr. Mcnair, will be admitted inpatient to medical telemetry for continued treatment. DANK CRUMP MD February 11, 2017 23:50
[2017-02-12] VITALS (7 sets, daily range): BP systolic 113–151; BP diastolic 58–71; PULSE 61–68; RESP 16–18; TEMP 96.2–97.9; O2SAT 91–97; Ht 149.9 cm; Wt 72.1 kg
[2017-02-12] MEDS ORDERED: IOHEXOL 300 MG/ML 100ml INJECTION ONE (00:34)
[2017-02-12] MEDS ORDERED: SALINE FLUSH 10ml SYRINGE ONE (00:35)
[2017-02-12] MEDS ORDERED: NORMAL SALINE 100 ML ONE (00:35)
--- NOTE | 2017-02-12 00:41 | NUR ---
IMAGING PT LEAVES VIA CART [facility] IMAGING STAFF AT THIS TIME.
--- NOTE | 2017-02-12 00:55 | NUR ---
RETURN PT RETURNS TO ROOM.
[2017-02-12] MEDS ORDERED: NORMAL SALINE 500 ML IV SCH (02:23)
[2017-02-12] MEDS ORDERED: ACETAMINOPHEN 325 MG TABLET PO PRN (02:30)
[2017-02-12] MEDS ORDERED: ONDANSETRON 4mg/2ml INJECTION IV PRN (02:30)
[2017-02-12] MEDS ORDERED: DEXTROSE 50% SYRINGE 50ml (Eq. 1 AMP) IV PRN (02:30)
[2017-02-12] MEDS ORDERED: HYDROMORPHONE 2mg/ml INJECTION IV PRN (02:30)
[2017-02-12] MEDS ORDERED: GLUCOSE ORAL GEL 40% 37.5 G TUBE PO PRN (02:30)
[2017-02-12] MEDS ORDERED: INSULIN ASPART 100 UNIT/ML SQ PRN (02:30)
[2017-02-12] MEDS ORDERED: NS KCL 20 MEQ 1,000 ML IV SCH (02:30)
--- NOTE | 2017-02-12 02:43 | NUR ---
REPORT GIVEN TO SAKSHI TELLO AT THIS TIME.
--- OUTSIDE RECORDS SUMMARY | 2017-02-12 02:46 | XMS REPORT | Continuity of Care Document ---
Author Author [facility] Organization [facility] Address Unknown Phone Unavailable Allergies Medications Problems Procedures Results Encounters ACCT No. Visit Date/Time Discharge Status Pt. Type Provider Facility Loc./Unit Complaint [id number] 11/04/2013 15:14:00 11/04/2013 23 :59:59 CLS Outpatient
[2017-02-12 02:56] LABS: HGB - HEMOGLOBIN 13.8 GM/DL (12-16)
--- NOTE | 2017-02-12 03:07 | NUR ---
DEPART PT IS TRANSFERRED VIA WHEELCHAIR TO MEDICAL UNIT ROOM 146 AT THIS TIME.
--- NOTE | 2017-02-12 03:07 | NUR ---
Arrival Pt arrived by wheelchair accompanied by daughter, Dominga at this time. Pt ambulated self to bed. Then got up to use the BR. Steady with ambulation. Had a misa bloody liquid stool that included darker colored clots and also clear yellow urine out as charted. Oriented to hospital environment. Discussed and co-signed safety agreement. Requested that patient call when needs to ambulate and turned bed alarm on. Denies pain at this time. Will continue to monitor.
--- NOTE | 2017-02-12 04:17 | HPPDOC ---
JOSEP NAIDU MD 02/12/17 0408: HPI - Adult Date DATE: 02/12/17 TIME: 04:03 General Chief Complaint: bloody stools History of Present Illness This is a 77 y/o female who had onset of abdomen pain yesterday am. The patient had a hard stool and at the end of the stool there was bright red blood. The patient initially thought related to previous hemorrhoids. The patient had a total of 8 bloody stools over a 12 hour period of time. The patient had chills and sweats but no documented fever. The pain in the abdomen was described as diffuse. The patient in the past had a colonoscopy 6 or 7 years ago that demonstrated colonic polyps. In the ED the patient's vital signs are stable. The patient did have Hemoccult pos stools. The patient had a CT of the abdomen which demonstrated diffuse colitis of the descending colon. The patient had no signs of ischemia. The patient has had no further bloody stools in the ED setting. The patient's initial Hg is reasonable. AT this time will admit with flagyl and cipro and serial hg. Past Medical History Past Medical History dyslipidemia, HTN, hypothyroidism, GERD,CAD, TIA, DM2 Surgical History Patient's Surgical History: tubal pregnacy, rhinoplasty, cholecystectomy Current Medications Home Meds Reported Medications Pravastatin Sodium (Pravastatin Sodium) 20 Mg Tablet, PO HS, TAB Take 1 tablet, by mouth, daily at bedtime. 02/11/17 Carvedilol (Carvedilol) 25 Mg Tablet, 1 TAB PO HS, TAB BEST WITH FOOD. 02/23/16 Carvedilol (Carvedilol) 12.5 Mg Tablet, 1 TAB PO DAILY, TAB BEST WITH FOOD. 02/23/16 Acetaminophen (Tylenol) 325 Mg Tablet, 1 TAB PO DAILY Y for PAIN 02/15/15 B2/Vit A,C & E/Lut/Zeaxanth/Mn (Icaps Tablet) 1 Each Tablet.er, 1 TAB PO DAILY 02/15/15 Clopidogrel Bisulfate (Plavix) 75 Mg Tablet, 1 TAB PO DAILY 02/15/15 Loratadine (Claritin) 10 Mg Tablet, 1 TAB PO DAILY 02/15/15 Hydrochlorothiazide (Hydrochlorothiazide) 25 Mg Tablet, 1 TAB PO WB, TAB 02/04/15 Metformin HCl (Metformin HCl) 500 Mg Tablet, 500 MG PO WB, TAB Take one tablet, by mouth, one time a day with breakfast. 02/04/15 Omeprazole (Prilosec) 20 Mg Capsule.dr, 20 MG PO DAILY 12/19/10 Aspirin (Aspir 81) 81 Mg Tablet.dr, 81 MG PO DAILY 05/11/10 Amlodipine Besylate (Norvasc) 10 Mg Tablet, 10 MG PO DAILY 05/11/10 Allergies: Coded Allergies: No Known Drug Allergies (Verified Allergy, Unknown, 02/12/17) Family History Family History: fatjer doed 59 <O. ,ptjer doed at age 00 frp, p;d age Social History Smoking Status: Never smoker Does patient use chewing tobac: No Substance Use Type: does not use Marital Status: Sexuality: male partner Household Members: spouse Current Occupational Status: retired Advance Directives: No DPOA for Healthcare Only Review of Systems All Other Systems All Other Systems: Reviewed (remainder of 10-point ROS Neg.) Comments The pateint denied any headache, no change in vision, no fever but chills and sweats, no neck or jaw pain, no chest pain. every moning she has cough that is not colored. no heart palpitations, diffuse abdomen cramping all 4 quadrants, no urine symptoms, no swelling of legs, no focal neuro concerns. 10 point ROS otherwise negative. except for described above. Physical Exam General General Nourishment: well nourished, well developed, apparent age, adult General Body Habitus: well groomed Vital Signs Vital Signs Date Time Temp Pulse Resp B/P Pulse Ox O2 Delivery O2 Flow Rate FiO2 02/12/17 03:14 97.4 62 16 151/71 97 Room Air Height (Feet): 4 Height (Inches): 11.00 Telemetry Rhythm: Sinus Rhythm Eyes Brief: FOUND: PERRL, NOT FOUND: EOMI, other, scleral icterus, trauma Neck Brief: FOUND: midline, NOT FOUND: JVD, nuchal rigidity, other, spasm, tenderness, tracheal deviation Respiratory Brief: FOUND: clear all peterson, equal bilaterally, NOT FOUND: other , rales, spasm, symmetrical, tenderness, wheezes Cardiovascular (brief) Cardiac Brief: FOUND: regular rate, regular rhythm, NOT FOUND: click, gallop, murmur, other, pedal edema, peripheral edema, rub Capillary Refill: <2 sec Abdomen (brief) Comments abdomen is soft per nursing with mild pain to palpation, bowel sounds are present, mild obese. Musculoskeletal (brief) Musculoskeletal Brief: NOT FOUND: deformity, extremities move equally, loss of motion, other, spasm, tenderness Integumentary (brief) Integumentary Brief: FOUND: dry, pink, warm Neurologic (brief) Comments no focal deficits Neurologic RN Documented GCS Eye Opening: Verbal: Motor: Total: Psychiatric (brief) FOUND: alert, attentive Laboratory Laboratory Tests Test 02/11/17 00:05 02/12/17 02:50 White Blood Count 12.1T/MM3 Red Blood Count 5.09M/MM3 Hemoglobin 14.3GM/DL 13.8GM/DL Hematocrit 41.8% Mean Corpuscular Volume 82.1UM3 Mean Corpuscular Hemoglobin 28.1UUG Mean Corpuscular Hemoglobin Concent 34.2GM/DL RDW Standard Deviation 40.1FL Platelet Count 144T/MM3 Mean Platelet Volume 12.2UM3 Immature Granulocyte % (Auto) 0.2% Neutrophils (%) (Auto) 75.3% Lymphocytes (%) (Auto) 17.6% Monocytes (%) (Auto) 5.6% Eosinophils (%) (Auto) 1.1% Basophils (%) (Auto) 0.2% Absolute Immature Granulocyte (auto 0.02T/MM3 Absolute Neutrophils (auto) 9.1T/MM3 Absolute Lymphocytes (auto) 2.1T/MM3 Absolute Monocytes (auto) 0.7T/MM3 Absolute Eosinophils (auto) 0.1T/MM3 Absolute Basophils (auto) 0.0T/MM3 Turbidity < 20 Sodium Level 146MEQ/L Potassium Level 3.0MEQ/L Chloride Level 105MEQ/L Carbon Dioxide Level 25MEQ/L Anion Gap 16MEQ/L Blood Urea Nitrogen 25.0MG/DL Creatinine 0.6MG/DL Glomerular Filtration Rate Calc 97 BUN/Creatinine Ratio 42RATIO Glucose Level 179MG/DL Calculated Osmolality 289MOSM/KG Calcium Level 9.6MG/DL Total Bilirubin 1.10MG/DL Icterus Index < 2 Aspartate Amino Transf (AST/SGOT) 25U/L Alanine Aminotransferase (ALT/SGPT) 46U/L Alkaline Phosphatase 80U/L Total Protein 7.1G/DL Albumin 4.6G/DL Globulin 2.5G/DL Albumin/Globulin Ratio 1.8RATIO Chemistry Specimen Hemolysis [address] abd and pelvis with descending colon colitis. radiology cannot exclude 100% malignancy. Assessment & Plan Assessment 1. descending colon colitis acute POA: flagyl, cipro, fluids, repeat labs later this morning. CT does not describe ischemic changes. colonoscopy in the past c/w polyps per patient. Note also the liklihood of diverticuli. Lactic Acid pending. 2. lower GI bleed acute POA: most likely secondary to # 1. serial hg, currently no need to transfuse, bleeding scan will be of no help. CT already indicates the area most likely to be source of bleeding anyway. NPO, IVF, no indication for acute endoscopy. In fact would be not recommended with the acute inflammatory process ocurring. hold plavix and aspirin 3. anemia of acute blood loss acute POA: follow hg serially, transfuse ifless than 7 or bleeding were to acutely worsen 4. HTN chronic POA: hold norvasc, b malissa, diuretic to start with. restart as indicated 5. DM2 chronic POA: correctional plan only for now, adjust as indicated 6. GERD chronic POA: PPI 7. DVT ppx; SCD only 8. gastric ppx: PPI Code Status Full Code Hospital Course Summary Disclaimer The hospital course summary below is not to be considered part of the above Progress Note. JEFF DELGADO MD 02/12/17 1351: Past Medical History Current Medications Home Meds Reported Medications Pravastatin Sodium (Pravastatin Sodium) 20 Mg Tablet, PO HS, TAB Take 1 tablet, by mouth, daily at bedtime. 02/11/17 Carvedilol (Carvedilol) 25 Mg Tablet, 1 TAB PO HS, TAB BEST WITH FOOD. 02/23/16 Carvedilol (Carvedilol) 12.5 Mg Tablet, 1 TAB PO DAILY, TAB BEST WITH FOOD. 02/23/16 Acetaminophen (Tylenol) 325 Mg Tablet, 1 TAB PO DAILY Y for PAIN 02/15/15 B2/Vit A,C & E/Lut/Zeaxanth/Mn (Icaps Tablet) 1 Each Tablet.er, 1 TAB PO DAILY 02/15/15 Clopidogrel Bisulfate (Plavix) 75 Mg Tablet, 1 TAB PO DAILY 02/15/15 Loratadine (Claritin) 10 Mg Tablet, 1 TAB PO DAILY 02/15/15 Hydrochlorothiazide (Hydrochlorothiazide) 25 Mg Tablet, 1 TAB PO WB, TAB 02/04/15 Metformin HCl (Metformin HCl) 500 Mg Tablet, 500 MG PO WB, TAB Take one tablet, by mouth, one time a day with breakfast. 02/04/15 Omeprazole (Prilosec) 20 Mg Capsule.dr, 20 MG PO DAILY 12/19/10 Aspirin (Aspir 81) 81 Mg Tablet.dr, 81 MG PO DAILY 05/11/10 Amlodipine Besylate (Norvasc) 10 Mg Tablet, 10 MG PO DAILY 05/11/10 Allergies: Coded Allergies: No Known Drug Allergies (Verified Allergy, Unknown, 02/12/17) Assessment & Plan Assessment Dr. Naidu's note reviewed. Mrs. Bryant interviewed and examined. CC: Abdominal pain/hematochezia HPI: Mrs. Bryant 77-year-old female who had the sudden onset of abdominal pain with diarrhea yesterday morning. She describes feeling well the prior day and had not had a bowel movement for about 48 hours. She describes sudden urge to defecate prompting her to stop en route to [place] where she subsequently had 3 painful for him stools followed by 4 loose bowel movements over the next 30 minutes. Stools were complete by intense pain and cramping which subsided when bowel movements ceased. There was a small amount of blood on the tissue when she wiped. She then proceeded on to [place] to visit her at the hospital and had no further stools until late in the afternoon when she began having recurrent bloody diarrhea (with at least 8 events) with recurrent abdominal pain/cramping. She presented to the emergency room at [address] scan suggested left-sided colitis with minimal diverticular disease. Hemoglobin was 14.3 on the patient was hypertensive on arrival. She denied lightheadedness , fever, or nausea/vomiting. Only recent travel has been to [place]; she reports consuming chicken on a regular basis but rarely eats hamburger. She is not aware of any food that is suspicious and no one else has had similar GI illness. She has no past history of acute GI bleed. Patient was admitted due to recurrent rectal bleeding. She had one bloody stool shortly after admission to the hospital but since that time has had no further bleeding and cramping/pain has improved progressively and seemed to correlate with bowel activity. PH/SH/FH: agree with that recorded above with additions of osteoarthritis/ osteoporosis and depression. Patient underwent unilateral salpingo-oophorectomy for the tubal , has had an appendectomy, and bilateral cataract extractions. Patient has wine consumption occasionally but not regularly. PCP is Dr. Perez and she would like her to be her alternate decision-maker although has not completed DPOA paperwork. Full code per patient request. Family history should read father at 59 of a stroke but also had coronary disease and hypertension. Mother had hypertension and Parkinson's and at age 99. There is extensive family history of coronary disease affecting not only her father. Paternal grandmother and aunt and multiple uncles. One brother had bladder cancer and 1 brother and paternal grandfather had strokes. ROS: 10 point review is as previously noted per history of present illness. Patient does complain of some chronic arthralgias involving her hip and knees due to degenerative disease. EXAM: General-temperature 96.2, blood pressure 139/69. NAD, alert, cooperative HEENT-PERRL, EOMI without nystagmus, conjunctiva clear, sclera anicteric, conjugate gaze, facial structures symmetric, oropharynx clear, neck supple and without adenopathy Lungs-respirations nonlabored with good airflow, breath sounds clear anteriorly/ posteriorly Cardiac-regular rhythm, S1-S2, no murmur appreciated Abd-soft, nontender, bowel sounds diminished. There is no discomfort on palpation in the left lower quadrant at this time Ext-without edema Skin-without generalized rash or evidence of skin breakdown/wounds Neuro-moving all extremities well, motor tone and power normal, sensation intact to light touch 4 extremities, cranial nerves II through XII intact Psych-calm, cooperative, pleasant DATA: CT of the abdomen/ pelvis is been reviewed by myself revealing thickening of the descending colon without evidence of ischemic change and only minimal diverticuli present. White count 12.1 on admission but normalized after several hours, hemoglobin has dropped from 14.3-12.9 overnight. INR 1.02; potassium 3.0, sodium 146, mild hyperglycemia with presenting glucose 179 and subsequent improvement, renal function and liver enzymes normal. A/P: Acute left-sided colitis Acute GI bleed-lower Abdominal pain/cramping-improving Hypokalemia Hypernatremia Hypertension Diabetes mellitus-A1c 6.1 on 12/04/16 GERD DJD/osteoporosis CAD-patient reports no history of CA or need for intervention, echo 08/06 with ejection fraction 71%, mild to moderate MR Clinically improving on Cipro and metronidazole, hemoglobin has dropped slightly but not critically. Continue to monitor every 6 hours but if remains relatively stable through late in the day will switch to every 12 hour assessments. May be able start clear liquids later today. Potassium being replaced IV; will switch to half-normal saline infusion with potassium after K runs completed. Continue PPI, resume by mouth carvedilol, hold aspirin and Plavix at this time. Plan/Intensity of Service Outpatient records reviewed, CT scan reviewed by myself, laboratory data reviewed, discussed with nursing/case management. DVT Prophylaxis: SCD'S Hospital Course Summary Hospital Course Summary 02/12/17-admission Patient admitted with acute onset abdominal pain/cramping in conjunction with bowel movements/diarrhea/rectal bleeding. CT scan with evidence of colitis involving the descending colon but no evidence of ischemic colitis and minimal diverticuli present. Started on Cipro/Flagyl overnight, clinically improved this morning and no further bleeding since escort service attendant. Hemoglobin has dropped slightly but not critically. Continue to monitor every 6 hours but if remains relatively stable through late in the day will switch to every 12 hour assessments. May be able start clear liquids later today. Continue PPI, resume by mouth carvedilol, hold aspirin and Plavix at this time. JOSEP NAIDU MD February 12, 2017 04:08 JEFF DELGADO MD February 12, 2017 13:51
[2017-02-12 05:21] LABS: BASOPHILS % (AUTO) 0.2 % (0-2); EOSINOPHILS # (AUTO) 0.2 T/MM3 (0-0.5); EOSINOPHILS % (AUTO) 1.6 % (0-4); HCT - HEMATOCRIT 41.2 % (36-46); HGB - HEMOGLOBIN 13.7 GM/DL (12-16); IMMATURE GRANULOCYTE # (AUTO) 0.02 T/MM3 (0.00-0.03); IMMATURE GRANULOCYTE % (AUTO) 0.2 % (0.0-0.5); LYMPHOCYTES # (AUTO) 2.7 T/MM3 (1-4.8); LYMPHOCYTES % (AUTO) 26.8 % (23-45); MEAN CORPUSCULAR HGB 28.1 UUG (26-34); MEAN CORPUSCULAR HGB CONC(MCHC 33.3 GM/DL (31-37); MEAN CORPUSCULAR VOLUME 84.6 UM3 (80-100); MEAN PLATELET VOLUME 12.3 UM3 (9.4-12.4); MONOCYTES # (AUTO) 0.7 T/MM3 (0-0.8); MONOCYTES % (AUTO) 6.5 % (0-9.0); NEUTROPHILS #(AUTO)-ABSOLUTE 6.5 T/MM3 (1.8-7.7); NEUTROPHILS % (AUTO) 64.7 % (33-66); RED BLOOD COUNT 4.87 M/MM3 (4.00-5.20)
[2017-02-12] MEDS: PANTOPRAZOLE 40mg INJECTION IV SCH (05:30)
[2017-02-12 05:36] LABS: ANION GAP 14 MEQ/L (5-15); BUN/CREATININE RATIO 35 RATIO (6-26); CALCIUM 8.9 MG/DL (8.4-10.2); CHLORIDE 106 MEQ/L (98-107); CO2 - CARBON DIOXIDE 26 MEQ/L (22-30); CREATININE 0.6 MG/DL (0.7-1.2); GLOMERULAR FILTRATION RATE 97; GLUCOSE 109 MG/DL (65-110); SODIUM 146 MEQ/L (134-144)
[2017-02-12 06:15] LABS: INR 1.02 (0.77-1.03); PROTHROMBIN TIME 11.2 SEC (9.48-12.52); PTT 26.8 SEC (24-36)
--- NOTE | 2017-02-12 06:24 | NUR ---
Status Pt A/Ox3. Very pleasant and easy to work with. Reports intermittent abdominal cramping, but it only lasts for very less than a minute. Did not want PRN analgesic. LLQ of abd tender with palpation. VSS on RA. Only up once since arriving on unit to use BR. Uses call light appropriately. NPO status maintained. Bed alarm on. Will continue to monitor.
--- NOTE | 2017-02-12 08:05 | DI ---
Indication: ITS.REASON: lower gi bleed with low abd pain PROCEDURE: CT ABD/PELVIS W/CONTRAST ONLY: Encounter: Initial Comparison: February 04, 2015 Technique: Axial CT images were performed through the abdomen and pelvis after the administration of intravenous contrast. Coronal and sagittal two-dimensional reformats. Automated Exposure Control and Iterative Reconstruction dose reducing techniques were utilized. Contrast: Omnipaque 300 89 mL Findings: The lung bases are clear. Stable benign granuloma in the left lower lobe. Stable cyst in the right hepatic lobe. No bile duct dilatation. The gallbladder is absent. Granulomatous disease and small cysts in the spleen. The pancreas is stable. Adrenal glands and kidneys are stable. No abdominal or pelvic lymphadenopathy. Bladder is normal. Uterus is grossly normal. No free fluid. Significant wall thickening and inflammation in the descending colon without significant diverticular disease. No evidence of a bowel obstruction. Mild atherosclerotic plaque in the arterial vasculature. No evidence of mesenteric artery or vein occlusion. Bone windows show degenerative changes in the spine. 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 Impression: Significant descending colitis could be infectious, inflammatory or ischemic. Recommend further evaluation with colonoscopy after resolution of the acute phase to exclude any underlying lesion or neoplasm. There is a preliminary report by [facility]. .
[2017-02-12 08:32] LABS: HGB - HEMOGLOBIN 12.9 GM/DL (12-16)
[2017-02-12] MEDS ORDERED: METRONIDAZOLE IVPB 500 MG in NORMAL SALINE 100 ML IV SCH (09:00)
[2017-02-12] MEDS ORDERED: CIPROFLOXACIN 400mg in D5W 200ml BAG IV SCH (09:00)
[2017-02-12] MEDS ORDERED: CIPROFLOXACIN 400 MG in D5W 200 ML IV SCH (09:00)
[2017-02-12 11:36] LABS: HCT - HEMATOCRIT 41.8 % (36-46); HGB - HEMOGLOBIN 14.3 GM/DL (12-16); MEAN CORPUSCULAR HGB 28.1 UUG (26-34); MEAN CORPUSCULAR HGB CONC(MCHC 34.2 GM/DL (31-37); MEAN CORPUSCULAR VOLUME 82.1 UM3 (80-100); MEAN PLATELET VOLUME 12.2 UM3 (9.4-12.4); RED BLOOD COUNT 5.09 M/MM3 (4.00-5.20); WBC - WHITE BLOOD COUNT 12.1 T/MM3 (4.5-11.0)
[2017-02-12 11:37] LABS: BASOPHILS % (AUTO) 0.2 % (0-2); EOSINOPHILS # (AUTO) 0.1 T/MM3 (0-0.5); EOSINOPHILS % (AUTO) 1.1 % (0-4); IMMATURE GRANULOCYTE # (AUTO) 0.02 T/MM3 (0.00-0.03); IMMATURE GRANULOCYTE % (AUTO) 0.2 % (0.0-0.5); LYMPHOCYTES # (AUTO) 2.1 T/MM3 (1-4.8); LYMPHOCYTES % (AUTO) 17.6 % (23-45); MONOCYTES # (AUTO) 0.7 T/MM3 (0-0.8); MONOCYTES % (AUTO) 5.6 % (0-9.0); NEUTROPHILS #(AUTO)-ABSOLUTE 9.1 T/MM3 (1.8-7.7); NEUTROPHILS % (AUTO) 75.3 % (33-66)
[2017-02-12 11:40] LABS: ALBUMIN 4.6 G/DL (3.5-5.0); ALBUMIN/GLOBULIN RATIO 1.8 RATIO (1.1-2.2); ALKALINE PHOSPHATASE 80 U/L (38-126); ANION GAP 16 MEQ/L (5-15); BUN/CREATININE RATIO 42 RATIO (6-26); CALCIUM 9.6 MG/DL (8.4-10.2); CHLORIDE 105 MEQ/L (98-107); CO2 - CARBON DIOXIDE 25 MEQ/L (22-30); CREATININE 0.6 MG/DL (0.7-1.2); GLOMERULAR FILTRATION RATE 97; GLUCOSE 179 MG/DL (65-110); SODIUM 146 MEQ/L (134-144); TOTAL PROTEIN 7.1 G/DL (6.3-8.2)
[2017-02-12 11:41] LABS: ALT (SGPT) 46 U/L (9-52); AST (SGOT) 25 U/L (14-36)
[2017-02-12] MEDS: POTASSIUM CHLORIDE 10 MEQ, LIDOCAINE 1% 10 MG in NORMAL SALINE 100 ML IV SCH ×4 (11:42→17:36)
--- NOTE | 2017-02-12 13:09 | NUR ---
CM CM IN TO VISIT WITH PT. CM EXPLAINED ROLE AND PROVIDED CONTACT INFORMATION. PT DENIES NEEDS AND IS AWARE TO CALL CM SHOULD NEEDS [facility].
[2017-02-12] MEDS: METRONIDAZOLE IVPB 500 MG in NORMAL SALINE 100 ML IV SCH ×2 (13:19→20:30)
[2017-02-12] MEDS ORDERED: POTASSIUM CHLORIDE 20 MEQ in 1/2 NS 1,000 ML IV SCH (14:00)
[2017-02-12] MEDS ORDERED: 1/2 NS w/ KCL 20mEq 1,000 ML IV SCH (14:15)
[2017-02-12 16:17] LABS: HGB - HEMOGLOBIN 12.9 GM/DL (12-16)
[2017-02-12] MEDS ORDERED: ZOLPIDEM 5 MG TABLET PO PRN (19:30)
[2017-02-12] MEDS ORDERED: HYDROCODONE/APAP 5 mg/325 mg TABLET PO PRN (19:30)
[2017-02-12] MEDS: 1/2 NS w/ KCL 20mEq 1,000 ML IV SCH (19:38)
[2017-02-12] MEDS: CIPROFLOXACIN 400 MG in D5W 200 ML IV SCH (19:39)
--- NOTE | 2017-02-12 19:53 | NUR ---
SUMMARY PT ALERT AND ORIENTED X3. ON RA. PLEASANT AND COOPERATIVE WITH TREATMENTS AND CARE. NPO ALL DAY UNTIL THIS EVENING CHARTED. NO PRN'S PAIN MEDS WERE GIVEN DURING THIS SHIFT. PT USES CALL LIGHT WHEN NEEDED. CALL LIGHT WITHIN REACH. FAMILY VISITED HER TODAY.
[2017-02-12] MEDS ORDERED: CARVEDILOL 25 MG TABLET PO SCH (22:00)
[2017-02-13] MEDS: 1/2 NS w/ KCL 20mEq 1,000 ML IV SCH ×3 (02:00→13:56)
[2017-02-13] MEDS: METRONIDAZOLE IVPB 500 MG in NORMAL SALINE 100 ML IV SCH ×2 (04:30→12:07)
[2017-02-13 05:28] LABS: ANION GAP 11 MEQ/L (5-15); BUN/CREATININE RATIO 22 RATIO (6-26); CALCIUM 8.1 MG/DL (8.4-10.2); CHLORIDE 110 MEQ/L (98-107); CO2 - CARBON DIOXIDE 23 MEQ/L (22-30); CREATININE 0.6 MG/DL (0.7-1.2); GLOMERULAR FILTRATION RATE 97; GLUCOSE 93 MG/DL (65-110); MAGNESIUM 1.7 MG/DL (1.6-2.3); POTASSIUM 3.8 MEQ/L (3.6-5); SODIUM 144 MEQ/L (134-144)
[2017-02-13 05:29] LABS: BASOPHILS % (AUTO) 0.3 % (0-2); EOSINOPHILS # (AUTO) 0.3 T/MM3 (0-0.5); EOSINOPHILS % (AUTO) 3.9 % (0-4); HCT - HEMATOCRIT 37.8 % (36-46); HGB - HEMOGLOBIN 12.1 GM/DL (12-16); IMMATURE GRANULOCYTE # (AUTO) 0.01 T/MM3 (0.00-0.03); IMMATURE GRANULOCYTE % (AUTO) 0.2 % (0.0-0.5); LYMPHOCYTES # (AUTO) 1.9 T/MM3 (1-4.8); LYMPHOCYTES % (AUTO) 28.1 % (23-45); MEAN CORPUSCULAR HGB 27.8 UUG (26-34); MEAN CORPUSCULAR VOLUME 86.7 UM3 (80-100); MEAN PLATELET VOLUME 12.1 UM3 (9.4-12.4); MONOCYTES # (AUTO) 0.4 T/MM3 (0-0.8); MONOCYTES % (AUTO) 6.2 % (0-9.0); NEUTROPHILS #(AUTO)-ABSOLUTE 4.1 T/MM3 (1.8-7.7); NEUTROPHILS % (AUTO) 61.3 % (33-66); RED BLOOD COUNT 4.36 M/MM3 (4.00-5.20); WBC - WHITE BLOOD COUNT 6.7 T/MM3 (4.5-11.0)
--- NOTE | 2017-02-13 05:39 | NUR ---
SHIFT SUMMARY PT IS A/O X 3. UP AT [facility], GAIT IS STEADY. PT DENIES PAIN. NEW ORDER PLACED FOR CLEAR LIQUID DIET. PT CARLA. DIET WELL. IV INFUSING WITHOUT DIFFICULT. NEW IV WAS STARTED IN PT'S RIGHT HAND. PT'S URINE IS STRAW COLOR/CLEAR.
[2017-02-13] MEDS: CIPROFLOXACIN 400 MG in D5W 200 ML IV SCH (06:00)
[2017-02-13] MEDS ORDERED: CARVEDILOL 12.5 MG TABLET PO SCH (08:00)
[2017-02-13 08:22] VITALS: BP 127/60; PULSE 60; RESP 18; TEMP 97; O2SAT 91
[2017-02-13 09:08] VITALS: RESP 18
[2017-02-13] MEDS: PANTOPRAZOLE 40mg INJECTION IV SCH (09:33)
--- NOTE | 2017-02-13 09:59 | NUR ---
DM screen Diet: CL; States she is feeling much better. Looking forward to [place] diet at lunch time. Home meds: Metformin; Pt states she usually eats 3 meals daily. She drinks non-sugary liquids, and checks BG regularly. Contact information was given.
--- NOTE | 2017-02-13 10:10 | NUR ---
CM CM IN TO VISIT PATIENT, SHE IS A&O. DAUGHTER IS PRESENT. PATIENT CONFIRMS DISCHARGE PLAN IS TO RETURN HOME, DENIES DISCHARGE NEEDS. THIS CM CONTACT INFORMATION GIVEN. DPOA INFORMATION HAD BEEN REQUESTED AND REVIEWED, FORMS LEFT.
[2017-02-13] MEDS ORDERED: PNEUMOCOCCAL 23 VACCINE 0.5 ML INJECTION IM ONE (14:45)
[2017-02-13] MEDS ORDERED: PNEUMOCOCCAL VAC. ADMIN. CHARGE INJ ONE (14:58)
[2017-02-13] MEDS ORDERED: METR500T PO (14:58)
[2017-02-13] MEDS ORDERED: CIPR-212 PO (14:58)
--- NOTE | 2017-02-13 15:09 | NUR ---
STATUS PT IS A/O X 3. UP AT [facility], GAIT IS STEADY. PT DENIES PAIN. PT IS ON RA. PT HAS BEEN IN A CLEAR LIQUID DIET AND SHE TOLERATES IT WELL. IV RUNNINGS WITHOUT A PROBLEM. CALLS WHEN NEEDED. PT SAT IN THE CHAIR FOR MEALS. CALL LIGHT WITHIN REACH.
--- NOTE | 2017-02-13 15:23 | DSPDOC ---
General Date Date DATE: 02/13/17 TIME: 15:09 Attending Physician Madelin Bergeron MD Admitting Physician Madelin Bergeron MD Consulting Physician Admitting Diagnosis lower gi bleed, colitis Discharge Diagnosis Left-sided hemorrhagic colitis Acute GI bleed-lower Abdominal pain/cramping-improving Hypokalemia, resolved Hypernatremia, resolved Hypertension Diabetes mellitus-type II, controlled GERD DJD/osteoporosis CAD Laboratory Laboratory Tests Test 02/12/17 04:10 02/12/17 04:58 02/12/17 05:57 02/12/17 08:25 Glucometer 108mg/dL (65-110) 116mg/dL (65-110) White Blood Count 10.0T/MM3 (4.5-11.0) Red Blood Count 4.87M/MM3 (4.00-5.20) Hemoglobin 13.7GM/DL (12-16) 12.9GM/DL (12-16) Hematocrit 41.2% (36-46) Mean Corpuscular Volume 84.6UM3 (80-100) Mean Corpuscular Hemoglobin 28.1UUG (26-34) Mean Corpuscular Hemoglobin Concent 33.3GM/DL (31-37) RDW Standard Deviation 41.9FL (36.9-50.2) Platelet Count 144T/MM3 (130-400) Mean Platelet Volume 12.3UM3 (9.4-12.4) Immature Granulocyte % (Auto) 0.2% (0.0-0.5) Neutrophils (%) (Auto) 64.7% (33-66) Lymphocytes (%) (Auto) 26.8% (23-45) Monocytes (%) (Auto) 6.5% (0-9.0) Eosinophils (%) (Auto) 1.6% (0-4) Basophils (%) (Auto) 0.2% (0-2) Absolute Immature Granulocyte (auto 0.02T/MM3 (0.00-0.03) Absolute Neutrophils (auto) 6.5T/MM3 (1.8-7.7) Absolute Lymphocytes (auto) 2.7T/MM3 (1-4.8) Absolute Monocytes (auto) 0.7T/MM3 (0-0.8) Absolute Eosinophils (auto) 0.2T/MM3 (0-0.5) Absolute Basophils (auto) 0.0T/MM3 (0-0.2) Prothromb Time International Ratio 1.02 (0.77-1.03) Activated Partial Thromboplast Time 26.8SEC (24-36) Turbidity < 20 (0-20) Sodium Level 146MEQ/L (134-144) Potassium Level 3.0MEQ/L (3.6-5) Chloride Level 106MEQ/L (98-107) Carbon Dioxide Level 26MEQ/L (22-30) Anion Gap 14MEQ/L (5-15) Blood Urea Nitrogen 21.0MG/DL (7-17) Creatinine 0.6MG/DL (0.7-1.2) Glomerular Filtration Rate Calc 97 BUN/Creatinine Ratio 35RATIO (6-26) Glucose Level 109MG/DL (65-110) Calculated Osmolality 285MOSM/KG (261-280) Calcium Level 8.9MG/DL (8.4-10.2) Icterus Index < 2 (0-7) Chemistry Specimen Hemolysis < 15 (0-25) Test 02/12/17 11:12 02/12/17 15:19 02/12/17 23:55 02/13/17 04:57 Glucometer 111mg/dL (65-110) 85mg/dL (65-110) Hemoglobin 12.9GM/DL (12-16) 12.1GM/DL (12-16) White Blood Count 6.7T/MM3 (4.5-11.0) Red Blood Count 4.36M/MM3 (4.00-5.20) Hematocrit 37.8% (36-46) Mean Corpuscular Volume 86.7UM3 (80-100) Mean Corpuscular Hemoglobin 27.8UUG (26-34) Mean Corpuscular Hemoglobin Concent 32.0GM/DL (31-37) RDW Standard Deviation 42.9FL (36.9-50.2) Platelet Count 125T/MM3 (130-400) Mean Platelet Volume 12.1UM3 (9.4-12.4) Immature Granulocyte % (Auto) 0.2% (0.0-0.5) Neutrophils (%) (Auto) 61.3% (33-66) Lymphocytes (%) (Auto) 28.1% (23-45) Monocytes (%) (Auto) 6.2% (0-9.0) Eosinophils (%) (Auto) 3.9% (0-4) Basophils (%) (Auto) 0.3% (0-2) Absolute Immature Granulocyte (auto 0.01T/MM3 (0.00-0.03) Absolute Neutrophils (auto) 4.1T/MM3 (1.8-7.7) Absolute Lymphocytes (auto) 1.9T/MM3 (1-4.8) Absolute Monocytes (auto) 0.4T/MM3 (0-0.8) Absolute Eosinophils (auto) 0.3T/MM3 (0-0.5) Absolute Basophils (auto) 0.0T/MM3 (0-0.2) Turbidity < 20 (0-20) Sodium Level 144MEQ/L (134-144) Potassium Level 3.8MEQ/L (3.6-5) Chloride Level 110MEQ/L (98-107) Carbon Dioxide Level 23MEQ/L (22-30) Anion Gap 11MEQ/L (5-15) Blood Urea Nitrogen 13.0MG/DL (7-17) Creatinine 0.6MG/DL (0.7-1.2) Glomerular Filtration Rate Calc 97 BUN/Creatinine Ratio 22RATIO (6-26) Glucose Level 93MG/DL (65-110) Calculated Osmolality 277MOSM/KG (261-280) Calcium Level 8.1MG/DL (8.4-10.2) Magnesium Level 1.7MG/DL (1.6-2.3) Icterus Index < 2 (0-7) Chemistry Specimen Hemolysis < 15 (0-25) Test 02/13/17 05:59 Glucometer 92mg/dL (65-110) Admission laboratory data on 02/12 included white count of 12.1, hemoglobin 14.3 , and platelet count 144,000. INR 1.02. Sodium 146, potassium 3.0, creatinine 0.6 with BUN 25. Admission blood sugar 179 and normal liver enzymes. Radiology CT of the abdomen and pelvis obtained in the emergency room on date of admission revealed thickening/inflammation in the descending colon consistent with colitis. There is no evidence of bowel obstruction or mesenteric artery or vein occlusion. Minimal diverticular disease was reported. Follow-up colonoscopy after acute phase resolved recommended. History of Present Illness This is a 77 y/o female who had onset of abdomen pain yesterday am. The patient had a hard stool and at the end of the stool there was bright red blood. The patient initially thought related to previous hemorrhoids. The patient had a total of 8 bloody stools over a 12 hour period of time. The patient had chills and sweats but no documented fever. The pain in the abdomen was described as diffuse. The patient in the past had a colonoscopy 6 or 7 years ago that demonstrated colonic polyps. In the ED the patient's vital signs are stable. The patient did have Hemoccult pos stools. The patient had a CT of the abdomen which demonstrated diffuse colitis of the descending colon. The patient had no signs of ischemia. The patient has had no further bloody stools in the ED setting. The patient's initial Hg is reasonable. Patient is admitted for IV antibiotics and serial hemoglobins. Hospital Course Acute left-sided hemorrhagic colitis Acute GI bleed-lower Abdominal pain/cramping-improving Hypokalemia Hypernatremia Hypertension Diabetes mellitus-A1c 6.1 on 12/04/16 GERD DJD/osteoporosis CAD-patient reports no history of NC or need for intervention, echo 08/06 with ejection fraction 71%, mild to moderate MR 02/12/17-admission Patient admitted with acute onset abdominal pain/cramping in conjunction with bowel movements/diarrhea/rectal bleeding. CT scan with evidence of colitis involving the descending colon but no evidence of ischemic colitis and minimal diverticuli present. Started on Cipro/Flagyl overnight, clinically improved this morning and no further bleeding since knife cutter. Hemoglobin has dropped slightly but not critically. Continue to monitor every 6 hours but if remains relatively stable through late in the day will switch to every 12 hour assessments. Clear liquids started late in the day. Continue PPI, resume by mouth carvedilol, hold aspirin and Plavix at this time. 02/13/17-discharge Patient has had minimal stool in the past 24 hour with only small amount of blood/mucus passed. She is tolerated clear liquids and is anxious to advance diet. She denied lightheadedness or dizziness and has had no fever or chills. She denied dyspnea or weakness. Abdominal examination is completely benign other than decreased bowel sounds. There is no tenderness on palpation in the left lower quadrant. Cardiac rhythm is regular and respirations are nonlabored with clear breath sounds. Hemoglobin has remained relatively stable with hemoglobin of 12.1. Electrolytes are unremarkable today. Given hemodynamic stability and resolution of an acute phase of GI bleed with stability of hemoglobin probably patient is stable for conversion to oral antibiotics and discharge home at this time. Case is briefly been discussed with Dr. Victor who will see the patient as an outpatient in a couple of weeks for follow-up colonoscopy. She'll remain off of Plavix at this time and until diet advances further have asked that she remain off metformin. Additionally amlodipine and hydrochlorothiazide are on hold pending follow-up with Dr. Patel. Blood pressure today was 127/60. She will continue oral metronidazole and ciprofloxacin for an additional 8 days for treatment of colitis. Stool culture has not been obtained due to rapid resolution of symptoms. >30 minutes spent on patient care and discharge care coordination today on the date of discharge. -- Problems: Code Status Full Code Home Meds Active Scripts Metronidazole (Flagyl) 500 Mg Tablet, 500 MG PO BID for 8 Days, #16 TAB Prov:MADELIN BERGERON MD 02/13/17 Ciprofloxacin HCl (Cipro) 500 Mg Tablet, 500 MG PO BID for 8 Days, #16 TAB Prov:MADELIN BERGERON MD 02/13/17 Reported Medications Pravastatin Sodium (Pravastatin Sodium) 20 Mg Tablet, PO HS, TAB Take 1 tablet, by mouth, daily at bedtime. 02/11/17 Carvedilol (Carvedilol) 25 Mg Tablet, 1 TAB PO HS, TAB BEST WITH FOOD. 02/23/16 Carvedilol (Carvedilol) 12.5 Mg Tablet, 1 TAB PO DAILY, TAB BEST WITH FOOD. 02/23/16 Acetaminophen (Tylenol) 325 Mg Tablet, 1 TAB PO DAILY Y for PAIN 02/15/15 B2/Vit A,C & E/Lut/Zeaxanth/Mn (Icaps Tablet) 1 Each Tablet.er, 1 TAB PO DAILY 02/15/15 Loratadine (Claritin) 10 Mg Tablet, 1 TAB PO DAILY 02/15/15 Omeprazole (Prilosec) 20 Mg Capsule., 20 MG PO DAILY 12/19/10 Aspirin (Aspir 81) 81 Mg Tablet., 81 MG PO DAILY 05/11/10 Discontinued Reported Medications Clopidogrel Bisulfate (Plavix) 75 Mg Tablet, 1 TAB PO DAILY 02/15/15 Hydrochlorothiazide (Hydrochlorothiazide) 25 Mg Tablet, 1 TAB PO WB, TAB 02/04/15 Metformin HCl (Metformin HCl) 500 Mg Tablet, 500 MG PO WB, TAB Take one tablet, by mouth, one time a day with breakfast. 02/04/15 Amlodipine Besylate (Norvasc) 10 Mg Tablet, 10 MG PO DAILY 05/11/10 Face to Face Encounter I met with patient on the day of dismissal and discussed follow up appointments , medications, and safety plan. Discharge Disposition Home Copies To 1: FARIDEH PATEL MD Copies To 2: SAKSHI VICTOR MD, FACS, CWS Documentation Requirements Diabetes Diabetes Type: Type 2 Diabetes Is Diabetes Contolled?: Contolled Related to Diabetes: Not related to MADELIN BERGERON MD February 13, 2017 15:18
[2017-02-13 16:08] LABS: HGB - HEMOGLOBIN 12.2 GM/DL (12-16)
[2017-02-13 16:23] VITALS: BP 125/60; PULSE 62; RESP 16; TEMP 97; O2SAT 91
--- NOTE | 2017-02-13 17:14 | NUR ---
DISMISSAL DISCHARGE INSTRUCTIONS WERE EXPLAIN AND GIVEN TO PT AND FAMILY MEMBER. NEW APPOINTMENTS, DIET, STOP TAKING AND NEW MEDICATIONS WERE EXPLAIN TO PT. X2 PRESCRIPTION WERE CALLED TO [facility] AND ORIGINAL PRESCRIPTIONS WERE SENT HOME WITH PT. DISCHARGE INSTRUCTIONS WERE SENT HOME WITH PT. PT LEFT THE UNIT WALKING ACCOMPANIED BY A FAMILY MEMBER. PT WAS ACCOMPANIED BY ONE STAFF MEMBER TO THE FRONT DOOR OF THE HOSPITAL. Addendum: 02/13/17 at 1721 by TRAN MONTEZ RN PT LEFT THE UNIT AT 16:52
[2017-02-13] MEDS ORDERED: CIPROFLOXACIN 500 MG TABLET PO SCH (21:00)
[2017-02-13] MEDS ORDERED: METRONIDAZOLE 500 MG TABLET PO SCH (21:00)
== END 2017-02-13 16:52 | disposition home or self-care (01) | DRG 392 ==
LOC: ED 22:50 → EDHOLD 02-12 02:23 → MED 02-12 03:07 → SRG 02-12 07:01 → MED 02-12 07:05
PROVIDERS: ADMIT Hospitalist; ATTEND Internal Medicine
DX: K52.9 Noninfective gastroenteritis and colitis, unspecified (principal); D62 Acute posthemorrhagic anemia; E87.0 Hyperosmolality and hypernatremia; E87.6 Hypokalemia; E11.9 Type 2 diabetes mellitus without complications; I10 Essential (primary) hypertension; E78.5 Hyperlipidemia, unspecified; E03.9 Hypothyroidism, unspecified; K21.9 Gastro-esophageal reflux disease without esophagitis; I25.10 Atherosclerotic heart disease of native coronary artery without angina pectoris; M19.91 Primary osteoarthritis, unspecified site; M81.0 Age-related osteoporosis without current pathological fracture; Z86.73 Personal history of transient ischemic attack (TIA), and cerebral infarction without residual deficits; Z79.82 Long term (current) use of aspirin
CPT/HCPCS: 36415; 80048; 80053; 82948; 83735; 85018; 85025; 85610; 85730; 86850; 86900; 86901; 90732; 96374